=== PATIENT | female | born 1975 | race Caucasian/White ===

== ENCOUNTER → 2021-04-06 14:13 | Outpatient (CLI) | payer OTHER, SELFPAY ==
--- NOTE | 2021-04-06 | FLU_PTH ---
PATIENT: LISANDRO CRAMER LOC: [facility] U#:[id number] AGE/SX: 49/F ROOM: RE04/06/[address]: Dr. Warren Lau MD : 1975 BED: DIS: SPEC #: [id number] RECD: 04/06/21 12:31 STATUS: ISAIAH TONY #: [id number] BERNADETTE: 04/06/21 00:[address]: Warren Lau DEPT: CYTOLOGY RECD BY: Allie Post Tissues: A - Thyroid gland, NOS B - Thyroid gland, NOS C - Thyroid gland, NOS D - Thyroid gland, NOS Procedures: Special Stain Group II Surgery Specimen Level IV Cytospin Fluid Cytology Other HEADER OPERATION: Fine needle aspiration left superior and left mid thyroid PRE-OP DIAGNOSIS: Abnormal thyroid ultrasound TISSUE SUBMITTED: A ? Left superior thyroid nodule fluid, B - Left superior thyroid nodule slides x12, C ? Left mid thyroid nodule fluid, D - Left mid thyroid nodule slides x12 DIAGNOSIS CYTOLOGY A. Fine needle aspiration, left superior thyroid nodule fluid (cytospin and cell block): Adequate for evaluation. Negative, consistent with benign follicular nodule. B. Fine needle aspiration, left superior thyroid nodule (smears): Adequate for evaluation. Negative, consistent with benign follicular/colloid nodule. C. Fine needle aspiration, left mid thyroid nodule fluid (cytospin and cell block): Negative for malignant cells. See comment. D. Fine needle aspiration, left mid thyroid nodule (smears): Adequate for evaluation. Negative, consistent with benign follicular nodule. AM:eladio 04/07/2021 COMMENT C. The specimen contains scattered benign follicular cells and blood. Clinical correlation is suggested. CYTOLOGY STUDY Slides are reviewed. CYTOLOGY GROSS A - Received is 30 ml of light brown cloudy fluid labeled with the patient's name and and designated per the requisition as left superior thyroid. Submitted for cytology preparation including cell block. B - Received are 12 smears labeled with the patient's name and designated per the requisition as left superior thyroid. Submitted for staining. C - Received is 30 ml of dark brown cloudy fluid labeled with the patient's name and and designated per the requisition as left mid thyroid. Submitted for cytology preparation including cell block. D - Received are 12 smears labeled with the patient's name and designated per the requisition as left mid thyroid. Submitted for staining. / eladio 04/06/21 TC:5 CPT: 34250 x2, 35479 x2, 49718 x2 ADDENDUM ADDENDUM ADDENDUM ADDENDUM ADDENDUM ADDENDUM ADDENDUM ADDENDUM ADDENDUM ADDENDUM ADDENDUM ADDENDUM ADDENDUM ADDENDUM 07/13/2021 10:14 ADDENDUM 07/13/2021 10:14 ADDENDUM 07/13/2021 10:14 ADDENDUM 07/13/2021 10:14 ADDENDUM 07/13/2021 10:14 This addendum is added to incorporate an outside pathology consultation report. The case was examined at [facility] (#[id number]) and the following diagnosis was rendered. A & B. Left superior thyroid nodule, fine needle aspiration: Benign. Benign follicular cells and abundant colloid consistent with a benign colloid nodule. C & D. Left mid thyroid nodule, fine needle aspiration: Benign. Benign follicular cells and abundant colloid consistent with a benign colloid nodule. Please see complete above mentioned consultation report in EMR
== END ==
LOC: LAB 14:22
PROVIDERS: PCP Surgery; Visit Provider Surgery
DX: E04.1 Nontoxic single thyroid nodule (principal)
CPT/HCPCS: 88108; 88161; 88305; 88313

== ENCOUNTER 2021-10-21 18:16 | Emergency (ER) | payer OTHER, SELFPAY ==
[2021-10-21 18:17] VITALS: BP 138/109; PULSE 87; RESP 18; TEMP 36.2; O2SAT 97; BMI 29.0
--- NOTE | 2021-10-21 18:20 | EKG12_ITS ---
Test Reason : CP Blood Pressure : / mmHG Vent. Rate : 068 BPM Atrial Rate : 068 BPM P-R Int : 148 ms QRS Dur : 084 ms QT Int : 408 ms P-R-T Axes : 065 014 038 degrees QTc Int : 433 ms Normal sinus rhythm Septal infarct , age undetermined Abnormal ECG Confirmed by SILVIANO SLAUGHTER, ANDRZEJ ([id number]), movie editor GRAHAM MUNOZ ([id number]) on 10/25/2021 8:55:55 AM Referred By: MARILU Confirmed By:ANDRZEJ SHORE MD
--- NOTE | 2021-10-21 19:00 | RAD_ITS ---
STUDY: X-RAY CHEST REASON FOR EXAM: Female, 46 years old. CHEST PAIN chest pain TECHNIQUE: XR Chest 1 View COMPARISON: None FINDINGS: There is no demonstrated pleural abnormality. Normal size heart. Normal mediastinum and geovanna. Normal visualized pulmonary arteries. Normal visualized aortic arch and descending thoracic aorta. There is a dextroscoliosis of the thoracic spine. Normal visualized ribs, clavicles, and shoulders. There is no demonstrated abnormality of the visualized soft tissue structures of the upper abdomen. RAD/Chest 1 View (Portable) IMPRESSION: There are no acute findings. Electronically Signed: Nathan Gagnon MD at 19:59 EDT ,
[2021-10-21 19:01] VITALS: O2SAT 98
[2021-10-21 19:21] LABS: Bacteria 0 SEEN /hpf (None Seen); Mucous, Urine 0 SEEN /hpf (<or=2+); Red Blood Cells-Urine 0 SEEN /hpf (0-5); White Blood Cells 0 SEEN /hpf (0-5)
--- NOTE | 2021-10-21 19:26 | CT_ITS ---
EXAM: CT ANGIOGRAPHY CHEST WITHOUT AND WITH INTRAVENOUS CONTRAST CLINICAL INDICATION: Chest Pain TECHNIQUE: Helically acquired angiography images were obtained of the chest without and with intravenous contrast. This CT exam was performed using one or more of the following dose reduction techniques: automated exposure control, adjustment of the mA and/or kV according to patient size, and/or use of iterative reconstruction technique. This report was created using [employer] report generation technology. MIP reconstructed images were created and reviewed. CONTRAST: IV 100mL [id number]-370 RADIATION DOSE: CTDIvol = 7.07 mGy, DLP = 214.33 mGy-cm COMPARISON: None. FINDINGS: PULMONARY ARTERIES: No demonstrated pulmonary embolism or arterial dissection. AORTA: Unremarkable. Normal in caliber. No evidence of dissection. GREAT VESSELS OF AORTIC ARCH: Unremarkable. Normal in caliber. No evidence of dissection. LUNGS AND PLEURAL SPACES: There are scattered blebs and bullae. This can be seen in pulmonary emphysema. No mass. No pleural effusion or thickening. No pneumothorax. HEART: Unremarkable. Heart size is normal. No pericardial effusion. No signs of right heart strain, ratio of right ventricle to left ventricle measures less than 1. MEDIASTINUM: Unremarkable. No mediastinal or hilar adenopathy. Esophagus is unremarkable. No hiatal hernia. THYROID: Unremarkable. No thyroid lesions. BONES/JOINTS: Unremarkable. No suspicious lytic or blastic abnormality. SOFT TISSUES: There are bilateral breast implants. LIVER: Multiple hypodense lesions in the liver. ACR White Paper guidelines ([place], et al. JACR 2017; 14(11):6743-3603.) suggest the following. For patients with low risk of malignancy, no further follow-up is necessary. For patients with high risk of malignancy (known malignancy with a propensity to metastasize to the liver, cirrhosis, and/or other hepatic risk factors), recommend follow-up abdominal CT or MR in [address]/CTA Chest W/WO Contrast IMPRESSION: 1. Multiple hypodense lesions in the liver. ACR White Paper guidelines ([place], et al. JACR 2017; 14(11):6529-4368.) suggest the following. For patients with low risk of malignancy, no further follow-up is necessary. For patients with high risk of malignancy (known malignancy with a propensity to metastasize to the liver, cirrhosis, and/or other hepatic risk factors), recommend follow-up abdominal CT or MR in 6 months. 2. No demonstrated pulmonary embolism or arterial dissection. Electronically Signed: Nathan Gagnon MD at 20:39 EDT ,
[2021-10-21 19:28] LABS: Absolute Lymphocyte Count 4.13 X10^3/uL (0.83-4.51); Absolute Neutrophil Count 5.3 X10^3/uL (2.0-7.7); Basophil# 0.11 X10^3/uL; Eosinophil# 0.61 X10^3/uL; Eosinophils% 5.7 % (0-5); Hematocrit 41.5 % (37-47); Lymphocyte # 4.13 X10^3/ul (0.83-4.51); Lymphocyte % 38.7 % (19-41); Mean Corp Hgb Conc 33.7 g/dL (32-36); Mean Corpuscular Hgb 32.6 pg (27.0-32.0); Mean Corpuscular Volume 96.5 fL (81-99); Mean Platelet Vol. 8.9 fl (6.2-12.0); Monocyte# 0.53 X10^3/uL; NRBC Flagged by Analyzer 0 % (0-5); Neutrophil # 5.27 X10^3/uL (2.7-7.7); Neutrophil % 49.3 % (47-70); Platelet Count 426 K/mm3 (150-450); White Blood Count 10.7 K/mm3 (4.4-11.0)
[2021-10-21 19:34] LABS: Internal QC Validated? YES +Cl - CLEAR BKGD; Pregnancy, Serum, hCG Quali. NEGATIVE Negative
[2021-10-21 19:34] LABS: Color, Urine Yellow (Yellow); Glucose, Dipstick Normal (Normal); Ketone-Dipstick Negative (Negative); Leukocyte Esterase-Dipstick Negative /ul (Negative); Nitrite-Dipstick Negative (Negative); Occult Blood-Urine Negative /ul (Negative); Protein-Dipstick Negative (Negative); Specific Gravity, Urine 1.005 (1.002-1.030); Urine Bilirubin Dipstick Negative (Negative); Urine Clarity Clear (Clear); Urine Urobilinogen Normal (Normal)
--- NOTE | 2021-10-21 19:37 | EDS_ITS ---
HPI History of Present Illness Chief Complaint: Chest Pain Narrative Narrative: Patient presents with intermittent chest pain that she has had for approximately 1 week. Will only last a few minutes and then dissipate. She is concerned because she states she is having heart problems for which she is following up with a upper cutter machine in the future. She states she has had EKGs which show left atrial enlargement and something else. She denies any exacerbating or alleviating factors to her chest pain. Additionally, over the last few days she developed right thoracic back pain in the area of her kidneys. She denies any dysuria or hematuria. No fevers or chills. She is a smoker. She presents because of the chest pain and the lower thoracic back pain. [facility] Medical History Asthma Chronic back pain Graves disease Home Medications albuterol sulfate 90 mcg/actuation aerosol inhaler 1 inh inhalation PRN PRN sob/wheezing 10/21/21 [History Last Taken Unknown] levothyroxine 125 mcg tablet 125 mcg PO DAILY 10/21/21 [History Last Taken Unknown] montelukast 10 mg tablet 10 mg PO DAILY 10/21/21 [History Last Taken Unknown] Allergy/AdvReac Type Severity Reaction Status Date / Time No Known Allergies Allergy Verified 10/21/21 18:19 Surgical History History of back surgery History of hysterectomy Hx of breast implants, bilateral Hx of thyroidectomy Social History Smoking Status: Current every day smoker tobacco type: cigarettes ROS ROS ED ROS Narrative Constitutional: No fever, no chills. HEENT: No sore throat. No neck pain. No loss of vision. No rhinorrhea. Cardiovascular: Midsternal chest pain, intermittent. No palpitations. No pedal edema. Respiratory: No cough, no shortness of breath. Abdominal: No abdominal pain. No nausea. No vomiting. Genitourinary: No dysuria. No hematuria. Musculoskeletal: No myalgias. No arthralgias. Right-sided lower thoracic/upper lumbar back pain around kidney area. Neurologic: No headaches. No dizziness. No lightheadedness. Skin: No rash. No change in color. Psychiatric: No depression. No anxiety. EXAM Physical Exam Narrative Exam Narrative: Afebrile. Vital signs noted. HEENT: Normocephalic. Atraumatic. PERRL, EOMI. Neck soft and supple. No point tenderness or step off. Cardiovascular: Regular rate and rhythm. No murmurs, rubs, or gallops appreciated. Respiratory: No tachypnea. Lungs clear to auscultation bilaterally. Gastrointestinal: Abdomen soft, nontender, with normoactive bowel sounds. No rebound or guarding. Neurological: Awake. Alert. Nonfocal, nonlateralizing. Skin: No rash. Normal color. No pallor. Musculoskeletal: No pedal edema. Full range of motion extremities. Const Vital Signs: 10/21/21 18:17 10/21/21 18:44 10/21/21 19:01 Temperature 97.1 F L Temperature Source Temporal Pulse Rate 87 Respiratory Rate 18 Respiratory Effort Normal Non-Labored Blood Pressure 138/109 H Blood Pressure Mean 118 Pulse Ox 97 98 Oxygen Delivery Method Room Air Room Air 10/21/21 20:49 10/21/21 21:00 Temperature Temperature Source Pulse Rate 69 60 Respiratory Rate 17 14 Respiratory Effort Blood Pressure 103/61 124/81 H Blood Pressure Mean 75 95 Pulse Ox 99 99 Oxygen Delivery Method Room Air Room Air Heart Score History: Slightly/Non-Suspicious ECG: Normal Age: >45 - <65 years Risk Factors: 1 or 2 Risk Factors Score: 2 MDM MDM MDM Narrative Medical decision making narrative: Nursing protocol orders were instituted. Her EKG demonstrates normal sinus rhythm at 68 bpm without ectopy or acute ST changes. She did state that she has had several EKGs which showed septal something. This is interpreted by the computer as septal infarct, age indeterminate. However, my interpretation shows no evidence of acute ST changes or STEMI. CBC grossly normal with normal white count 10.7, hemoglobin normal at 14. Platelet count normal at 426. Electrolyte panel is unremarkable. She has been having chest pain for a week. Her 0-hour troponin is less than 3. Serum is negative. Urinalysis shows no evidence of blood or infection. Chest x-ray interpreted by myself shows no acute process. Given her right flank pain, I did obtain a CTA to look for pulmonary embolism which shows no acute process, no PE. There is no dissection. At this point in time, she had been given Toradol for analgesia. I feel she can be discharged safely home with follow-up. Return instructions to the emergency department were reviewed. She will [facility] as scheduled. Disposition is discharged home in stable condition. Lab Data Attestation: I reviewed the patient's lab results. Labs: Laboratory Results - last 24 hr 10/21/21 10/21/21 10/21/21 19:13 19:13 19:13 WBC 10.7 RBC 4.30 Hgb 14.0 Hct 41.5 MCV 96.5 MCH 32.6 H MCHC 33.7 RDW Std Deviation 46.0 H RDW Coeff of Chela 13.0 Plt Count 426 MPV 8.9 Immature Gran % (Auto) 0.300 Neut % (Auto) 49.3 Lymph % (Auto) 38.7 [place] % (Auto) 5.0 Eos % (Auto) 5.7 H Baso % (Auto) 1.0 Absolute Neuts (auto) 5.3 Absolute Lymphs (auto) 4.13 Nucleated RBC % 0 Sodium 137 Potassium 3.6 Chloride 107 Carbon Dioxide 25.0 Anion Gap 5 BUN 7 Creatinine 0.87 Estim Creat Clear Calc 66.84 Est GFR (MDRD) Af Amer 90 Est GFR (MDRD) Non-Af 74 BUN/Creatinine Ratio 8.0 L Glucose 93 Calcium 8.9 Troponin I High Sens < 3 L Serum , Qual NEGATIVE Urine Color Urine Clarity Urine pH Ur Specific [place] Urine Protein Urine Glucose (UA) Urine Ketones Urine Occult Blood Urine Nitrite Urine Bilirubin Urine Urobilinogen Ur Leukocyte Esterase Urine RBC Urine WBC Ur Squamous Epith Cells Urine Bacteria Urine Mucus 10/21/21 19:15 WBC RBC Hgb Hct MCV MCH MCHC RDW Std Deviation RDW Coeff of [place] Plt Count MPV Immature Gran % (Auto) Neut % (Auto) Lymph % (Auto) [place] % (Auto) Eos % (Auto) Baso % (Auto) Absolute Neuts (auto) Absolute Lymphs (auto) Nucleated RBC % Sodium Potassium Chloride Carbon Dioxide Anion Gap BUN Creatinine Estim Creat Clear Calc Est GFR (MDRD) Af Amer Est GFR (MDRD) Non-Af BUN/Creatinine Ratio Glucose Calcium Troponin I High Sens Serum , Qual Urine Color Yellow Urine Clarity Clear Urine pH 7.0 Ur Specific [place] 1.005 Urine Protein Negative Urine Glucose (UA) Normal Urine Ketones Negative Urine Occult Blood Negative Urine Nitrite Negative Urine Bilirubin Negative Urine Urobilinogen Normal Ur Leukocyte Esterase Negative Urine RBC 0 SEEN Urine WBC 0 SEEN Ur Squamous Epith Cells 0-5 SEEN Urine Bacteria 0 SEEN Urine Mucus 0 SEEN Radiography Diagnostic Testing: Clinical Impression(s) from Imaging Studies Chest X-Ray 10/21/21 19:00 IMPRESSION: There are no acute findings. Electronically Signed: Nathan Gagnon MD at 19:59 EDT , Chest CTA 10/21/21 19:26 IMPRESSION: 1. Multiple hypodense lesions in the liver. ACR White Paper guidelines (June, et al. JACR 2017; 14(11):1158-5182.) suggest the following. For patients with low risk of malignancy, no further follow-up is necessary. For patients with high risk of malignancy (known malignancy with a propensity to metastasize to the liver, cirrhosis, and/or other hepatic risk factors), recommend follow-up abdominal CT or MR in 6 months. 2. No demonstrated pulmonary embolism or arterial dissection. Electronically Signed: Nathan Gagnon MD at 20:39 EDT , Discharge Plan Triage Chief Complaint: Chest Pain ED Provider: Baltazar Alexis Dx/Rx/DC Orders Clinical Impression: Chest pain, Acute thoracic back pain, Acute right flank pain Instructions: ED Chest Pain, Noncardiac, ED Chest Pain, Uncertain Cause, ED Flank Pain, Uncertain Cause Prescriptions: No Action levothyroxine 125 mcg tablet 125 mcg PO DAILY Label Comments: TAKE 1 TABLET BY MOUTH ONCE DAILY montelukast 10 mg tablet 10 mg PO DAILY albuterol sulfate 90 mcg/actuation HFA aerosol inhaler 1 inh INHALATION PRN PRN (Reason: sob/wheezing) Primary Care Provider: Warren Lau Referrals: Warren Lau MD [Primary Care Provider] - Activity Restrictions/Additional Instructions: Follow-up with [facility] as scheduled. Disposition Disposition: Home, Self Care
[2021-10-21 19:47] LABS: Anion Gap 5 (5-15); BUN 7 mg/dL (7-18); Calcium,Total 8.9 mg/dL (8.5-10.1); Chloride 107 mmol/L (98-107); Creatinine, Serum 0.87 mg/dL (0.55-1.02); EST Glomerular Filtration Rate 74 mL/min (>60); Est Glom Filt Rate - Afr Amer 90 mL/min (>60); Estimated Creatinine Clearance 66.84 ml/min; Glucose 93 mg/dL (74-106); Potassium 3.6 mmol/L (3.5-5.1); Sodium Level 137 mmol/L (136-145); Troponin-I HS < 3 pg/mL (3.0-54.0)
[2021-10-21 20:49] VITALS: BP 103/61; PULSE 69; RESP 17; O2SAT 99
[2021-10-21] MEDS: Ketorolac 30 MG/ML Syringe IV (20:57)
[2021-10-21 21:00] VITALS: BP 124/81; PULSE 60; RESP 14; O2SAT 99
[2021-10-21 21:03] LABS: Squamous Epithelial Cells - UA 0-5 SEEN /hpf (5-10)
[2021-10-21 22:33] VITALS: BP 102/63; PULSE 62; RESP 16; O2SAT 99
== END 2021-10-21 22:34 | disposition home or self-care (01) ==
PROVIDERS: Emergency Provider Emergency Medicine; PCP Surgery; Visit Provider Emergency Medicine
DX: R10.9 Unspecified abdominal pain (principal); Z98.82 Breast implant status; F17.210 Nicotine dependence, cigarettes, uncomplicated; M54.6 Pain in thoracic spine; G89.29 Other chronic pain; E05.00 Thyrotoxicosis with diffuse goiter without thyrotoxic crisis or storm; J45.909 Unspecified asthma, uncomplicated
CPT/HCPCS: 71045; 71275; 80048; 81001; 84484; 84703; 85025; 93005; 96374; 99285; Q9967; A4216

== ENCOUNTER 2021-11-01 19:41 | Emergency (ER) | payer OTHER, SELFPAY ==
[2021-11-01 19:41] VITALS: BP 120/75; PULSE 100; RESP 22; TEMP 37.5; O2SAT 98; BMI 29.5
[2021-11-01 19:45] VITALS: BP 120/75; PULSE 100; RESP 22; TEMP 37.5; O2SAT 98
--- NOTE | 2021-11-01 20:01 | EKG12_ITS ---
Test Reason : covid Blood Pressure : / mmHG Vent. Rate : 088 BPM Atrial Rate : 088 BPM P-R Int : 152 ms QRS Dur : 080 ms QT Int : 358 ms P-R-T Axes : 074 031 061 degrees QTc Int : 433 ms Normal sinus rhythm Normal ECG Confirmed by ANDRZEJ SHORE MD ([id number]), editor index ALEXANDRU DESHPANDE ([id number]) on 11/03/2021 2:13:55 PM Referred By: Trisha Confirmed By:ANDRZEJ SHORE MD
--- NOTE | 2021-11-01 20:02 | EDS_ITS ---
HPI History of Present Illness Chief Complaint: Shortness of Breath Informant: patient Onset/Context/Timing Onset: Yesterday Context: Gradual Onset Current Severity: Mild Maximum Severity: Moderate Narrative Narrative: Patient developed body aches, fever, chest heaviness last evening. Symptoms continued throughout the day today. She took a home COVID test tonight and it was positive. She did have COVID 1 time previous. She has not been vaccinated. Patient does have a history of asthma and recently had her thyroid removed. She also complains of chest heaviness throughout the day today and states they believe that she may have had a heart attack late last year. She had a normal EKG in January but a repeat EKG in July showed evidence of an RI. She reports having an episode of chest pain in February that she did not seek treatment for. [facility] Medical History Asthma Chronic back pain Graves disease Home Medications albuterol sulfate 90 mcg/actuation aerosol inhaler 1 inh inhalation PRN PRN sob/wheezing 10/21/21 [History Last Taken Unknown] levothyroxine 125 mcg tablet 125 mcg PO DAILY 10/21/21 [History Last Taken Unknown] montelukast 10 mg tablet 10 mg PO DAILY 10/21/21 [History Last Taken Unknown] nirmatrelvir 300 mg (150 mg x2)-ritonavir 100 mg tablet,dose pack(EUA) (Paxlovid) See Rx Instructions PO .COMPLEX #30 tabs 11/01/21 [Rx Last Taken Unknown] Allergy/AdvReac Type Severity Reaction Status Date / Time No Known Allergies Allergy Verified 10/21/21 18:19 Surgical History History of back surgery History of hysterectomy Hx of breast implants, bilateral Hx of thyroidectomy Social History Smoking Status: Current every day smoker tobacco type: cigarettes ROS ROS ED Constitutional Constitutional ED: Reports chills and fever(s) Eyes Eyes: Denies change in vision or discharge from eye(s) ENT ENT ED: Denies discharge from eye(s), rhinorrhea or sore throat Cardiovascular Cardiovascular: Reports chest pain; Denies palpitations Respiratory/Chest Respiratory/Chest: Reports dyspnea; Denies cough Gastrointestinal Gastrointestinal: Denies abdominal pain, diarrhea, nausea or vomiting Genitourinary Genitourinary ED: Denies difficulty urinating or dysuria Musculoskeletal Musculoskeletal: Reports myalgias; Denies back pain or extremity pain Integumentary Denies Abrasions or rash Neurologic Neurologic: Reports headache(s); Denies weakness Allergic/Immunologic Allergic/Immunologic ED: Denies lip swelling or urticaria EXAM Physical Exam Const Vital Signs: 11/01/21 19:41 11/01/21 19:45 11/01/21 19:50 Temperature 99.5 F H 99.5 F H Temperature Source Temporal Temporal Pulse Rate 100 100 Respiratory Rate 22 H 22 H Respiratory Effort Short of Breath Blood Pressure 120/75 120/75 Blood Pressure Mean 90 90 Pulse Ox 98 98 Oxygen Delivery Method Room Air Room Air 11/01/21 20:23 11/01/21 22:08 11/01/21 22:32 Temperature 99.6 F H Temperature Source Temporal Pulse Rate 87 84 80 Respiratory Rate 22 H 18 20 H Respiratory Effort Blood Pressure 109/70 117/58 L 100/67 Blood Pressure Mean 83 77 78 Pulse Ox 96 98 97 Oxygen Delivery Method Room Air Room Air Room Air Positive well nourished and well developed General Appearance ED: well developed HEENT Reports normocephalic and head/scalp atraumatic Eyes PERRL and EOMs intact bilaterally Neck supple Chest Wall inspection of chest normal and palpation of chest normal Resp normal respiratory effort and clear to auscultation bilaterally Cardio regular rate and regular rhythm GI non-tender Auscultation: hypoactive bowel sounds Palpation: soft Back/Spine no CVA tenderness Extremity normal to inspection Neuro oriented x3 and no sensory deficits noted Sensorium / Orientation: alert Motor Exam: strength 5/5 throughout Psych mental status grossly normal Skin no rashes or lesions noted MDM MDM MDM Narrative Medical decision making narrative: Patient placed on cardiac catheterization technician. EKG and chest x-ray obtained. Lab work ordered. Patient was given Toradol and Benadryl along with IV fluids. Lab Data Attestation: I reviewed the patient's lab results. Labs: Laboratory Results - last 24 hr 11/01/21 11/01/21 11/01/21 20:20 20:20 20:20 WBC 6.4 RBC 3.76 L Hgb 12.3 Hct 36.4 L MCV 96.8 MCH 32.7 H MCHC 33.8 RDW Std Deviation 47.6 H RDW Coeff of Chela 13.3 Plt Count 327 MPV 9.0 Immature Gran % (Auto) 0.300 Neut % (Auto) 62.9 Lymph % (Auto) 19.6 [place] % (Auto) 12.1 H Eos % (Auto) 3.8 Baso % (Auto) 1.3 H Absolute Neuts (auto) 4.0 Absolute Lymphs (auto) 1.25 Nucleated RBC % 0 D-Dimer Quant (PE/DVT) 0.59 H* Sodium 139 Potassium 3.2 L Chloride 110 H Carbon Dioxide 24.0 Anion Gap 5 BUN 8 Creatinine 0.92 Estim Creat Clear Calc 63.21 Est GFR (MDRD) Af Amer 84 Est GFR (MDRD) Non-Af 70 BUN/Creatinine Ratio 8.7 L Glucose 79 Calcium 8.3 L Troponin I High Sens < 3 L Radiography Chest X-Ray - ED: 1 View, Read by ED Physician, Normal, Heart, Lungs and Medi astinum Diagnostic Testing: Clinical Impression(s) from Imaging Studies Chest X-Ray 11/01/21 20:18 IMPRESSION: There are no acute findings. Electronically Signed: Nathan Gagnon MD at 20:31 EDT Reading Location ID and State: [facility] / [place] , Service support , Chest CTA 11/01/21 21:50 IMPRESSION: 1. No pulmonary embolism to the subsegmental level.. 2. Mild bronchial wall thickening and scattered bronchial impaction, may be related to small airways disease or bronchitis. 3. [id number] emphysematous changes. 4. Pulmonary nodules measuring up to 3 mm, similar compared to the prior. *Fleischner Society Recommendations (Radiology 2005;237:395-400.) (Follow-up and management of nodules smaller than 8 mm detected incidentally at non-screening CT. Newly detected indeterminate nodule in persons 35 years of age or older.) Low risk patient: Minimal or absent history of smoking and of other known risk factors. <= 4mm: No followup needed >4-6mm: Follow-up CT at 12 months, if unchanged - no further followup >6-8mm: Initial Follow-up CT at 6-12 months, then at 18-24 months if no change >8mm: Follow-up CT at 3, 9, and 24 months; FDG PET scan; and or biopsy High risk patient: History of smoking or of other known risk factors. <= 4mm: Follow-up CT at 12 months, if unchanged - no further followup >4-6mm: Initial Follow-up CT at 6-12 months, then at 18-24 months if no change >6-8mm: Initial Follow-up CT at 3-6 months, then at 9-12 and 24 months if no change >8mm: Follow-up CT at 3, 9, and 24 months; FDG PET scan; and or biopsy Note: Non-solid (ground-glass) or partly solid nodules may require longer follow-up to Electronically Signed: Lars Li MD at 22:45 EDT , EKG Initial EKG: Attestation: I personally reviewed and interpreted this EKG as follows: Interpretation: Sinus Rhythm (Sinus 88 with no acute ischemia.) Treatment and Re-Evaluation Narrative: On repeat evaluation patient resting comfortably. Test results discussed with patient and at bedside. CBC is unremarkable. Chemistry studies significant for slightly low potassium at 3.2, given oral potassium replacement. Troponin is negative. D-dimer is elevated at 0.59. Chest x-ray per my interpretation reveals no infiltrate. CTA of the chest reveals no PE. EKG reveals no ischemia. Patient is interested in taking Paxil bid. She does have a history of asthma. This prescription will be written for her. Return instructions are provided. Discharge Plan Triage Chief Complaint: Shortness of Breath ED Provider: Leatha Monte Dx/Rx/DC Orders Clinical Impression: COVID-19 Instructions: Coronavirus Disease 2019 (COVID-19): Overview, Coronavirus Disease 2019 (COVID-19): Caring for Yourself or Others Prescriptions: New Paxlovid (EUA) 300 mg (150 mg x 2)-100 mg tablets,dose pack See Rx Instructions .ROUTE .COMPLEX Qty: 30 0RF Rx Instructions: take TWO 150 mg tablets of nirmatrelvir with ONE 100 mg tablet of ritonavir twice daily for 5 days No Action levothyroxine 125 mcg tablet 125 mcg PO DAILY Label Comments: TAKE 1 TABLET BY MOUTH ONCE DAILY montelukast 10 mg tablet 10 mg PO DAILY albuterol sulfate 90 mcg/actuation HFA aerosol inhaler 1 inh INHALATION PRN PRN (Reason: sob/wheezing) Primary Care Provider: Warren Lau Referrals: Warren Lau MD [Primary Care Provider] - Activity Restrictions/Additional Instructions: Follow-up with your family doctor in 10 to 14 days Disposition Disposition: Home, Self Care
--- NOTE | 2021-11-01 20:18 | RAD_ITS ---
STUDY: X-RAY CHEST REASON FOR EXAM: Female, 46 years old. CHEST PAIN chest pain, covid TECHNIQUE: XR Chest 1 View COMPARISON: 10/21/2021 FINDINGS: There is no demonstrated pleural abnormality. Normal size heart. Normal mediastinum and geovanna. Normal visualized pulmonary arteries. Normal visualized aortic arch and descending thoracic aorta. There is a dextroscoliosis of the thoracic spine. Normal visualized ribs, clavicles, and shoulders. There is no demonstrated abnormality of the visualized soft tissue structures of the upper abdomen. RAD/Chest 1 View (Portable) IMPRESSION: There are no acute findings. Electronically Signed: Nathan Gagnon MD at 20:31 EDT ,
[2021-11-01] MEDS: 0.9% Normal Saline 1,000 ML 1000 ML IV (20:19)
[2021-11-01] MEDS: Ketorolac 30 MG/ML Syringe IV (20:19)
[2021-11-01] MEDS: DiphenhydrAMINE 50 MG/ML Syringe 12.5 MG IV (20:19)
[2021-11-01 20:23] VITALS: BP 109/70; PULSE 87; RESP 22; TEMP 37.6; O2SAT 96
[2021-11-01 20:33] LABS: Absolute Lymphocyte Count 1.25 X10^3/uL (0.83-4.51); Basophil# 0.08 X10^3/uL; Basophil% 1.3 % (0-1); Eosinophil# 0.24 X10^3/uL; Eosinophils% 3.8 % (0-5); Hematocrit 36.4 % (37-47); Hemoglobin 12.3 g/dL (12.0-15.0); Lymphocyte # 1.25 X10^3/ul (0.83-4.51); Lymphocyte % 19.6 % (19-41); Mean Corp Hgb Conc 33.8 g/dL (32-36); Mean Corpuscular Hgb 32.7 pg (27.0-32.0); Mean Corpuscular Volume 96.8 fL (81-99); Monocyte# 0.77 X10^3/uL; Monocyte% 12.1 % (0-10); NRBC Flagged by Analyzer 0 % (0-5); Neutrophil # 4.01 X10^3/uL (2.7-7.7); Neutrophil % 62.9 % (47-70); Platelet Count 327 K/mm3 (150-450); RBC Distribution Width CV 13.3 % (11.6-14.6); RBC Distribution Width SD 47.6 fl (35.1-43.9); Red Blood Count 3.76 M/mm3 (4.2-5.4); White Blood Count 6.4 K/mm3 (4.4-11.0)
[2021-11-01 21:30] LABS: Anion Gap 5 (5-15); BUN 8 mg/dL (7-18); BUN/Creat Ratio 8.7 RATIO (10-20); Calcium,Total 8.3 mg/dL (8.5-10.1); Chloride 110 mmol/L (98-107); Creatinine, Serum 0.92 mg/dL (0.55-1.02); EST Glomerular Filtration Rate 70 mL/min (>60); Est Glom Filt Rate - Afr Amer 84 mL/min (>60); Estimated Creatinine Clearance 63.21 ml/min; Glucose 79 mg/dL (74-106); Potassium 3.2 mmol/L (3.5-5.1); Sodium Level 139 mmol/L (136-145); Troponin-I HS < 3 pg/mL (3.0-54.0)
[2021-11-01 21:39] LABS: D-Dimer Quantitative (DVT/PE) 0.59 FEU/ug/m (0.27-0.49)
--- NOTE | 2021-11-01 21:50 | CT_ITS ---
STUDY: CTA CHEST REASON FOR EXAM: Female, 46 years old. sob, covid, elevated d-dimer RADIATION DOSAGE (If Supplied By Facility): CTDIvol = ( 4.22 ) mGy, DLP = ( 169.83 ) mGycm TECHNIQUE: The examination was performed with the intravenous administration of IV 100mL Isovue-370. Post-processing of the angiographic images was performed, with multiplanar reformation and 3D reconstruction. Individualized dose optimization techniques were used for this CT. COMPARISON: CT chest 10/21/2021 FINDINGS: LUNGS: Mild bilateral bronchial wall thickening and scattered bronchial impaction. [id number] centrilobular and paraseptal emphysema worst in the upper lobes. Right upper lobe 3 mm pulmonary nodules, similar compared to the prior. AORTA/GREAT VESSELS: No aneurysm.. PULMONARY VESSELS: Normal. PLEURA: Normal. MEDIASTINUM: Normal. UPPER ABDOMEN: Multiple hypoattenuating hepatic lesions, similar compared to the prior.. BONES/SOFT TISSUES: Bilateral breast prostheses. No acute osseous abnormality.. OTHER: None. CT/CTA Chest W/WO Contrast IMPRESSION: 1. No pulmonary embolism to the subsegmental level.. 2. Mild bronchial wall thickening and scattered bronchial impaction, may be related to small airways disease or bronchitis. 3. Jmce-pb-ybhzxhpb emphysematous changes. 4. Pulmonary nodules measuring up to 3 mm, similar compared to the prior. *Fleischner Society Recommendations (Radiology 2005;[id number].) (Follow-up and management of nodules smaller than 8 mm detected incidentally at non-screening CT. Newly detected indeterminate nodule in persons 35 years of age or older.) Low risk patient: Minimal or absent history of smoking and of other known risk factors. <= 4mm: No followup needed >4-6mm: Follow-up CT at 12 months, if unchanged - no further followup >6-8mm: Initial Follow-up CT at 6-12 months, then at 18-24 months if no change >8mm: Follow-up CT at 3, 9, and 24 months; FDG PET scan; and or biopsy High risk patient: History of smoking or of other known risk factors. <= 4mm: Follow-up CT at 12 months, if unchanged - no further followup >4-6mm: Initial Follow-up CT at 6-12 months, then at 18-24 months if no change >6-8mm: Initial Follow-up CT at 3-6 months, then at 9-12 and 24 months if no change >8mm: Follow-up CT at 3, 9, and 24 months; FDG PET scan; and or biopsy Note: Non-solid (ground-glass) or partly solid nodules may require longer follow-up to Electronically Signed: Lars Li MD at 22:45 EDT ,
[2021-11-01 22:08] VITALS: BP 117/58; PULSE 84; RESP 18; O2SAT 98
[2021-11-01] MEDS: Potassium Chloride Oral Tablet 20 MEQ 40 MEQ PO (22:09)
[2021-11-01 22:32] VITALS: BP 100/67; PULSE 80; RESP 20; O2SAT 97
== END 2021-11-01 23:31 | disposition home or self-care (01) ==
PROVIDERS: Emergency Provider Emergency Medicine; PCP Surgery; Visit Provider Emergency Medicine
DX: U07.1 COVID-19 (principal); F17.210 Nicotine dependence, cigarettes, uncomplicated; J45.909 Unspecified asthma, uncomplicated
CPT/HCPCS: 71045; 71275; 80048; 84484; 85025; 85379; 93005; 96361; 96374; 96375; 99284; J7030; Q9967; A4216

== ENCOUNTER → 2021-12-20 | Outpatient (CLI) | payer OTHER, SELFPAY | END | disposition home or self-care (01) | PROVIDERS: PCP Nurse Practitioner Family; Referring Provider Internal Medicine Cardiovascular Disease; Visit Provider Internal Medicine Cardiovascular Disease | DX: R06.02 Shortness of breath (principal) | CPT/HCPCS: 93225; 93226 ==

== ENCOUNTER 2022-10-30 10:56 | Day surgery (SDC) | payer OTHER, SELFPAY ==
[2022-10-30] VITALS (7 sets, daily range): BP systolic 96–121; BP diastolic 41–93; PULSE 53–63; RESP 16–18; TEMP 36.2–36.8; O2SAT 99–100; BMI 29.2
--- NOTE | 2022-10-30 11:30 | RAD_ITS ---
STUDY: X-RAY - SACROILIAC JOINTS REASON FOR EXAM: Female, 47 years old. Intraprocedural digital documentation views of the left sacroiliac injection. TECHNIQUE: A single frontal digital documentation view(s) of the left sacroiliac joint were obtained. COMPARISON: None. FINDINGS: Single digital documentation of the left sacroiliac joint shows contrast within the intra-articular portion of the joint. RAD/Fluoro Guided Needle Placement IMPRESSION: Intra-articular digital documentation reviewed. Electronically Signed: Michael Marie MD at 13:53 EDT ,
[2022-10-30] MEDS: Lactated Ringers 1,000 ML 15 ML IV (11:55)
[2022-10-30] MEDS: Lidocaine 1% (30 ml sdv) 30 ML Vial (12:11)
[2022-10-30] MEDS: MethylPREDNISolone Acetate 40 MG/ML Vial IM (12:11)
--- NOTE | 2022-10-30 12:14 | OP.PCM_ITS ---
Report of Operation Date of Procedure: 10/30/22 Description of Surgical Findings:: PREOPERATIVE DIAGNOSES: 1. Sacroiliitis. 2. Sacroiliac joint dysfunction. POSTOPERATIVE DIAGNOSES: 1. Sacroiliitis. 2. Sacroiliac joint dysfunction. PROCEDURE PERFORMED: Right-sided sacroiliac joint steroid injection under fluoroscopy guidance. ANESTHESIA: MAC. BLOOD LOSS: Minimal. COMPLICATIONS: None. DESCRIPTION OF PROCEDURE: History and physical of today was reviewed. Risks and benefits of the procedure were explained. The patient understood and agreed to the procedure. Informed consent was obtained. IV inserted per routine protocol. The patient was taken to the operating room and placed in the prone position with a pillow positioned underneath the abdomen. The right lower back and buttock area was prepped and draped in a sterile fashion using iodine x3. Under fluoroscopy guidance on an AP view, the right SI joint was visualized. The skin and subcutaneous tissue was anesthetized with approximately 3 mL of 1% lidocaine using a 25-gauge regular needle. Under direct visualization with fluoroscopy at approximately 15-degree angle, using a 22-gauge 3-1/2-inch spinal needle, the needle was advanced via the skin. The tip of the needle was maneuvered and directed towards the inferior one-third of the posterior SI joint. Once the tip of the needle was at the vicinity of the joint, after negative aspiration for blood or CSF, a total of 1 mL of contrast was injected to confirm correct placement of the needle as well as cephalocaudal spread. Confirmation was obtained on AP as well as oblique view. After repeated nega tive aspiration and confirmation, a total of 4 mL of preservative-free 0.25% Marcaine with 40 mg of Depo-Medrol was injected in and around the SI joint. The needle was then removed intact. The patient experienced no sign or symptoms of intrathecal or intravascular injection. The patient experienced no paresthesia. The procedure was completed without any apparent difficulty or any complications. The patient appeared to tolerate it well. ASSESSMENT AND PLAN: This is a 47-year-old female with sacroiliitis, sacroiliac joint dysfunction status post right-sided sacroiliac joint steroid injection under fluoroscopic guidance, patient will continue her current medications, patient will follow in approximately 2 weeks for reevaluation.
== END 2022-10-30 13:02 | disposition home or self-care (01) ==
LOC: SDC 10:57 → AC 11:33
PROVIDERS: PCP Nurse Practitioner Family; Referring Provider Anesthesiology Pain Medicine; Visit Provider Anesthesiology Pain Medicine
PROC: 3E0U3BZ Introduction of Anesthetic Agent into Joints, Percutaneous Approach (ICD-10-PCS; CPT 64451; principal; 2022-10-30 12:25)
DX: M46.1 Sacroiliitis, not elsewhere classified (principal); G89.29 Other chronic pain; J45.909 Unspecified asthma, uncomplicated
CPT/HCPCS: 27096; 76000; 77002

== ENCOUNTER → 2022-11-25 | Outpatient (CLI) | payer OTHER, SELFPAY ==
--- NOTE | 2022-11-25 09:14 | MRI_ITS ---
STUDY: MRI LUMBAR SPINE WITHOUT CONTRAST REASON FOR EXAM: Female, 47 years old. CAUDA EQUINA, PAIN INTO BILATERAL LEGS, H/O DDD, SCOLIOSIS AND HNP L4-L5 TECHNIQUE: Standardized fat and water weighted pulse sequences were obtained in the sagittal and axial planes. COMPARISON: None FINDINGS: T12-L1: Normal endplates. Normal disc height, hydration and morphology. Normal bilateral facet joints. Normal central canal and bilateral lateral recesses. Normal bilateral intervertebral neural foramina. Normal lumbar lordosis. Mild dextroscoliosis of the thoracolumbar spine centered at T11. Normal conus medullaris that terminates at the T12/L1 to L1-2: Normal endplates. Normal disc height, hydration and morphology. Normal bilateral facet joints. Normal central canal and bilateral lateral recesses. Normal bilateral intervertebral neural foramina. L2-3: Small left foraminal protrusion produces moderate left neural foraminal stenosis with abutment of the left L2 nerve root laterally. No central spinal stenosis. L3-4: Mild bilateral facet hypertrophy and moderate ligament flavum hypertrophy. Mild bilobed disc protrusion produces mild spinal stenosis and mild bilateral neural foraminal stenosis. Associated Modic type I endplate changes. L4-5: Suspect left laminectomy. Mild broad disc protrusion with a left paracentral and foraminal annular tear produces mild spinal stenosis, mild right neural foraminal stenosis and moderate left neural foraminal stenosis with abutment of the left L4 nerve roots bilaterally. L5-S1: Normal endplates. Normal disc height, hydration and morphology. Normal bilateral facet joints. Normal central canal and bilateral lateral recesses. Normal bilateral intervertebral neural foramina. Normal visualized sacral ala. Normal visualized paraspinous soft tissue structures. MRI/Spine Lumbar (Routine) IMPRESSION: Mild dextroscoliosis and degenerative disc disease as described above. Electronically Signed: Chris Sen MD at 10:54 EDT ,
== END | disposition home or self-care (01) ==
PROVIDERS: PCP Nurse Practitioner Family; Referring Provider Nurse Practitioner Acute Care; Visit Provider Nurse Practitioner Acute Care
DX: M46.96 Unspecified inflammatory spondylopathy, lumbar region (principal); M46.1 Sacroiliitis, not elsewhere classified; M51.37 Other intervertebral disc degeneration, lumbosacral region; M96.1 Postlaminectomy syndrome, not elsewhere classified; M41.86 Other forms of scoliosis, lumbar region; M47.27 Other spondylosis with radiculopathy, lumbosacral region
CPT/HCPCS: 72148

== ENCOUNTER 2023-04-30 08:23 | Day surgery (SDC) | payer BC, SELFPAY ==
[2023-04-30] VITALS (7 sets, daily range): BP systolic 101–113; BP diastolic 61–74; PULSE 48–64; RESP 16–18; TEMP 36.2–36.3; O2SAT 98–100; BMI 29.2
--- OUTSIDE RECORDS SUMMARY | 2023-04-30 08:37 | XMS RPT_ITS | CCD ---
Author Name Unknown Address [address] [place] [address] Organization [facility] Care Team Providers Care Urology Physician Assistant Name Role Phone DUBCHUK, SANAM Unavailable Unavailable DUBCHUK, SANAM Unavailable Unavailable SAID, TAMER Unavailable Unavailable ONEIDA, REINALDO Unavailable Unavailable SAID, TAMER Unavailable Unavailable DUBCHUK, SANAM Unavailable Unavailable DUBCHUK, SANAM Unavailable Unavailable SAID, TAMER Unavailable Unavailable RATAUL, CHA Unavailable Unavailable ALHADDAD, ALI GHALIB Unavailable Unavailable Rogelio EDUCATION DEPARTMENT CHAIR.[facility] Primary Care Provider Rogelio EDUCATION DEPARTMENT CHAIR.[facility] Primary Care Provider Rogelio EDUCATION DEPARTMENT CHAIR.[facility] Primary Care Provider ELIEL HOANG Attending Unavailable ROGELIO, JUWAN Referring Unavailable ROGELIO, JUWAN Primary Care Unavailable FRANCOIS DESOUZA Attending Unavailable ROGELIO, JUWAN Referring Unavailable ROGELIO, JUAWN Primary Care Unavailable JUANITA RENE Attending Unavailable ZHENG, BAL Referring Unavailable ROGELIO, JUWAN Primary Care Unavailable ZHENG, BAL Admitting Unavailable ZHENG, BAL Attending Unavailable ROGELIO, JUWAN Primary Care Unavailable Rogelio EDUCATION DEPARTMENT CHAIR.[facility] Primary Care Provider Unavailable Primary Care Provider Unavailabl e Unavailable Primary Care Provider Unavailabl e WARREN MELGOZA Attending Unavailable ROGELIO, JUWAN Referring Unavailable ROGELIO, JUWAN Primary Care Unavailable WARREN MELGOZA Attending Unavailable ABADWARREN Referring Unavailable ROGELIO, JUWAN Primary Care Unavailable WARREN MELGOZA Attending Unavailable WARREN MELGOZA Referring Unavailable ROGELIO, JUWAN Primary Care Unavailable ROGELIO, JUWAN Primary Care Unavailable IVETT ASH Referring Unavailable ROGELIO, JUWAN Primary Care Unavailable BAILEY MENDEZ Attending Unavailable ROGELIO, JUWAN Primary Care Unavailable ROGELIO, JUWAN Referring Unavailable ROGELIO, JUWAN Referring Unavailable ROGELIO, JUWAN Primary Care Unavailable ROGELIO, JUWAN Primary Care Unavailable AVTAR NUNN Attending Unavaila ble ROGELIO, JUWAN Primary Care Unavailable ROGELIO, JUWAN Referring Unavailable ROGELIO, JUWAN Referring Unavailable ROGELIO, JUWAN Primary Care Unavailable ROGELIO, JUWAN Referring Unavailable ROGELIO, JUWAN Primary Care Unavailable ROGELIO, JUWAN Referring Unavailable ROGELIO, JUWAN Primary Care Unavailable ROGELIO, JUWAN Primary Care Unavailable ROGELIO, JUWAN Referring Unavailable ROGELIO, JUWAN Attending Unavailable ROGELIO, JUWAN Primary Care Unavailable ROGELIO, JUWAN Attending Unavailable ROGELIO, JUWAN Primary Care Unavailable ROGELIO, JUWAN Referring Unavailable ROGELIO, JUWAN Primary Care Unavailable ROGELIO, JUWAN Referring Unavailable ROGELIO, JUWAN Primary Care Unavailable Medications Current Medications Medication Drug Class(es) Dates Sig (Normalized) Sig (Original) acetaminophen 500 mg oral tablet (1 source) Start: 07-29-2021 End: 08-05-2021 take 1 tablet by mouth every six hours as needed acetaminophen (TYLENOL EXTRA STRENGTH) 500 mg tablet Take 1 tablet by mouth every 6 hours as needed for pain for up to 7 days. 0 07/29/2021 08/05/2021 Active Completed/Discontinued Medications Medication Drug Class(es) Dates Sig (Normalized) Sig (Original) acetaminophen 300 mg / butalbital 50 mg / caffeine 40 mg oral capsule (10 sources) Barbiturate, Central Nervous System Stimulant, Methylxanthine Start: 02-02-2021 End: 08-19-2021 take 1 capsule by mouth every four hours as needed acetaminophen 300 mg-caffeine 40 mg-butalbital 50 mg (FIORICET) per capsule Indications: Migraine without aura, intractable, without status migrainosus Take 1 capsule by mouth every 4 hours as needed. 30 capsule 1 02/02/2021 08/19/2021 Discontinued Problems Active Problems Problem Classification Problem Date Documented Date Episodic/Chronic Asthma (20 sources) Uncomplicated asthma; Translations: [Unspecified asthma, uncomplicated] Onset: 01-29-2008 Chronic Chronic obstructive pulmonary disease and bronchiectasis (2 sources) Asthma-chronic obstructive pulmonary disease overlap syndrome; Translations: [Chronic obstructive pulmonary disease, unspecified] Onset: 09-17-2014 09-17-2014 Chronic Complications of surgical procedures or medical care (1 source) Postprocedural hypothyroidism; Translations: [S/P complete thyroidectomy] Onset: 08-21-2022 Chronic Diseases of white blood cells (20 sources) Leukocytosis; Translations: [Elevated white blood cell count, unspecified] Onset: 07-15-2021 Chronic Headache; including migraine (20 sources) Refractory migraine; Translations: [Migraine, unspecified, intractable, without status migrainosus] Onset: 01-29-2008 Resolved: 07-23-2017 Chronic Nutritional deficiencies (2 sources) Vitamin D deficiency; Translations: [Vitamin D deficiency, unspecified] Onset: 08-17-2022 Chronic Other acquired deformities (8 sources) Scoliosis deformity of spine; Translations: [Scoliosis, unspecified] Onset: 02-05-2015 Chronic Other connective tissue disease (1 source) Muscle pain; Translations: [Myalgia, unspecified site] Episodic Other liver diseases (2 sources) Liver cyst; Translations: [Other specified diseases of liver] Onset: 07-23-2017 07-23-2017 Chronic Other lower respiratory disease (2 sources) Cough; Translations: [Acute cough] Episodic Other nervous system disorders (20 sources) Chronic pain syndrome; Translations: [Chronic pain syndrome] Onset: 06-16-2015 06-16-2015 Chronic Other nervous system disorders (1 source) Other chronic pain; Translations: [Chronic bilateral low back pain without sciatica] Onset: 01-19-2022 Chronic Other nervous system disorders (1 source) Chronic pain syndrome; Translations: [Chronic pain syndrome] Onset: 06-16-2015 Chronic Other nervous system disorders (2 sources) Numbness of hand; Translations: [Anesthesia of skin] Episodic Other nervous system disorders (1 source) Impairment of balance; Translations: [Other abnormalities of gait and mobility] Episodic Other nervous system disorders (1 source) Lack of energy; Translations: [Other symptoms and signs involving cognitive functions and awareness] Episodic Other non-traumatic joint disorders (1 source) Joint pain; Translations: [Pain in unspecified joint] Episodic Other screening for suspected conditions (not mental disorders or infectious disease) (20 sources) Other specified abnormal findings of blood chemistry; Translations: [Other abnormal blood chemistry] Onset: 04-20-2021 04-20-2021 Episodic Residual codes; unclassified (2 sources) Symptom of neck; Translations: [Other general symptoms and signs] Episodic Residual codes; unclassified (4 sources) Tobacco use and exposure - finding; Translations: [Tobacco use] Onset: 07-09-2017 07-09-2017 Episodic Residual codes; unclassified (2 sources) Low motivation; Translations: [Other specified personal risk factors, not elsewhere classified] Episodic Spondylosis; intervertebral disc disorders; other back problems (20 sources) Degeneration of lumbar intervertebral disc; Translations: [Other intervertebral disc degeneration, lumbar region] Onset: 01-19-2022 Chronic Spondylosis; intervertebral disc disorders; other back problems (15 sources) Acute back pain with sciatica; Translations: [Lumbago with sciatica, right side] Onset: 02-05-2015 Episodic Substance-related disorders (20 sources) Smoker; Translations: [Nicotine dependence, unspecified, uncomplicated] Onset: 07-15-2021 Chronic Thyroid disorders (20 sources) Multinodular goiter; Translations: [Nontoxic multinodular goiter] Onset: 04-20-2021 Chronic Unclassified (1 source) Chronic bilateral low back pain without sciatica; Translations: [Chronic bilateral low back pain without sciatica] Onset: 01-19-2022 Unclassified (1 source) New Patient Evaluation Onset: 11-28-2021 Unclassified (1 source) Acute cough; Translations: [Acute cough] Onset: 05-26-2022 Past or Other Problems Problem Classification Problem Date Documented Da te Episodic/Chronic Abdominal pain (18 sources) Epigastric pain; Translations: [Epigastric pain] Onset: 09-12-2022 Episodic Allergic reactions (1 source) Urticaria, unspecified; Translations: [Urticaria, unspecified] Onset: 11-08-2016 Episodic Malaise and fatigue (9 sources) Fatigue; Translations: [Other fatigue] Onset: 07-09-2017 Resolved: 07-23-2017 07-23-2017 Episodic Nausea and vomiting (18 sources) Nausea; Translations: [Nausea] Onset: 09-12-2022 Episodic Other connective tissue disease (1 source) Myalgia, unspecified site; Translations: [Myalgia] Onset: 04-28-2022 Episodic Other gastrointestinal disorders (18 sources) Abdominal bloating; Translations: [Abdominal distension (gaseous)] Onset: 10-05-2022 Episodic Other gastrointestinal disorders (17 sources) Heartburn; Translations: [Heartburn] Onset: 10-05-2022 Episodic Other gastrointestinal disorders (2 sources) Abdominal distension (gaseous); Translations: [Abdominal bloating] Onset: 09-12-2022 Episodic Other gastrointestinal disorders (1 source) Heartburn; Translations: [Heartburn] Onset: 09-12-2022 Episodic Other inflammatory condition of skin (2 sources) Itching of skin; Translations: [Pruritus, unspecified] Onset: 07-23-2017 07-23-2017 Episodic Other injuries and conditions due to external causes (1 source) Allergy, unspecified, subsequent encounter; Translations: [Allergy, unspecified, subsequent encounter] Onset: 11-11-2016 Episodic Other nervous system disorders (1 source) Other symptoms and signs involving cognitive functions and awareness; Translations: [Sluggishness] Onset: 04-28-2022 Episodic Other non-traumatic joint disorders (2 sources) Shoulder pain; Translations: [Pain in right shoulder] Onset: 02-05-2015 02-05-2015 Episodic Other non-traumatic joint disorders (3 sources) Pain in left knee; Translations: [Pain in joint, lower leg] Onset: 05-26-2022 Episodic Other non-traumatic joint disorders (1 source) Pain in unspecified joint; Translations: [Arthralgia, unspecified joint] Onset: 04-28-2022 Episodic Other skin disorders (1 source) Rash and other nonspecific skin eruption; Translations: [Rash and other nonspecific skin eruption] Onset: 11-08-2016 Episodic Other skin disorders (2 sources) Skin lesion; Translations: [Disorder of the skin and subcutaneous tissue, unspecified] Onset: 07-23-2017 07-23-2017 Episodic Residual codes; unclassified (20 sources) History of operative procedure on lumbar spinal structure; Translations: [Other specified postprocedural states] Onset: 09-04-2016 Episodic Residual codes; unclassified (20 sources) History of lumbar discectomy; Translations: [Other specified postprocedural states] Onset: 09-04-2016 Episodic Residual codes; unclassified (2 sources) Patient encounter status; Translations: [Presence of dental prosthetic device (complete) (partial)] Onset: 09-17-2014 09-17-2014 Episodic Residual codes; unclassified (2 sources) Harmful pattern of use of nicotine; Translations: [Tobacco use] Onset: 02-10-2015 02-10-2015 Episodic Residual codes; unclassified (2 sources) Peripheral edema; Translations: [Edema, unspecified] Onset: 07-09-2017 07-09-2017 Episodic Residual codes; unclassified (2 sources) Insomnia; Translations: [Insomnia, unspecified] Onset: 07-23-2017 07-23-2017 Episodic Residual codes; unclassified (1 source) Other specified personal risk factors, not elsewhere classified; Translations: [Lack of motivation] Onset: 08-17-2022 Episodic Screening and history of mental health and substance abuse codes (1 source) Personal history of nicotine dependence; Translations: [Hx of smoking] Onset: 05-26-2022 Episodic Results Test Name Value Interpretation Reference Range Facil ity Vital Signs Date Time Vital Sign Value Performing Clinician Etienne ponce 10-05-2022 12:06-0400 Diastolic blood pressure 70 mm[Hg] Warren Melgoza MD Work Phone: [facility] 10-05-2022 12:06-0400 Heart rate 68 /min Warren Melgoza MD Work Phone: [facility] 10-05-2022 12:06-0400 Respiratory rate 16 /min Warren Melgoza MD Work Phone: [facility] 10-05-2022 12:06-0400 SaO2% (BldA) [Mass fraction] 97 % Warren Melgoza MD Work Phone: [facility] 10-05-2022 12:06-0400 Systolic blood pressure 123 mm[Hg] Warren Melgoza MD Work Phone: [facility] 10-05-2022 10:26-0400 Body temperature 97 [degF] Warren Melgoza MD Work Phone: [facility] 09-12-2022 16:27-0400 Body height 160 cm Warren Melgoza MD Work Phone: [facility] 09-12-2022 16:27-0400 Body temperature 97.81 [degF] Warren Melgoza MD Work Phone: [facility] 09-12-2022 16:27-0400 Body weight 76.2 kg Warren Melgoza MD Work Phone: [facility] 09-12-2022 16:27-0400 Diastolic blood pressure 70 mm[Hg] Warren Melgoza MD Work Phone: [facility] 09-12-2022 16:27-0400 Heart rate 85 /min Warren Melgoza MD Work Phone: [facility] 09-12-2022 16:27-0400 SaO2% (BldA) [Mass fraction] 99 % Wraren Melgoza MD Work Phone: [facility] 09-12-2022 16:27-0400 Systolic blood pressure 118 mm[Hg] Warren Melgoza MD Work Phone: [facility] 08-16-2022 17:29-0400 Body weight 75.93 kg Juwan Rogelio EDUCATION DEPARTMENT CHAIR.HUMAN RESOURCES COMPLIANCE MANAGER Work Phone: [facility] 08-16-2022 17:29-0400 Diastolic blood pressure 80 mm[Hg] Juwan Rogelio EDUCATION DEPARTMENT CHAIR.HUMAN RESOURCES COMPLIANCE MANAGER Work Phone: [facility] 08-16-2022 17:29-0400 Heart rate 68 /min Juawn Rogelio EDUCATION DEPARTMENT CHAIR.HUMAN RESOURCES COMPLIANCE MANAGER Work Phone: [facility] 08-16-2022 17:29-0400 Respiratory rate 16 /min Juwan Rogelio EDUCATION DEPARTMENT CHAIR.HUMAN RESOURCES COMPLIANCE MANAGER Work Phone: [facility] 08-16-2022 17:29-0400 SaO2% (BldA) [Mass fraction] 98 % Juwan Rogelio EDUCATION DEPARTMENT CHAIR.HUMAN RESOURCES COMPLIANCE MANAGER Work Phone: [facility] 08-16-2022 17:29-0400 Systolic blood pressure 116 mm[Hg] Juwan Rogelio EDUCATION DEPARTMENT CHAIR.HUMAN RESOURCES COMPLIANCE MANAGER Work Phone: [facility] 05-26-2022 09:28-0500 Body weight 76.02 kg Juwan Rogelio EDUCATION DEPARTMENT CHAIR.HUMAN RESOURCES COMPLIANCE MANAGER Work Phone: [facility] 05-26-2022 09:28-0500 Diastolic blood pressure 72 mm[Hg] Juwan Rogelio EDUCATION DEPARTMENT CHAIR.HUMAN RESOURCES COMPLIANCE MANAGER Work Phone: [facility] 05-26-2022 09:28-0500 Heart rate 74 /min Juwan Rogelio EDUCATION DEPARTMENT CHAIR.HUMAN RESOURCES COMPLIANCE MANAGER Work Phone: [facility] 05-26-2022 09:28-0500 SaO2% (BldA) [Mass fraction] 96 % Juwan Rogelio EDUCATION DEPARTMENT CHAIR.HUMAN RESOURCES COMPLIANCE MANAGER Work Phone: [facility] 05-26-2022 09:28-0500 Systolic blood pressure 100 mm[Hg] Juwan Rogelio EDUCATION DEPARTMENT CHAIR.HUMAN RESOURCES COMPLIANCE MANAGER Work Phone: [facility] 01-19-2022 09:56-0400 Heart rate 61 /min Eliel Viktor EDUCATION DEPARTMENT CHAIR.HUMAN RESOURCES COMPLIANCE MANAGER Work Phone: [facility] 01-19-2022 09:56-0400 Respiratory rate 16 /min Eliel Udell EDUCATION DEPARTMENT CHAIR.HUMAN RESOURCES COMPLIANCE MANAGER Work Phone: [facility] 01-19-2022 09:56-0400 SaO2% (BldA) [Mass fraction] 96 % Eliel Udell EDUCATION DEPARTMENT CHAIR.HUMAN RESOURCES COMPLIANCE MANAGER Work Phone: [facility] 11-28-2021 08:49-0400 Body height 160 cm Francois Desouza MD, PhD Work Phone: [facility] 11-28-2021 08:49-0400 Body weight 74.3 kg Francois Desouza MD, PhD Work Phone: [facility] 11-28-2021 08:49-0400 Diastolic blood pressure 70 mm[Hg] Francois Desouza MD, PhD Work Phone: [facility] 11-28-2021 08:49-0400 Heart rate 71 /min Francois Desouza MD, PhD Work Phone: [facility] 11-28-2021 08:49-0400 Respiratory rate 16 /min Francois Desouza MD, PhD Work Phone: [facility] 11-28-2021 08:49-0400 SaO2% (BldA) [Mass fraction] 97 % Francois Desouza MD, PhD Work Phone: [facility] 11-28-2021 08:49-0400 Systolic blood pressure 115 mm[Hg] Francois Desouza MD, PhD Work Phone: [facility] 11-23-2021 10:37-0400 Body weight 74.66 kg Juwan Rogelio EDUCATION DEPARTMENT CHAIR.HUMAN RESOURCES COMPLIANCE MANAGER Work Phone: [facility] 11-23-2021 10:37-0400 Diastolic blood pressure 70 mm[Hg] Juwan Rogelio EDUCATION DEPARTMENT CHAIR.HUMAN RESOURCES COMPLIANCE MANAGER Work Phone: [facility] 11-23-2021 10:37-0400 Heart rate 87 /min Juwan Rogelio EDUCATION DEPARTMENT CHAIR.HUMAN RESOURCES COMPLIANCE MANAGER Work Phone: [facility] 11-23-2021 10:37-0400 Respiratory rate 16 /min Juwan Rogelio EDUCATION DEPARTMENT CHAIR.HUMAN RESOURCES COMPLIANCE MANAGER Work Phone: [facility] 11-23-2021 10:37-0400 SaO2% (BldA) [Mass fraction] 98 % Juwan Rogelio EDUCATION DEPARTMENT CHAIR.HUMAN RESOURCES COMPLIANCE MANAGER Work Phone: [facility] 11-23-2021 10:37-0400 Systolic blood pressure 108 mm[Hg] Juwan Rogelio EDUCATION DEPARTMENT CHAIR.HUMAN RESOURCES COMPLIANCE MANAGER Work Phone: [facility] 08-19-2021 14:22-0400 Body temperature 98.2 [degF] Juwan Rogelio EDUCATION DEPARTMENT CHAIR.HUMAN RESOURCES COMPLIANCE MANAGER Work Phone: [facility] 08-19-2021 14:22-0400 Body weight 73.94 kg Juwan Rogelio EDUCATION DEPARTMENT CHAIR.HUMAN RESOURCES COMPLIANCE MANAGER Work Phone: [facility] 08-19-2021 14:22-0400 Diastolic blood pressure 60 mm[Hg] Juwan Rogelio EDUCATION DEPARTMENT CHAIR.HUMAN RESOURCES COMPLIANCE MANAGER Work Phone: [facility] 08-19-2021 14:22-0400 Heart rate 80 /min Juwan Rogelio EDUCATION DEPARTMENT CHAIR.HUMAN RESOURCES COMPLIANCE MANAGER Work Phone: [facility] 08-19-2021 14:22-0400 SaO2% (BldA) [Mass fraction] 96 % Juwan Rogelio EDUCATION DEPARTMENT CHAIR.HUMAN RESOURCES COMPLIANCE MANAGER Work Phone: [facility] 08-19-2021 14:22-0400 Systolic blood pressure 102 mm[Hg] Juwan Rogelio EDUCATION DEPARTMENT CHAIR.HUMAN RESOURCES COMPLIANCE MANAGER Work Phone: [facility] 07-15-2021 15:19-0400 Body height 160 cm Pacc 1 Work Phone: [facility] 07-15-2021 15:19-0400 Body temperature 98.29 [degF] Pacc 1 Work Phone: [facility] 07-15-2021 15:19-0400 Body weight 74.39 kg Pacc 1 Work Phone: [facility] 07-15-2021 15:19-0400 Diastolic blood pressure 78 mm[Hg] Pacc 1 Work Phone: [facility] 07-15-2021 15:19-0400 Heart rate 93 /min Pacc 1 Work Phone: [facility] 07-15-2021 15:19-0400 Respiratory rate 18 /min Pacc 1 Work Phone: [facility] 07-15-2021 15:19-0400 SaO2% (BldA) [Mass fraction] 98 % Pacc 1 Work Phone: [facility] 07-15-2021 15:19-0400 Systolic blood pressure 116 mm[Hg] Pac 1 Work Phone: [facility] Encounters Encounter Date Encounter Type Care Provider Facility Start: 04-17-2023 End: 04-17-2023 ambulatory [facility] Facility:[facility] Start: 04-10-2023 End: 04-10-2023 ambulatory [facility] Facility:[facility] Start: 03-28-2023 ambulatory [facility] an EDUCATION DEPARTMENT CHAIR.HUMAN RESOURCES COMPLIANCE MANAGER Work Phone: Internal Medicine [facility] Start: 01-30-2023 End: 01-31-2023 ambulatory [facility] Facility:[facility] Start: 01-19-2023 Telephone encounter Juwan Castro EDUCATION DEPARTMENT CHAIR.HUMAN RESOURCES COMPLIANCE MANAGER Work Phone: [facility] Medicine [place] Procedures Date Procedure Procedure Detail Performing Clinician Start: 10-05-2022 Level iv surg pathology gross&microscopic exam Warren Melgoza MD Work Phone: Start: 10-05-2022 Esophagogastroduodenoscopy transoral diagnostic Warren Melgoza MD Work Phone: Start: 08-24-2022 Hepatobil syst imag inc gb w/pharma intervenj Juwan Mercado EDUCATION DEPARTMENT CHAIR.HUMAN RESOURCES COMPLIANCE MANAGER Work Phone: Start: 08-21-2022 History of thyroidectomy S/P complete thyroidectomy Juwan Mercado EDUCATION DEPARTMENT CHAIR.HUMAN RESOURCES COMPLIANCE MANAGER Work Phone: Start: 08-17-2022 Us abdominal real time w/image limited Juwan Mercado EDUCATION DEPARTMENT CHAIR.HUMAN RESOURCES COMPLIANCE MANAGER Work Phone: Start: 05-26-2022 Radiologic exam chest 2 views Juwan Castro EDUCATION DEPARTMENT CHAIR.HUMAN RESOURCES COMPLIANCE MANAGER Work Phone: Start: 05-26-2022 Radiologic exam knee complete 4/more views Juwan Mercado EDUCATION DEPARTMENT CHAIR.HUMAN RESOURCES COMPLIANCE MANAGER Work Phone: Start: 02-21-2022 End: 02-21-2022 Mammography Bulk Order Provider Start: 01-12-2022 Radex spine lumbosacral minimum 4 views Juwan Mercado APRN.HUMAN RESOURCES COMPLIANCE MANAGER Work Phone: Start: 12-16-2021 Adult depression screening assessment Juwan Mercado APRN.[facility] Work Phone: Start: 11-17-2021 Mri spinal canal lumbar w/o contrast material Juwan Mercado APRN.HUMAN RESOURCES COMPLIANCE MANAGER Work Phone: Start: 07-15-2021 Radiologic exam chest 2 views Jennifer Montelongo MD Work Phone: Start: 03-17-2021 Lipid 1996 panel - Serum or Plasma Janett Mercado APRN.HUMAN RESOURCES COMPLIANCE MANAGER Work Phone: Start: 03-08-2021 Mammography Pacc 1 Work Phone: Start: 02-01-2021 Adult depression screening assessment Pac 1 Work Phone: Start: 05-20-2014 Microscopic observation [Identifier] in Cervix by Cyto stain History of thyroidectomy S/P com plete thyroidectomy Jennifer Montelongo MD Work Phone: History of thyroidectomy S/P com plete thyroidectomy Juwan Rogelio EDUCATION DEPARTMENT CHAIR.HUMAN RESOURCES COMPLIANCE MANAGER Work Phone: History of thyroidectomy S/P com plete thyroidectomy Juwan Rogelio EDUCATION DEPARTMENT CHAIR.HUMAN RESOURCES COMPLIANCE MANAGER Work Phone: History of thyroidectomy S/P com plete thyroidectomy Juwan Rogelio EDUCATION DEPARTMENT CHAIR.HUMAN RESOURCES COMPLIANCE MANAGER Work Phone: History of thyroidectomy S/P com plete thyroidectomy Juwan Rogelio EDUCATION DEPARTMENT CHAIR.HUMAN RESOURCES COMPLIANCE MANAGER Work Phone: History of thyroidectomy S/P com plete thyroidectomy Juwan Rogelio EDUCATION DEPARTMENT CHAIR.HUMAN RESOURCES COMPLIANCE MANAGER Work Phone: History of thyroidectomy S/P com plete thyroidectomy Juwan Rogelio EDUCATION DEPARTMENT CHAIR.[facility] Work Phone: History of thyroidectomy S/P com plete thyroidectomy Juwan Rogelio EDUCATION DEPARTMENT CHAIR.HUMAN RESOURCES COMPLIANCE MANAGER Work Phone: History of thyroidectomy S/P com plete thyroidectomy Juwan Mercado EDUCATION DEPARTMENT CHAIR.HUMAN RESOURCES COMPLIANCE MANAGER Work Phone: Plan of Treatment Date Care Activity Detail Author Start: 03-17-2026 Lipid 1996 panel - Serum or Plasma Lipid Screening [facility] Start: 03-17-2026 Lipid panel Lipid Screening [facility] Start: 03-17-2026 LIPID SCREEN LIPID SCREEN [facility] Start: 08-17-2025 DIABETES SCREEN DIABETES SCREEN [facility] Start: 08-17-2025 Diabetes Screening Diabetes Screening [facility] Start: 07-07-2025 Shingles (RZV) Vaccine (1 of 2) Shingles (RZV) Vaccine (1 of 2) [facility] Start: 04-28-2025 DIABETES SCREEN DIABETES SCREEN [facility] Start: 09-17-2024 Tetanus vaccination Tetanus (Td or Tdap) Booster [facility] Start: 09-17-2024 Urine microalbumin profile DTaP,Tdap,Td Vaccine (2 - Td or Tdap) [facility] Start: 06-16-2024 DIABETES SCREEN DIABETES SCREEN [facility] Start: 08-17-2023 ANNUAL PCP TEAM CHRONIC DISEASE VISIT ANNUAL PCP TEAM CHRONIC DISEASE VISIT [facility] Start: 05-26-2023 ANNUAL PCP TEAM CHRONIC DISEASE VISIT ANNUAL PCP TEAM CHRONIC DISEASE VISIT [facility] Start: 02-21-2023 Mammography [facility] Start: 02-21-2023 Screening for malignant neoplasm of breast Mammogram Screening [facility] Start: 12-16-2022 Adult depression screening assessment DEPRESSION SCREENING [facility] Start: 12-15-2022 Influenza vaccination [facility] Start: 12-13-2022 End: 02-12-2023 Thyrotropin [Units/volume] in Serum or Plasma TSH BLD Lab Routine S/P complete thyroidectomy Expected: 12/13/2022, Expires: 02/12/2023 [facility] Work Phone: Immunizations Immunization Date Immunization Notes Care Provider Tavares calderon 02-10-2015 influenza, injectabl e, quadrivalent, preservative free [facility] 02-10-2015 influenza virus vacc ine, unspecified formulation [facility] 09-17-2014 tetanus toxoid, redu carina diphtheria toxoid, and acellular pertussis vaccine, adsorbed [facility] Work Phone: Payers Date Payer Category Payer Unknown [id number] 2021 Unknown MMO MMO [employer] [id number] 2021-Present [phone] [address] [place] [address] PPO [id number] 2021 Unknown [id number] 2021 Unknown [id number] 2015 [facility] MEDICAID HMO [id number] 2015-Present [phone] [address] [place] [address] Medicaid HMO [id number] Social History Date Type Detail Facility Start: 11-19-2013 End: 11-23-2021 Tobacco smoking status NHIS Smokes tobacco daily [facility] Work Phone: End: 03-13-2022 History of tobacco use Cigarette Smoker [facility] Work Phone: Start: 11-19-2013 End: 08-16-2022 Cigarettes smoked current (pack per day) - Reported 0.5 [facility] Start: 11-19-2013 End: 09-12-2022 Tobacco use and exposure Smokeless tobacco non-user [facility] Work Phone: Start: 07-15-2021 End: 05-26-2022 Alcohol intake Current drinker of alcohol (finding) [facility] Start: 02-01-2021 End: 05-20-2022 History SDOH Alcohol Frequency 3 [facility] Start: 02-01-2021 End: 05-20-2022 History SDOH Alcohol Std Drinks 1 [facility] Start: 01-28-2021 History SDOH Alcohol Comment occasionally [facility] Start: 02-01-2021 End: 05-20-2022 History SDOH Social Connections Phone 5 [facility] Start: 02-01-2021 End: 05-20-2022 History SDOH Social Connections Membership 2 [facility] Start: 02-01-2021 History SDOH Financial 4 [facility] Start: 02-01-2021 Education 12 [facility] Start: 1975 Sex Assigned At Not on file [facility] Start: 07-05-2021 End: 02-15-2022 Exposure to SARS-CoV-2 (event) Not sure [facility] Start: 07-23-2017 Alcohol intake Current non-drinker of alcohol (finding) [facility] Start: 07-09-2017 Tobacco Comment Smoker since 1992 ; 10 per day 02/10/15 [facility] Start: 05-20-2022 History SDOH Alcohol Std Drinks 0 [facility] Start: 09-12-2022 Tobacco smoking status NHIS Ex-smoker [facility] End: 03-13-2022 History of tobacco use Current smoker [facility] Start: 10-05-2022 End: 10-18-2022 Alcohol intake Ex-drinker (finding) [facility] Start: 05-20-2022 End: 08-16-2022 Social connection and isolation panel [facility] Do you belong to any clubs or organizations such as jain groups, unions, fraternal or athletic groups, or school groups? No [facility] Are you now , , , , never or living with a partner? [facility] How often to you hav e a drink containing alcohol? Never [facility] How many standard dr inks containing alcohol do you have on a typical day? Patient does not drink [facility] (I/We) worried sony er (my/our) food would run out before (I/we) got money to buy more. Never true [facility] How often to you hav e a drink containing alcohol? 2-4 times a month [facility] How many standard dr inks containing alcohol do you have on a typical day? 1 or 2 [facility] How hard is it for y ou to pay for the very basics like food, housing, medical care, and heating Not very hard [facility] Do you feel stress - tense, restless, nervous, or anxious, or unable to sleep at night because your mind is troubled all the time - these days [OSQ] To some extent [facility] Clinical Notes 07-15-2021 to 04-17-2023 Telephone Encounter - Juwan Mercado APRN.HUMAN RESOURCES COMPLIANCE MANAGER - 01/22/2023 10:46 AM EDTTelephone Encounter - Genna Potter RN - 01/19/2023 2:50 PM Bailey Chaparro APRN.HUMAN RESOURCES COMPLIANCE MANAGER - 12/25/2022 8:20 AM EDT Note Date & Type Note Facility 04-17-2023 Note HNO ID: [id number] Author: Reinaldo Araujo Mammo Tech Service: ? Author Type: Technologist Type: Progress Notes Filed: 04/17/2023 11:12 AM Note Text: Radiology Service Progress Note PATIENT NAME: Lisandro De La Rosa DATE OF SERVICE: April 17, 2023 TIME: 11:12 AM PATIENT IDENTITY VERIFICATION COMPLETED USING TWO (2) IDENTIFIERS: Name and Date of confirmed by patient verbally. FALL SCREENING: Has the patient had 2 falls in the last year or 1 fall with injury or currently using an Ambulatory Assistive Device (Walker, Cane, Wheelchair, Crutches, etc.)? No PATIENT GENDER DATA: Female. status: : No status: NO. PATIENT RELEVANT IMPLANT DATA REVIEWED: Not Applicable RADIOLOGY DEPARTMENT: Mammography PERIPHERAL IV DATA: Not applicable SIGNED BY: Martin Clemente April 17, 2023 11:12 AM [facility] 04-10-2023 Note HNO ID: [id number] Author: Avtar Nunn MD Service: ? Author Type: Physician Type: Progress Notes Filed: 04/10/2023 5:14 PM Note Text: [facility] Initial Clinic Visit Note Referred by: Self Subjective: Lisandro De La Rosa is a 47 year old female here to establish care for postsurgical hypothyroidism. is accompanying her today Patient reports diagnosis of Grave's disease in 2020 in [place], although she had symptoms and abnormal labs much before that while in [place] She had Thyroid uptake and scan showing heterogenous uptake. She also reports having a biopsy done by Dr. Melgoza, likely in cold nodules with benign results Current treatment: 125 mcg daily four days a week, 3 days a week is 1/2 of that. Started cytomel 5 mg daily in August or September 2022, 2 pills a day now, she reports after her thyroid labs were noted to be low and her PCP referred to Endocrinology as the labs do not correct despite changing the doses, while I see the TSH is low. Initial symptoms before thyroidectomy - weight gain, tiredness, sleep disturbances, tremors, palpitations, chest pains General symptoms: Fatigue: zero Weight change: weight gain noticed at the time when her appetite went up Appetite change: no Menstrual irregularities: hysterectomy done at 40, ovaries intcat, labs show no menopause poer patient, this was few years ago when she started complaining of hot flashes Change in bowel habits: no Temperature intolerance: sweating at night Reports Chest pains, insomnia, Dizziness, no diarrhea, no N/V REVIEW OF SYSTEMS: 10 point ROS was reviewed and negative unless indicated in the HPI ALLERGIES: ALLERGIES No Known Allergies MEDICATIONS: Current Outpatient Medications on File Prior to Visit Medication Sig oxyCODONE-acetaminophen (PERCOCET) 5-325 mg tablet Take 1 tablet by mouth as needed. liothyronine (CYTOMEL) 5 mcg tablet Take 1 tablet by mouth two times a day. Mid afternoon between meals. levothyroxine (SYNTHROID) 125 mcg tablet Take 1 tablet by mouth 4 days per week. Take 1/2 tablet by mouth 3 days per week. albuterol HFA (VENTOLIN HFA) 90 mcg/actuation inhaler Inhale 2 Puffs as instructed every 4 hours as needed for wheezing/shortness of breath. jmxuniftix-yktigyrg-egzocnruza (BREZTRI) 160-9-4.8 mcg/actuation HFA aerosol inhaler Inhale 2 Puffs as instructed twice daily. (Patient not taking: Reported on 04/10/2023) No current facility-administered medications on file prior to visit. PAST MEDICAL HISTORY: PAST MEDICAL HISTORY Diagnosis Date Asthma Bloating Constipation Heart burn Migraines Scoliosis Thyroid nodule 02/2021 PAST SURGICAL HISTORY: PAST SURGICAL HISTORY Procedure Laterality Date BACK SURGERY HX 07/2016 L5-S1 laminectomy with Dr. Bermudez BREAST SURGERY HX augmentation SECTION HX SECTION HX EGD W/O BRSH SPEC VARICIES INJ 10/05/2022 HYSTERECTOMY HX LAVH PAST SURGICAL HISTORY OF breast augmentation PAST SURGICAL HISTORY OF cyst removed from RT. wrist REMOVAL OF THYROID 07/29/2021 Total FAMILY HISTORY: FAMILY HISTORY Problem Relation Age of Onset other (other) Mother breast issues Cervical Cancer Sister other (low platelets) Sister Systemic Lupus Erythematosus Sister Breast Cancer Other both sides of family SOCIAL HISTORY: Social History Tobacco Use Smoking status: Former Packs/day: 0.50 Years: 30.00 Additional pack years: 0.00 Total pack years: 15.00 Types: Cigarettes Quit date: 03/13/2022 Years since quittin.0 Smokeless tobacco: Never Vaping Use Vaping Use: current everyday user Substances: Nicotine, Flavoring Substance Use Topics Alcohol use: Not Currently Comment: occasionally Drug use: No PHYSICAL EXAM: BP 110/68 (BP Site: Right Arm, BP Position: Sitting, BP Cuff Size: Regular Adult) Pulse 67 Resp 18 Ht 160 cm (5' 3 ) Wt 76.5 kg (168 lb 9.6 oz) LMP (LMP Unknown) SpO2 98% BMI 29.87 kg/m? Last 3 Encounter Wt Readings: Date: Wt: 04/10/2023 76.5 kg (168 lb 9.6 oz) 10/18/2022 76.2 kg (168 lb) 09/12/2022 76.2 kg (168 lb) General: Alert and oriented x3, no acute distress Eyes: Anicteric sclera. Pupils are equally round. Extraocular movements are intact. Neck supple, no cervical lymphadenopathy Thyroid: surgically removed thyroid, well healed scar noted, normal texture, no palpable nodules Lungs: Breathing unlabored, clear to auscultation. No wheezing, rhonchi, rales Heart regular rate and rhythm, no murmer Musculoskeletal: Muscular strength intact, No joint swelling, deformity, or tenderness Neuro: Gait normal. Sensation grossly intact. No focal findings Abdomen:Normal abdominal sounds, non tender to palpation Extremities: without edema, no deformities Skin: no rashes/ erythema LAB: TSH Date Value Ref Range Status 01/30/2023 0.007 (L) 0.270 - 4.200 mIU/L Final Commen (more content not included)... [facility] 03-28-2023 Note Patient Outreach (IN TMMN) LISANDRO DE LA ROSA ([id number]) 1975 F Date Time Provider Department 03/28/23 ORGELIOJUWAN During your visit today, we recorded the following information about you: Allergies As of Date: 03/28/2023 (No Known Allergies) Date Reviewed: 10/18/2022 Reviewed by: Lucila Soto RN - Fully Assessed Visit Diagnosis:Encounter for screening mammogram for breast cancer [Z12.31] Order(s):[facility] SCREENING [[id number]] Order #: [id number] FUTURE Prescriptions as of 04/02/2023 - liothyronine (CYTOMEL) 5 mcg tablet Take 1 tablet by mouth two times a day. Mid afternoon between meals. - levothyroxine (SYNTHROID) 125 mcg tablet Take 1 tablet by mouth 4 days per week. Take 1/2 tablet by mouth 3 days per week. - albuterol HFA (VENTOLIN HFA) 90 mcg/actuation inhaler Inhale 2 Puffs as instructed every 4 hours as needed for wheezing/shortness of breath. - lqglyboxbl-ncrzjuvd-pucelrgduz (BREZTRI) 160-9-4.8 mcg/actuation HFA aerosol inhaler Inhale 2 Puffs as instructed twice daily. Problem List As Of Date 03/28/2023 Noted Resolved Chronic pain syndrome [G89.4] 06/16/2015 S/P lumbar discectomy [Z98.890] 09/04/2016 Multiple thyroid nodules [E04.2] 04/20/2021 Low serum thyroid stimulating hormone (TSH) [R7*04/20/2021 Asthma [J45.909] 01/29/2008 Migraines [G43.909] 01/29/2008 Leukocytosis [D72.829] 07/15/2021 Current smoker [F17.200] 07/15/2021 Lumbar spondylosis [M47.816] 02/15/2022 S/P complete thyroidectomy [E89.0] 08/21/2022 Bloating [R14.0] 10/05/2022 Epigastric pain [R10.13] 10/05/2022 Heartburn [R12] 10/05/2022 Nausea [R11.0] 10/05/2022 Encounter Status:Closed by MINERVA CHIU on 04/02/23 [facility] 01-22-2023 Miscellaneous Notes Noted, thank you. Juwan Mercado APRN.HUMAN RESOURCES COMPLIANCE MANAGER Patient calling with 2 items. Will send to PCP for update. Patient states her current pharmacy, [facility] in [place], does not have her Cytomel thyroid medication in stock. Pt agreeable to check with other pharmacies at this time to have prescription transferred. Will call back if has further issues with this. Pt states she is still not feeling well despite thyroid medication adjustments. She is not sure if she is not feeling well from something else or from thyroid issues. Pt states she will get her thyroid labs drawn that she was told to get by 02/05 to get an idea what her levels are and wait for PCP to advise based on those results. Genna Potter RN documented in this encounter [facility] 12-25-2022 Note HNO ID: [id number] Author: Bailey Mendez APRN.REYNA Service: ? Author Type: Nurse Practitioner Type: Progress Notes Filed: 12/25/2022 4:02 PM Note Text: SPINE SURGERY ESTABLISHED VIRTUAL VISIT This is a virtual visit using [employer] video visit. It required patient-provider interaction for the medical decision making as documented below. I have communicated my name and active licensure. The patient's identity and physical location were verified at the time of this visit. Either the patient or their legal maintenance representative has been informed of the risks and benefits of -- and alternatives to -- treatment through a remote evaluation and consents to proceed with the evaluation remotely. DATE OF SERVICE: 12/25/2022 DATE OF LAST VISIT: 11/06/2016 SUBJECTIVE: HPI:Lisandro De La Rosa is a 47 year old female presenting alone. 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 Previous left L4-L5 microdiscectomy by Dr. Bermudez (07/17/2016). Did well post-op with resolution of symptoms. C/o chronic low back pain that does not radiate into lower extremities. Denies any numbness/tingling or subjective weakness. Aggravated with activities, alleviated mildly with medication. Denies any loss in bowel/bladder control or balance instability. Conservative Management ---Pain Management--- -RFA- no relief -Injections x8- no relief -Percocet -Lyrica/Gabapentin- intolerant -Heat Therapy PAIN EVALUATION 12/20/2022 1402 Pain Level: 8 Pain Location: Back-Lower Description: Aching;Dull;Radiating;Stiffness; Tightness;Tingling Duration Amount of Time: 12 Duration Units: Hours Frequency: Continuous Intervention/Comfort measure: Medication Pain Radiation: Pain does not radiate Aggravating Factors: Flexion, Extension, Rotation, Standing, Walking Alleviating Factors: None Pain Ratio: 100 % back pain, 0 % leg pain AMBULATORY STATUS: Independent Community Distances ANTIPLATELET OR ANTICOAGULATION STATUS: No REVIEW OF SYSTEMS: GENERAL: No weight loss or malaise MUSCULOSKELETAL: Negative for joint pain, swelling or muscle pain NEURO: No history of headaches, syncope, paralysis, seizures or tremors MEDICATIONS: liothyronine (CYTOMEL) 5 mcg tablet Take 1 tablet by mouth twice daily. Mid afternoon between meals. levothyroxine (SYNTHROID) 125 mcg tablet Take 1 tablet by mouth 4 days per week. Take 1/2 tablet by mouth 3 days per week. albuterol HFA (VENTOLIN HFA) 90 mcg/actuation inhaler Inhale 2 Puffs as instructed every 4 hours as needed for wheezing/shortness of breath. eouhxcsxhe-djusspec-scdizrzhad (BREZTRI) 160-9-4.8 mcg/actuation HFA aerosol inhaler Inhale 2 Puffs as instructed twice daily. Patient Entered Questionnaires Spine Questions 12/16/2021 12/20/2022 Pain Location: Lower back Lower back Pain Duration: More than 5 years More than 5 years Pain over last 6 months: Every day or nearly every day in the past 6 months Every day or nearly every day in the past 6 months Symptoms from neck/cervical spine: Yes No Employment Status: Working now Working now Involved in [employer]/legal claim: No No Neck Questionnaires 12/16/2021 Benzel Modified USMAN Score 15 (A lower score indicates increased pain and issues.) PROMIS Score Percentiles Physical Health 12/16/2021 12/20/2022 Physical Function Percentile 4 3 Sleep Percentile 5 10 Fatigue Percentile 8 10 Pain Interference Percentile 1 1 PROMIS SOCIAL ROLE SCORE 12/16/2021 12/20/2022 Social Role Satisfaction Percentile 4 14 PROMIS Global Health Scale 08/09/2022 12/08/2022 12/08/2022 Physical Health Percentile 4 4 4 Mental Health Percentile 19* 26* 26* Percentiles provide an indication of how the patient's score ranks in relation to the general population. Higher percentile rankings indicate better function/quality of life. 50th percentile is the average of the general population and indicates half of respondents had a worse score. Depression Screening: PHQ-9 10/02/2022 12/08/2022 12/08/2022 Score 13 13 13 PHQ-9 Self-harm Question 10/02/2022 12/08/2022 12/08/2022 Thoughts that you would be better off , or of hurting yourself in some way 0 0 0 PHQ-9 Self-Harm (Item 9) response options: 0 Not at all 1 Several days 2 More than half the days 3 Nearly every day PHQ-9 Levels: 0-4 No to mild depression 5-9 Mild depression 10-14 Moderate depression 15-19 Moderately severe depression 20-27 Severe depression OBJECTIVE: PHYSICAL EXAM: There were no vitals taken for this visit. GENERAL APPEARANCE: Well nourished, well developed, and no apparent distress. NEURO PSYCH: Patient oriented to person, place, and time. Mood pleasant. Benign affect. Physical examination limited due to virtual visit. DATA REVIEW:Diagnostic tests reviewed for today's visit, films/specimens were personally reviewed by me: Outside records independently reviewed, no imaging available MRI Lumbar REPORT shows no significant spinal canal sten (more content not included)... [facility] 12-25-2022 History of Presen t illness Narrative Images from the original note were not included. SPINE SURGERY ESTABLISHED VIRTUAL VISIT This is a virtual visit using [employer] video visit. It required patient-provider interaction for the medical decision making as documented below. I have communicated my name and active licensure. The patient's identity and physical location were verified at the time of this visit. Either the patient or their legal maintenance representative has been informed of the risks and benefits of -- and alternatives to -- treatment through a remote evaluation and consents to proceed with the evaluation remotely. DATE OF SERVICE: 12/25/2022 DATE OF LAST VISIT: 11/06/2016 SUBJECTIVE: HPI:Lisandro De La Rosa is a 47 year old female presenting alone. 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 Previous left L4-L5 microdiscectomy by Dr. Bermudez (07/17/2016). Did well post-op with resolution of symptoms. C/o chronic low back pain that does not radiate into lower extremities. Denies any numbness/tingling or subjective weakness. Aggravated with activities, alleviated mildly with medication. Denies any loss in bowel/bladder control or balance instability. Conservative Management ---Pain Management--- -RFA- no relief -Injections x8- no relief -Percocet -Lyrica/Gabapentin- intolerant -Heat Therapy PAIN EVALUATION 12/20/2022 1402 Pain Level: 8 Pain Location: Back-Lower Description: Aching;Dull;Radiating;Stiffness; Tightness;Tingling Duration Amount of Time: 12 Duration Units: Hours Frequency: Continuous Intervention/Comfort measure: Medication Pain Radiation: Pain does not radiate Aggravating Factors: Flexion, Extension, Rotation, Standing, Walking Alleviating Factors: None Pain Ratio: 100 % back pain, 0 % leg pain AMBULATORY STATUS: Independent Community Distances ANTIPLATELET OR ANTICOAGULATION STATUS: No REVIEW OF SYSTEMS: GENERAL: No weight loss or malaise MUSCULOSKELETAL: Negative for joint pain, swelling or muscle pain NEURO: No history of headaches, syncope, paralysis, seizures or tremors MEDICATIONS: liothyronine (CYTOMEL) 5 mcg tablet Take 1 tablet by mouth twice daily. Mid afternoon between meals. levothyroxine (SYNTHROID) 125 mcg tablet Take 1 tablet by mouth 4 days per week. Take 1/2 tablet by mouth 3 days per week. albuterol HFA (VENTOLIN HFA) 90 mcg/actuation inhaler Inhale 2 Puffs as instructed every 4 hours as needed for wheezing/shortness of breath. ushbntvpjq-pyqgqynw-hrsvuctysq (BREZTRI) 160-9-4.8 mcg/actuation HFA aerosol inhaler Inhale 2 Puffs as instructed twice daily. Patient Entered Questionnaires Spine Questions 12/16/2021 12/20/2022 Pain Location: Lower back Lower back Pain Duration: More than 5 years More than 5 years Pain over last 6 months: Every day or nearly every day in the past 6 months Every day or nearly every day in the past 6 months Symptoms from neck/cervical spine: Yes No Employment Status: Working now Working now Involved in law suit/legal claim: No No Neck Questionnaires 12/16/2021 Benzel Modified USMAN Score 15 (A lower score indicates increased pain and issues.) PROMIS Score Percentiles Physical Health 12/16/2021 12/20/2022 Physical Function Percentile 4 3 Sleep Percentile 5 10 Fatigue Percentile 8 10 Pain Interference Percentile 1 1 PROMIS SOCIAL ROLE SCORE 12/16/2021 12/20/2022 Social Role Satisfaction Percentile 4 14 PROMIS Global Health Scale 08/09/2022 12/08/2022 12/08/2022 Physical Health Percentile 4 4 4 Mental Health Percentile 19* 26* 26* Percentiles provide an indication of how the patient's score ranks in relation to the general population. Higher percentile rankings indicate better function/quality of life. 50th percentile is the average of the general population and indicates half of respondents had a worse score. Depression Screening: PHQ-9 10/02/2022 12/08/2022 12/08/2022 Score 13 13 13 PHQ-9 Self-harm Question 10/02/2022 12/08/2022 12/08/2022 Thoughts that you would be better off , or of hurting yourself in some way 0 0 0 PHQ-9 Self-Harm (Item 9) response options: 0 Not at all 1 Several days 2 More than half the days 3 Nearly every day PHQ-9 Levels: 0-4 No to mild depression 5-9 Mild depression 10-14 Moderate depression 15-19 Moderately severe depression 20-27 Severe depression OBJECTIVE: PHYSICAL EXAM: There were no vitals taken for this visit. GENERAL APPEARANCE: Well nourished, well developed, and no apparent distress. NEURO PSYCH: Patient oriented to person, place, and time. Mood pleasant. Benign affect. Physical examination limited due to virtual visit. DATA REVIEW:Diagnostic tests reviewed for today's visit, films/specimens were personally reviewed by me: Outside records independently reviewed, no imaging available MRI Lumbar REPORT shows no significant spinal canal stenosis or nerve compression. ASSESSMENT/PLAN (M54.50, G89.29) Chronic bilateral low back pain without sciatica (primary encounter diagnosis) Lisandro is a pleasant 47 year old female who presents to the office via VV with a previous microdiscectomy and hx of AIS c/o low back pain that does not radiate. Has been receiving extensive treatment by local pain management provider with no significant relief. Patient is currently starting work up for SCS. However, wanted to obtain opinion from our office to ensure no spine surgery was necessary prior to. Discussed that per MRI Lumbar REPORT there appears to be no central canal stenosis or significant nerve compression. Surgery for back pain only with no radiculopathy would not be indicated at this time. Instructed patient to upload MRI Lumbar to office for review. At this time, in agreement that SCS may be a great option. Lisandro De La Rosa will continue with medical management of his/her condition. 1. No Orders Entered Today 2. Follow up: Following above Imaging Ordered: None The majority of the visit was spent counseling and/or coordinating care for the patient. The patient was counseled regarding low back pain. Total face to face time was 15 minutes. SIGNATURE: Bailey Mendez APRN.CNP PATIENT NAME: Lisandro De La Rosa DATE: December 25, 2022 TIME: 8:20 AM PAGER: documented in this encounter [facility] 12-13-2022 Miscellaneous Notes Please assist in scheduling. Thank you, Ivett Ash APRN.CNP See DVTelt message. Windy Rainey Ma documented in this encounter [facility] 12-11-2022 Miscellaneous Notes Britton--08/16/22 Nov--nothing scheduled Last refill--10/24/22 30 with 1 refill Last labs--08/17/22 documented in this encounter [facility] 10-31-2022 Miscellaneous Notes Contacted patient in regards to scheduling consult with Gastro - Dr. Mayank Worley (as referred by Abad) to assess further Patient stated she will call and schedule consult Encounter closed documented in this encounter [facility] 10-24-2022 Miscellaneous Notes pt calling regarding prescription, states completely out of medication. Patient has been identified by name and date of : Yes Requested Prescriptions Pending Prescriptions Disp Refills liothyronine (CYTOMEL) 5 mcg tablet 30 tablet 1 Sig: Take 1 tablet by mouth once daily. Mid afternoon between meals. RX INSTRUCTIONS: Patient aware RX will be sent to pharmacy. No need to notify patient. Patient last office visit: 08/16/22 Patient next office visit: none scheduled Ashwini Medina MA documented in this encounter [facility] 10-24-2022 Miscellaneous Notes PLEASE SEE REFILL REQUEST 10/21/22. Mary Martinez MA documented in this encounter [facility] 10-23-2022 Miscellaneous Notes Pharmacy request denied. Patient needs to contact office for refills. Ashwini Medina MA documented in this encounter [facility] 10-19-2022 Note HNO ID: [id number] Author: Warren Melgoza MD Service: ? Author Type: Physician Type: Progress Notes Filed: 10/19/2022 1:56 PM Note Text: Subjective: Patient status post an EGD on 10/05/2022. For all intents and purposes this was negative biopsies for H. pylori were negative duodenal biopsies were negative as well as her esophageal biopsies. She still having epigastric pain particularly when she eats things that comes in a sharp way in this area. She has had a gallbladder ultrasound which has not shown any abnormalities with the biliary system there is no sludge no pericholecystic fluid gallbladder wall thickness is normal. In addition the patient has had a HIDA scan with ejection fraction which showed her ejection fraction to be at greater than 60%. Objective:Pulse 88, temperature 36.5 ?C (97.7 ?F), height 160 cm (5' 3 ), weight 76.2 kg (168 lb), SpO2 97 %. Abdomen is soft no rebound guarding or peritoneal signs are identified. Palpation of the xiphoid and costal margins do not show any signs of costochondritis. Assessment:Nausea (primary encounter diagnosis) Epigastric pain Plan: I think and I have to get her to gastroenterology to be evaluated for possible esophageal spasms. She may need to have esophageal manometry done. She may need to have a 48-hour pH probe done but at the present time I do not think removing her gallbladder is going to alleviate her discomfort. [facility] 10-19-2022 Miscellaneous Notes Lisandro was seen in the office by Dr. Melgoza on 10/18/2022. Bekah Figueroa RN documented in this encounter [facility] 10-05-2022 Note HNO ID: [id number] Author: Rosio Garcia RN Service: ? Author Type: Registered Nurse Type: Nursing Progress Note Filed: 10/05/2022 12:12 PM Note Text: Abdomen soft non-distended. Will continue to monitor. [facility] 10-05-2022 Nurse Note Abdomen soft non-distended. Will continue to monitor. documented in this encounter [facility] 10-05-2022 History and physical note Images from the original note were not included. HISTORY AND PHYSICAL Lisandro De La Rosa 1975 REFERRING PHYSICIAN: Juwan Mercado APRN* CHIEF COMPLAINT: Consult (Bloating, epigastric pain, heartburn, nausea) HPI: The patient is a 47 year old female referred for endoscopy. Lisandro notes no history of colon complaints. The patient notes the following upper complaints: Lisandro notes abdominal pain. Heartburn, stomach pain-epigastric area. Nausea. Certain foods will exacerbate sx. Bloating frequently. Starts about an hour after eating, specifically fatty foods. Heating pad is helpful temporarily. Any alcohol/seltzers cause significant pain. Omeprazole as needed. . Lisandro notes heartburn. Lisandro notes dysphagia. Lisandro denies a history of ulcers/ peptic ulcer disease. Lisandro has not undergone prior endoscopy. She has been seen by an ear nose and throat doctor and was told that she has a lot of redness in the back of her oropharynx The patient is being seen by me today at the request of Dr. Juwan Mercado APRN.[facility] for my opinion and advice regarding Bloating Epigastric pain Heartburn Nausea. PAST MEDICAL HISTORY PAST MEDICAL HISTORY Diagnosis Date Asthma Bloating Constipation Heart burn Migraines Scoliosis Thyroid nodule 02/2021 PAST SURGICAL HISTORY PAST SURGICAL HISTORY Procedure Laterality Date BACK SURGERY HX 07/2016 L5-S1 laminectomy with Dr. Bermudez BREAST SURGERY HX augmentation SECTION HX SECTION HX HYSTERECTOMY HX LAVH PAST SURGICAL HISTORY OF breast augmentation PAST SURGICAL HISTORY OF cyst removed from RT. wrist REMOVAL OF THYROID 07/29/2021 Total CURRENT MEDICATIONS Current Outpatient Medications Medication Sig liothyronine (CYTOMEL) 5 mcg tablet Take 1 tablet by mouth once daily. Mid afternoon between meals. albuterol HFA (VENTOLIN HFA) 90 mcg/actuation inhaler Inhale 2 Puffs as instructed every 4 hours as needed for wheezing/shortness of breath. levothyroxine (SYNTHROID) 125 mcg tablet Take 1 tablet by mouth 4 days per week. Take 1/2 tablet by mouth 3 days per week. eagqrydooa-dxmlsrbj-aoaacsrhhf (BREZTRI) 160-9-4.8 mcg/actuation HFA aerosol inhaler Inhale 2 Puffs as instructed twice daily. (Patient not taking: Reported on 09/12/2022) No current facility-administered medications for this visit. ALLERGIES: Patient has no known allergies. PERSONAL HISTORY: SOCIAL HISTORY Social History Tobacco Use Smoking status: Former Packs/day: 0.50 Years: 30.00 Pack years: 15.00 Types: Cigarettes Quit date: 03/13/2022 Years since quittin.5 Smokeless tobacco: Never Vaping Use Vaping Use: current everyday user Substances: Nicotine, Flavoring Substance Use Topics Alcohol use: Yes Comment: occasionally Drug use: No FAMILY HISTORY: FAMILY HISTORY FAMILY HISTORY Problem Relation Age of Onset other (other) Mother breast issues Cervical Cancer Sister other (low platelets) Sister Systemic Lupus Erythematosus Sister Breast Cancer Other both sides of family REVIEW OF SYMPTOMS: The review of systems data was entered by the nurse and reviewed by ak Nursing Notes: Surekha Montanez LPN 09/12/2022 4:29 PM Signed REVIEW OF SYSTEMS: General: The patient denies fatigue, denies weight loss, denies weight gain, denies feeling hot, and denies feelings of cold. Eyes: The patient denies glaucoma, denies eye injury/surgery, wears glasses or contacts. Ear/Nose/Throat: The patient denies allergies, denies hayfever, denies ear infections, and denies bloody noses. Cardiovascular: The patient denies chest pain, denies heart disease, denies high blood pressure,denies cardiac stent, denies prior heart attack, denies irregular heart beat, denies high cholesterol, denies poor circulation, denies heart failure, other cardiac issues, denies claudication, denies cold feet, denies peripheral arterial stent. Respiratory: The patient denies tuberculosis, denies pneumonia, denies frequent cough, denies pulmonary embolism, denies shortness of breath, and denies coughing up blood, notes asthma Gastrointestinal: The patient denies difficulty swallowing, denies acid reflux, denies ulcers, denies vomiting, denies jaundice/hepatitis, denies gallbladder problems, denies black or tarry stools, denies hemorrhoids, denies bleeding from rectum, denies diverticulitis, denies constipation, denies diarrhea, denies loss of stool control, and denies hernias. Kidney/Bladder: The patient denies kidney stones, denies urine infections, and denies bloody urine. Skin: The patient denies a history of skin cancer, denies bleeding/changing moles, and denies a history of skin rash. Neurologic: The patient denies a history of epilepsy/convulsions, notes headaches, denies head/spinal injuries, and denies stroke/TIA. Psychiatric: The patient denies psychiatric medications, denies depression, and denies voices, denies substance abuse. Endocrine: The patient notes thyroid disorders, denies diabetes, and denies hormonal problems. Hematologic: The patient denies a history of bruising, denies bleeding, and denies anemia, denies blood clots. Infections: The patient denies a history of measles and mumps, denies rheumatic fever, and denies sexually transmitted diseases. Musculoskeletal: The patient denies back pain/injury, notes back problems, denies sciatica, denies knee/foot trouble, denies arthritis, or denies gout. When was patient's last Mammogram screening? 2021 Last Colonoscopy: 2015 Surekha Montanez LPN PHYSICAL EXAMINATION: General: The patient is 47 year old female, well nourished, well hydrated in no acute distress. The patient is oriented to time, place, and person. VITALS: Blood pressure 118/70, pulse 85, temperature 36.6 C (97.8 F), height 160 cm (5' 3 ), weight 76.2 kg (168 lb), SpO2 99 %. Body mass index is 29.76 kg/m . HEENT: Normal cephalic, ataumatic, pupils are equally round, sclera are anicteric, mucous membranes are moist, oropharynx is clear. Neck has no masses, asymmetry or lymphadenopathy. Thyroid is unremarkable. Respiratory: Clear to auscultation and percussion. Normal respiratory excursion and pattern. Cardiac: Examination is regular rate and rhythm. Abdominal exam: Soft, nontender, with no palpable masses. No hepatosplenomegaly. No palpable hernias. Rectal exam: exam deferred Extremities: no clubbing, cyanosis or edema. No adenopathy. Other: LABORATORY VALUES: As Noted RADIOLOGIC STUDIES: As Noted Assessment IMPRESSION: Bloating Epigastric pain Heartburn Nausea PLAN: I plan to perform upper endoscopy. We discussed the risks and benefits of the planned endoscopy. I have informed the patient that complications can occur including failure to complete the endoscopy and perforation. The patient had the opportunity to ask questions concerning the planned endoscopy. My staff has also explained the procedure to the patient in understandable terms and has given the patient printed material concerning the procedure. The patient freely consents to surgery. Diagnoses: (R14.0) Bloating (R10.13) Epigastric pain (R12) Heartburn (R11.0) Nausea My findings have been communicated to Dr. Juwan Mercado APRN.CNP via shared medical record. This note will be forwarded to Dr. Juwan Mercado APRN.CNP. Return to Clinic: The patient is instructed to follow-up with me 1 week post operatively. Warren Melgoza III, MD UPDATED HISTORY AND PHYSICAL EXAMINATION SERVICE DATE: 10/05/2022 SERVICE TIME: 10:53 AM PHYSICAL EXAM MUST BE COMPLETED ON ADMISSION The History and Physical (completed in the past 30 days) has been reviewed and the patient has been examined. The contents accurately reflect the patient's condition with the following additions or revisions since the H&P was completed. Examination indicates no changes. This H&P can be found in the attached. SIGNATURE: Warren Melgoza III, MD PATIENT NAME: Lisandro De La Rosa DATE: October 05, 2022 TIME: 10:53 AM documented in this encounter [facility] 09-14-2022 Miscellaneous Notes 10/05/2022 egd asc documented in this encounter [facility] 09-12-2022 Note HNO ID: [id number] Author: Warren Melgoza MD Service: ? Author Type: Physician Type: Progress Notes Filed: 09/13/2022 11:53 AM Note Text: HISTORY AND PHYSICAL Lisandro De La Rosa 1975 REFERRING PHYSICIAN: Juwan Mercado APRN* CHIEF COMPLAINT: Consult (Bloating, epigastric pain, heartburn, nausea) HPI: The patient is a 47 year old female referred for endoscopy. Lisandro notes no history of colon complaints. The patient notes the following upper complaints: Lisandro notes abdominal pain. Heartburn, stomach pain-epigastric area. Nausea. Certain foods will exacerbate sx. Bloating frequently. Starts about an hour after eating, specifically fatty foods. Heating pad is helpful temporarily. Any alcohol/seltzers cause significant pain. Omeprazole as needed. . Lisandro notes heartburn. Lisandro notes dysphagia. Lisandro denies a history of ulcers/ peptic ulcer disease. Lisandro has not undergone prior endoscopy. She has been seen by an ear nose and throat doctor and was told that she has a lot of redness in the back of her oropharynx The patient is being seen by me today at the request of Dr. Juwan Mercado APRN.[facility] for my opinion and advice regarding Bloating Epigastric pain Heartburn Nausea. PAST MEDICAL HISTORY Diagnosis Date Asthma Bloating Constipation Heart burn Migraines Scoliosis Thyroid nodule 02/2021 PAST SURGICAL HISTORY Procedure Laterality Date BACK SURGERY HX 07/2016 L5-S1 laminectomy with Dr. Bermudez BREAST SURGERY HX augmentation SECTION HX SECTION HX HYSTERECTOMY HX LAVH PAST SURGICAL HISTORY OF breast augmentation PAST SURGICAL HISTORY OF cyst removed from RT. wrist REMOVAL OF THYROID 07/29/2021 Total Current Outpatient Medications Medication Sig liothyronine (CYTOMEL) 5 mcg tablet Take 1 tablet by mouth once daily. Mid afternoon between meals. albuterol HFA (VENTOLIN HFA) 90 mcg/actuation inhaler Inhale 2 Puffs as instructed every 4 hours as needed for wheezing/shortness of breath. levothyroxine (SYNTHROID) 125 mcg tablet Take 1 tablet by mouth 4 days per week. Take 1/2 tablet by mouth 3 days per week. qdlpabbnyv-mdcykprb-vkkyuyivgb (BREZTRI) 160-9-4.8 mcg/actuation HFA aerosol inhaler Inhale 2 Puffs as instructed twice daily. (Patient not taking: Reported on 09/12/2022) No current facility-administered medications for this visit. ALLERGIES: Patient has no known allergies. PERSONAL HISTORY: Social History Tobacco Use Smoking status: Former Packs/day: 0.50 Years: 30.00 Pack years: 15.00 Types: Cigarettes Quit date: 03/13/2022 Years since quittin.5 Smokeless tobacco: Never Vaping Use Vaping Use: current everyday user Substances: Nicotine, Flavoring Substance Use Topics Alcohol use: Yes Comment: occasionally Drug use: No FAMILY HISTORY: FAMILY HISTORY Problem Relation Age of Onset other (other) Mother breast issues Cervical Cancer Sister other (low platelets) Sister Systemic Lupus Erythematosus Sister Breast Cancer Other both sides of family REVIEW OF SYMPTOMS: The review of systems data was entered by the nurse and reviewed by me Nursing Notes: Surekha Montanez LPN 09/12/2022 4:29 PM Signed REVIEW OF SYSTEMS: General: The patient denies fatigue, denies weight loss, denies weight gain, denies feeling hot, and denies feelings of cold. Eyes: The patient denies glaucoma, denies eye injury/surgery, wears glasses or contacts. Ear/Nose/Throat: The patient denies allergies, denies hayfever, denies ear infections, and denies bloody noses. Cardiovascular: The patient denies chest pain, denies heart disease, denies high blood pressure,denies cardiac stent, denies prior heart attack, denies irregular heart beat, denies high cholesterol, denies poor circulation, denies heart failure, other cardiac issues, denies claudication, denies cold feet, denies peripheral arterial stent. Respiratory: The patient denies tuberculosis, denies pneumonia, denies frequent cough, denies pulmonary embolism, denies shortness of breath, and denies coughing up blood, notes asthma Gastrointestinal: The patient denies difficulty swallowing, denies acid reflux, denies ulcers, denies vomiting, denies jaundice/hepatitis, denies gallbladder problems, denies black or tarry stools, denies hemorrhoids, denies bleeding from rectum, denies diverticulitis, denies constipation, denies diarrhea, denies loss of stool control, and denies hernias. Kidney/Bladder: The patient denies kidney stones, denies urine infections, and denies bloody urine. Skin: The patient denies a history of skin cancer, denies bleeding/changing moles, and denies a history of skin rash. Neurologic: The patient denies a history of epilepsy/convulsions, notes headaches, denies head/spinal injuries, and denies stroke/TIA. Psychiatric: The patient denies psychiatric medications, denies depression, and denies voices, denies s (more content not included)... [facility] 09-12-2022 History of Presen t illness Narrative HISTORY AND PHYSICAL Lisandro De La Rosa 1975 REFERRING PHYSICIAN: Juwan Mercado APRN* CHIEF COMPLAINT: Consult (Bloating, epigastric pain, heartburn, nausea) HPI: The patient is a 47 year old female referred for endoscopy. Lisandro notes no history of colon complaints. The patient notes the following upper complaints: Lisandro notes abdominal pain. Heartburn, stomach pain-epigastric area. Nausea. Certain foods will exacerbate sx. Bloating frequently. Starts about an hour after eating, specifically fatty foods. Heating pad is helpful temporarily. Any alcohol/seltzers cause significant pain. Omeprazole as needed. . Lisandro notes heartburn. Lisandro notes dysphagia. Lisandro denies a history of ulcers/ peptic ulcer disease. Lisandro has not undergone prior endoscopy. She has been seen by an ear nose and throat doctor and was told that she has a lot of redness in the back of her oropharynx The patient is being seen by me today at the request of Dr. Juwan Mercado APRN.[facility] for my opinion and advice regarding Bloating Epigastric pain Heartburn Nausea. PAST MEDICAL HISTORY Diagnosis Date Asthma Bloating Constipation Heart burn Migraines Scoliosis Thyroid nodule 02/2021 PAST SURGICAL HISTORY Procedure Laterality Date BACK SURGERY HX 07/2016 L5-S1 laminectomy with Dr. Bermudez BREAST SURGERY HX augmentation SECTION HX SECTION HX HYSTERECTOMY HX LAVH PAST SURGICAL HISTORY OF breast augmentation PAST SURGICAL HISTORY OF cyst removed from RT. wrist REMOVAL OF THYROID 07/29/2021 Total Current Outpatient Medications Medication Sig liothyronine (CYTOMEL) 5 mcg tablet Take 1 tablet by mouth once daily. Mid afternoon between meals. albuterol HFA (VENTOLIN HFA) 90 mcg/actuation inhaler Inhale 2 Puffs as instructed every 4 hours as needed for wheezing/shortness of breath. levothyroxine (SYNTHROID) 125 mcg tablet Take 1 tablet by mouth 4 days per week. Take 1/2 tablet by mouth 3 days per week. jkvpfozfnf-tcjjjtgy-yddxwxcooe (BREZTRI) 160-9-4.8 mcg/actuation HFA aerosol inhaler Inhale 2 Puffs as instructed twice daily. (Patient not taking: Reported on 09/12/2022) No current facility-administered medications for this visit. ALLERGIES: Patient has no known allergies. PERSONAL HISTORY: Social History Tobacco Use Smoking status: Former Packs/day: 0.50 Years: 30.00 Pack years: 15.00 Types: Cigarettes Quit date: 03/13/2022 Years since quittin.5 Smokeless tobacco: Never Vaping Use Vaping Use: current everyday user Substances: Nicotine, Flavoring Substance Use Topics Alcohol use: Yes Comment: occasionally Drug use: No FAMILY HISTORY: FAMILY HISTORY Problem Relation Age of Onset other (other) Mother breast issues Cervical Cancer Sister other (low platelets) Sister Systemic Lupus Erythematosus Sister Breast Cancer Other both sides of family REVIEW OF SYMPTOMS: The review of systems data was entered by the nurse and reviewed by ak Nursing Notes: Surekha Montanez LPN 09/12/2022 4:29 PM Signed REVIEW OF SYSTEMS: General: The patient denies fatigue, denies weight loss, denies weight gain, denies feeling hot, and denies feelings of cold. Eyes: The patient denies glaucoma, denies eye injury/surgery, wears glasses or contacts. Ear/Nose/Throat: The patient denies allergies, denies hayfever, denies ear infections, and denies bloody noses. Cardiovascular: The patient denies chest pain, denies heart disease, denies high blood pressure,denies cardiac stent, denies prior heart attack, denies irregular heart beat, denies high cholesterol, denies poor circulation, denies heart failure, other cardiac issues, denies claudication, denies cold feet, denies peripheral arterial stent. Respiratory: The patient denies tuberculosis, denies pneumonia, denies frequent cough, denies pulmonary embolism, denies shortness of breath, and denies coughing up blood, notes asthma Gastrointestinal: The patient denies difficulty swallowing, denies acid reflux, denies ulcers, denies vomiting, denies jaundice/hepatitis, denies gallbladder problems, denies black or tarry stools, denies hemorrhoids, denies bleeding from rectum, denies diverticulitis, denies constipation, denies diarrhea, denies loss of stool control, and denies hernias. Kidney/Bladder: The patient denies kidney stones, denies urine infections, and denies bloody urine. Skin: The patient denies a history of skin cancer, denies bleeding/changing moles, and denies a history of skin rash. Neurologic: The patient denies a history of epilepsy/convulsions, notes headaches, denies head/spinal injuries, and denies stroke/TIA. Psychiatric: The patient denies psychiatric medications, denies depression, and denies voices, denies substance abuse. Endocrine: The patient notes thyroid disorders, denies diabetes, and denies hormonal problems. Hematologic: The patient denies a history of bruising, denies bleeding, and denies anemia, denies blood clots. Infections: The patient denies a history of measles and mumps, denies rheumatic fever, and denies sexually transmitted diseases. Musculoskeletal: The patient denies back pain/injury, notes back problems, denies sciatica, denies knee/foot trouble, denies arthritis, or denies gout. When was patient's last Mammogram screening? 2021 Last Colonoscopy: 2015 Surekha Montanez LPN PHYSICAL EXAMINATION: General: The patient is 47 year old female, well nourished, well hydrated in no acute distress. The patient is oriented to time, place, and person. VITALS: Blood pressure 118/70, pulse 85, temperature 36.6 C (97.8 F), height 160 cm (5' 3 ), weight 76.2 kg (168 lb), SpO2 99 %. Body mass index is 29.76 kg/m . HEENT: Normal cephalic, ataumatic, pupils are equally round, sclera are anicteric, mucous membranes are moist, oropharynx is clear. Neck has no masses, asymmetry or lymphadenopathy. Thyroid is unremarkable. Respiratory: Clear to auscultation and percussion. Normal respiratory excursion and pattern. Cardiac: Examination is regular rate and rhythm. Abdominal exam: Soft, nontender, with no palpable masses. No hepatosplenomegaly. No palpable hernias. Rectal exam: exam deferred Extremities: no clubbing, cyanosis or edema. No adenopathy. Other: LABORATORY VALUES: As Noted RADIOLOGIC STUDIES: As Noted Assessment IMPRESSION: Bloating Epigastric pain Heartburn Nausea PLAN: I plan to perform upper endoscopy. We discussed the risks and benefits of the planned endoscopy. I have informed the patient that complications can occur including failure to complete the endoscopy and perforation. The patient had the opportunity to ask questions concerning the planned endoscopy. My staff has also explained the procedure to the patient in understandable terms and has given the patient printed material concerning the procedure. The patient freely consents to surgery. Diagnoses: (R14.0) Bloating (R10.13) Epigastric pain (R12) Heartburn (R11.0) Nausea My findings have been communicated to Dr. Juwan Mercado APRN.CNP via shared medical record. This note will be forwarded to Dr. Juwan Mercado APRN.CNP. Return to Clinic: The patient is instructed to follow-up with me 1 week post operatively. Warren Melgoza III, MD documented in this encounter [facility] 09-12-2022 Nurse Note REVIEW OF SYSTEMS: General: The patient denies fatigue, denies weight loss, denies weight gain, denies feeling hot, and denies feelings of cold. Eyes: The patient denies glaucoma, denies eye injury/surgery, wears glasses or contacts. Ear/Nose/Throat: The patient denies allergies, denies hayfever, denies ear infections, and denies bloody noses. Cardiovascular: The patient denies chest pain, denies heart disease, denies high blood pressure,denies cardiac stent, denies prior heart attack, denies irregular heart beat, denies high cholesterol, denies poor circulation, denies heart failure, other cardiac issues, denies claudication, denies cold feet, denies peripheral arterial stent. Respiratory: The patient denies tuberculosis, denies pneumonia, denies frequent cough, denies pulmonary embolism, denies shortness of breath, and denies coughing up blood, notes asthma Gastrointestinal: The patient denies difficulty swallowing, denies acid reflux, denies ulcers, denies vomiting, denies jaundice/hepatitis, denies gallbladder problems, denies black or tarry stools, denies hemorrhoids, denies bleeding from rectum, denies diverticulitis, denies constipation, denies diarrhea, denies loss of stool control, and denies hernias. Kidney/Bladder: The patient denies kidney stones, denies urine infections, and denies bloody urine. Skin: The patient denies a history of skin cancer, denies bleeding/changing moles, and denies a history of skin rash. Neurologic: The patient denies a history of epilepsy/convulsions, notes headaches, denies head/spinal injuries, and denies stroke/TIA. Psychiatric: The patient denies psychiatric medications, denies depression, and denies voices, denies substance abuse. Endocrine: The patient notes thyroid disorders, denies diabetes, and denies hormonal problems. Hematologic: The patient denies a history of bruising, denies bleeding, and denies anemia, denies blood clots. Infections: The patient denies a history of measles and mumps, denies rheumatic fever, and denies sexually transmitted diseases. Musculoskeletal: The patient denies back pain/injury, notes back problems, denies sciatica, denies knee/foot trouble, denies arthritis, or denies gout. When was patient's last Mammogram screening? 2021 Last Colonoscopy: 2015 Surekha Montanez LPN documented in this encounter [facility] 08-24-2022 Note HNO ID: [id number] Author: RT Raghavendra(R) Service: Nuclear Medicine Author Type: Technologist Type: Progress Notes Filed: 08/24/2022 3:34 PM Note Text: RADIOLOGY SERVICE PROGRESS NOTE SERVICE DATE: 08/24/2022 SERVICE TIME: 2:05 PM PATIENT IDENTITY VERIFICATION COMPLETED USING TWO (2) STANDARD IDENTIFIERS: Name and Date of confirmed by patient verbally FALL SCREENING: Has the patient had 2 falls in the last year or 1 fall with injury or currently using an Ambulatory Assistive Device (Walker, Cane, Wheelchair, Crutches, etc.)? No PATIENT GENDER DATA: .female : No status: No ALLERGIES: Reviewed and unchanged MEDICATIONS REVIEWED: No PATIENT RELEVANT IMPLANT DATA REVIEWED: Not Applicable CREATININE: Creatinine Date Value Ref Range Status 08/17/2022 0.85 0.58 - 0.96 mg/dL Final 04/28/2022 0.81 0.58 - 0.96 mg/dL Final 06/16/2021 0.85 0.58 - 0.96 mg/dL Final Estimated Glomerular Filtration Rate Date Value Ref Range Status 08/17/2022 85 >=60 mL/min/1.73m? Final Comment: Estimated Glomerular Filtration Rate (eGFR) is calculated using the 2020 CKD-EPI creatinine equation. This equation utilizes serum creatinine, sex, and age as parameters. The creatinine assay has traceable calibration to isotope dilution-mass spectrometry. Refer to KDIGO guidelines for clinical interpretation. In patients with unstable renal function, e.g. those with acute kidney injury, the eGFR may not accurately reflect actual GFR. eGFR- Date Value Ref Range Status 03/17/2021 >60 Final P.O.C.T. RESULTS: N/A August 24, [address] PERFORMED: No IV SITE: Ambulatory: A peripheral IV was started in the Left antecubital site with a Angio cath: 24 gauge. POST EXAM PIV STATUS: Discontinued PROCEDURE TYPE: NM INJECT: Hepatobiliary with Gallbladder EF. 5.5 mCi Tc99m CHOLETEC. CCK 1.52 micrograms intravenous at 15:19. ADMINISTRATION TIME: 14:16 PATIENT DISCHARGED TO: Ambulatory patient, left NM department area. A Diagnostic radioactive procedure has taken place, with no further precautions necessary other than routine body substance precautions. More information regarding radiation safety can be found using this link: [email or web address]%20Me [email or web address] SIGNATURE: RT Raghaevndra(R) PATIENT NAME: Lisandro De La Rosa DATE: August 24, 2022 TIME: 2:32 PM PAGER/CONTACT #: [facility] 08-24-2022 History of Presen t illness Narrative RADIOLOGY SERVICE PROGRESS NOTE SERVICE DATE: 08/24/2022 SERVICE TIME: 2:05 PM PATIENT IDENTITY VERIFICATION COMPLETED USING TWO (2) STANDARD IDENTIFIERS: Name and Date of confirmed by patient verbally FALL SCREENING: Has the patient had 2 falls in the last year or 1 fall with injury or currently using an Ambulatory Assistive Device (Walker, Cane, Wheelchair, Crutches, etc.)? No PATIENT GENDER DATA: .female : No status: No ALLERGIES: Reviewed and unchanged MEDICATIONS REVIEWED: No PATIENT RELEVANT IMPLANT DATA REVIEWED: Not Applicable CREATININE: Creatinine Date Value Ref Range Status 08/17/2022 0.85 0.58 - 0.96 mg/dL Final 04/28/2022 0.81 0.58 - 0.96 mg/dL Final 06/16/2021 0.85 0.58 - 0.96 mg/dL Final Estimated Glomerular Filtration Rate Date Value Ref Range Status 08/17/2022 85 >=60 mL/min/1.73m Final Comment: Estimated Glomerular Filtration Rate (eGFR) is calculated using the 2020 CKD-EPI creatinine equation. This equation utilizes serum creatinine, sex, and age as parameters. The creatinine assay has traceable calibration to isotope dilution-mass spectrometry. Refer to KDIGO guidelines for clinical interpretation. In patients with unstable renal function, e.g. those with acute kidney injury, the eGFR may not accurately reflect actual GFR. eGFR- Date Value Ref Range Status 03/17/2021 >60 Final P.O.C.T. RESULTS: N/A August 24, [address] PERFORMED: No IV SITE: Ambulatory: A peripheral IV was started in the Left antecubital site with a Angio cath: 24 gauge. POST EXAM PIV STATUS: Discontinued PROCEDURE TYPE: NM INJECT: Hepatobiliary with Gallbladder EF. 5.5 mCi Tc99m CHOLETEC. CCK 1.52 micrograms intravenous at 15:19. ADMINISTRATION TIME: 14:16 PATIENT DISCHARGED TO: Ambulatory patient, left NM department area. A Diagnostic radioactive procedure has taken place, with no further precautions necessary other than routine body substance precautions. More information regarding radiation safety can be found using this link: [email or web address]%[email or web address] uclear%20Medicine%20Procedures.[email or web address] df SIGNATURE: RT Raghavendra(R) PATIENT NAME: Lisandro De La Rosa DATE: August 24, 2022 TIME: 2:32 PM PAGER/CONTACT #: documented in this encounter [facility] 08-22-2022 Miscellaneous Notes TC to patient who verbalized understanding of providers message. Patient states she had uptake scan completed this past for an unrelated issue and she thinks that some of her symptoms are from her gallbladder. She would like to hold of on Endo consult until she receives the results of the scan. DEREK Christiansen Please let Lisandro know I received her lab results. Her vitamin D level is low. I recommend she begin a daily Vitamin D3 supplement of 2000 international unit(s). No concern for anemia. We discussed at her appointment consulting endocrinology for further thyroid treatment. Is this something she would like to pursue? Juwan Mercado APRN.REYNA documented in this encounter [facility] 08-17-2022 Note HNO ID: [id number] Author: Ilana Singh RDMS Service: ? Author Type: Coat Hanger Shaper Machine Operator Type: Progress Notes Filed: 08/17/2022 3:58 PM Note Text: Radiology Service Progress Note PATIENT NAME: Lisandro De La Rosa DATE OF SERVICE: August 17, 2022 TIME: 3:58 PM PATIENT IDENTITY VERIFICATION COMPLETED USING TWO (2) IDENTIFIERS: Name and Date of confirmed by patient verbally. FALL SCREENING: Has the patient had 2 falls in the last year or 1 fall with injury or currently using an Ambulatory Assistive Device (Walker, Cane, Wheelchair, Crutches, etc.)? No PATIENT GENDER DATA: Female. status: : No status: NO. PATIENT RELEVANT IMPLANT DATA REVIEWED: Not Applicable RADIOLOGY DEPARTMENT: Ultrasound PERIPHERAL IV DATA: Not applicable SIGNED BY: Ilana Singh RDMS RVT August 17, 2022 3:58 PM [facility] 08-17-2022 History of Presen t illness Narrative Radiology Service Progress Note PATIENT NAME: Lisandro De La Rosa DATE OF SERVICE: August 17, 2022 TIME: 3:58 PM PATIENT IDENTITY VERIFICATION COMPLETED USING TWO (2) IDENTIFIERS: Name and Date of confirmed by patient verbally. FALL SCREENING: Has the patient had 2 falls in the last year or 1 fall with injury or currently using an Ambulatory Assistive Device (Walker, Cane, Wheelchair, Crutches, etc.)? No PATIENT GENDER DATA: Female. status: : No status: NO. PATIENT RELEVANT IMPLANT DATA REVIEWED: Not Applicable RADIOLOGY DEPARTMENT: Ultrasound PERIPHERAL IV DATA: Not applicable SIGNED BY: Ilana Singh RDMS RVT August 17, 2022 3:58 PM documented in this encounter [facility] 08-16-2022 Note HNO ID: [id number] Author: Juwan Mercado APRN.HUMAN RESOURCES COMPLIANCE MANAGER Service: ? Author Type: Nurse Practitioner Type: Progress Notes Filed: 08/24/2022 9:04 AM Note Text: Chief Complaint Patient presents with: Headache Results, Lab: Thyroid Abdominal Pain: Heartburn HPI Lisandro De La Rosa is a 47 year old female who presents here today for Above Complaints.. Today: Thyroid-since adding Cytomel about a month ago hasn't felt any change. Feels like overall is feeling a lot worse. Current-lack of motivation, fatigue, exhausted. Denies depression. Overall is sleeping well. Back-overall back pain is a lot better. Will be having an injection soon. Sees Dr. Workman in [place]. Heartburn, stomach pain-epigastric area. Nausea. Certain foods will exacerbate sx. Bloating frequently. Starts about an hour after eating, specifically fatty foods. Heating pad is helpful temporarily. Any alcohol/seltzers cause significant pain. Omeprazole as needed. About a week ago and other people had told her that the whites of her eyes we yellow. Now are back to normal. Migraines-nothing is working. About 9 years ago saw a neurologist in [place], nothing seemed to help. Was told Botox would help but did not want to go that route. Interested in this at this point. Fioricet, Imitrex, (worked best but stopped working) Maxalt. Every single morning wakes up with thumping migraine. + photosensitivity. +nausea, occasionally vomiting. Going into a dark room and room has to be cold, uses ice packs. Past medical history, appointments, medications, allergies reviewed. Previous Medical History PAST MEDICAL HISTORY Diagnosis Date Asthma Constipation Migraines Scoliosis Thyroid nodule 02/2021 Previous Surgical History PAST SURGICAL HISTORY Procedure Laterality Date BACK SURGERY HX 07/2016 L5-S1 laminectomy with Dr. Bermudez BREAST SURGERY HX augmentation SECTION HX SECTION HX HYSTERECTOMY HX LAVH PAST SURGICAL HISTORY OF breast augmentation PAST SURGICAL HISTORY OF cyst removed from RT. wrist REMOVAL OF THYROID 07/29/2021 Total Family History FAMILY HISTORY Problem Relation Age of Onset other (other) Mother breast issues Cervical Cancer Sister other (low platelets) Sister Systemic Lupus Erythematosus Sister Breast Cancer Other both sides of family Patient Allergies ALLERGIES No Known Allergies Current Medications Current Outpatient Medications on File Prior to Visit Medication Sig liothyronine (CYTOMEL) 5 mcg tablet Take 1 tablet by mouth once daily. Mid afternoon between meals. albuterol HFA (VENTOLIN HFA) 90 mcg/actuation inhaler Inhale 2 Puffs as instructed every 4 hours as needed for wheezing/shortness of breath. levothyroxine (SYNTHROID) 125 mcg tablet Take 1 tablet by mouth 4 days per week. Take 1/2 tablet by mouth 3 days per week. miuycvzoys-oiwuqnbq-hrxnnceyyy (BREZTRI) 160-9-4.8 mcg/actuation HFA aerosol inhaler Inhale 2 Puffs as instructed twice daily. DULoxetine (CYMBALTA) 20 mg capsule Take 1 capsule by mouth once daily. No current facility-administered medications on file prior to visit. Social History Social History Tobacco Use Smoking status: Every Day Packs/day: 0.50 Years: 30.00 Pack years: 15.00 Types: Cigarettes Smokeless tobacco: Never Vaping Use Vaping Use: Never used Substance Use Topics Alcohol use: Yes Comment: occasionally Drug use: No Review of Symptoms REVIEW OF SYSTEMS See HPI, otherwise negative EXAM: BP 116/80 (BP Site: Left Arm, BP Position: Sitting, BP Cuff Size: Regular Adult) Pulse 68 Resp 16 Wt 75.9 kg (167 lb 6.4 oz) LMP (LMP Unknown) SpO2 98% BMI 29.65 kg/m? General Appearance: Well appearing, alert, in no acute distress, well-hydrated, well nourished.. Head: Normocephalic, no masses, lesions, tenderness or abnormalities. Eyes: Anicteric sclera. Pupils are equally round and reactive to light. Extraocular movements are intact. . Ears: External ears normal, canals clear. Nose/Sinuses: Nares normal, septum midline, mucosa normal, no drainage or sinus tenderness. Oropharynx: Lips, mucosa, and tongue normal, teeth and gums normal, oropharynx normal. Neck: Supple, no adenopathy; thyroid symmetric, normal size, no bruits. Lungs: Lungs clear to auscultation. No wheezing, rhonchi, rales.. Heart: RRR without murmur, gallop, or rubs. No ectopy. Abdomen: Normal abdominal exam, Abdomen soft, non-tender. Bowel sounds normal. No masses, organomegaly. Extremities: No deformities, edema, skin discoloration, clubbing or cyanosis. Good capillary refill. . Musculoskeletal: No joint swelling, deformity, or tenderness. Peripheral Pulses: Normal. Neurologic: Gait normal. Reflexes normal and symmetric. Sensation grossly intact.. Lymph Nodes: No cervical lymphadenopathy and No supraclavicular lymphadenopathy. Psychiatric: pleasant, cooperative. Health Maintenanc (more content not included)... [facility] 08-16-2022 Instructions Juwan Mercado APRN.CNP - 08/16/2022 6:13 PM EDT Have your labs drawn. Schedule your abdominal ultrasound. Schedule your hida scan (looking at how well your gallbladder is functioning). Schedule with Dr. Combs/neurology for your migraines. Take the Carafate 4 times daily for 14 days. documented in this encounter [facility] 08-16-2022 History of Presen t illness Narrative Chief Complaint Patient presents with: Headache Results, Lab: Thyroid Abdominal Pain: Heartburn HPI Lisandro De La Rosa is a 47 year old female who presents here today for Above Complaints.. Today: Thyroid-since adding Cytomel about a month ago hasn't felt any change. Feels like overall is feeling a lot worse. Current-lack of motivation, fatigue, exhausted. Denies depression. Overall is sleeping well. Back-overall back pain is a lot better. Will be having an injection soon. Sees Dr. Workman in [place]. Heartburn, stomach pain-epigastric area. Nausea. Certain foods will exacerbate sx. Bloating frequently. Starts about an hour after eating, specifically fatty foods. Heating pad is helpful temporarily. Any alcohol/seltzers cause significant pain. Omeprazole as needed. About a week ago and other people had told her that the whites of her eyes we yellow. Now are back to normal. Migraines-nothing is working. About 9 years ago saw a neurologist in [place], nothing seemed to help. Was told Botox would help but did not want to go that route. Interested in this at this point. Fioricet, Imitrex, (worked best but stopped working) Maxalt. Every single morning wakes up with thumping migraine. + photosensitivity. +nausea, occasionally vomiting. Going into a dark room and room has to be cold, uses ice packs. Past medical history, appointments, medications, allergies reviewed. Previous Medical History PAST MEDICAL HISTORY Diagnosis Date Asthma Constipation Migraines Scoliosis Thyroid nodule 02/2021 Previous Surgical History PAST SURGICAL HISTORY Procedure Laterality Date BACK SURGERY HX 07/2016 L5-S1 laminectomy with Dr. Bermudez BREAST SURGERY HX augmentation SECTION HX SECTION HX HYSTERECTOMY HX LAVH PAST SURGICAL HISTORY OF breast augmentation PAST SURGICAL HISTORY OF cyst removed from RT. wrist REMOVAL OF THYROID 07/29/2021 Total Family History FAMILY HISTORY Problem Relation Age of Onset other (other) Mother breast issues Cervical Cancer Sister other (low platelets) Sister Systemic Lupus Erythematosus Sister Breast Cancer Other both sides of family Patient Allergies ALLERGIES No Known Allergies Current Medications Current Outpatient Medications on File Prior to Visit Medication Sig liothyronine (CYTOMEL) 5 mcg tablet Take 1 tablet by mouth once daily. Mid afternoon between meals. albuterol HFA (VENTOLIN HFA) 90 mcg/actuation inhaler Inhale 2 Puffs as instructed every 4 hours as needed for wheezing/shortness of breath. levothyroxine (SYNTHROID) 125 mcg tablet Take 1 tablet by mouth 4 days per week. Take 1/2 tablet by mouth 3 days per week. mbwtnrtzkz-poiwsdnw-qbsgvsquhe (BREZTRI) 160-9-4.8 mcg/actuation HFA aerosol inhaler Inhale 2 Puffs as instructed twice daily. DULoxetine (CYMBALTA) 20 mg capsule Take 1 capsule by mouth once daily. No current facility-administered medications on file prior to visit. Social History Social History Tobacco Use Smoking status: Every Day Packs/day: 0.50 Years: 30.00 Pack years: 15.00 Types: Cigarettes Smokeless tobacco: Never Vaping Use Vaping Use: Never used Substance Use Topics Alcohol use: Yes Comment: occasionally Drug use: No Review of Symptoms REVIEW OF SYSTEMS See HPI, otherwise negative EXAM: BP 116/80 (BP Site: Left Arm, BP Position: Sitting, BP Cuff Size: Regular Adult) Pulse 68 Resp 16 Wt 75.9 kg (167 lb 6.4 oz) LMP (LMP Unknown) SpO2 98% BMI 29.65 kg/m General Appearance: Well appearing, alert, in no acute distress, well-hydrated, well nourished.. Head: Normocephalic, no masses, lesions, tenderness or abnormalities. Eyes: Anicteric sclera. Pupils are equally round and reactive to light. Extraocular movements are intact. . Ears: External ears normal, canals clear. Nose/Sinuses: Nares normal, septum midline, mucosa normal, no drainage or sinus tenderness. Oropharynx: Lips, mucosa, and tongue normal, teeth and gums normal, oropharynx normal. Neck: Supple, no adenopathy; thyroid symmetric, normal size, no bruits. Lungs: Lungs clear to auscultation. No wheezing, rhonchi, rales.. Heart: RRR without murmur, gallop, or rubs. No ectopy. Abdomen: Normal abdominal exam, Abdomen soft, non-tender. Bowel sounds normal. No masses, organomegaly. Extremities: No deformities, edema, skin discoloration, clubbing or cyanosis. Good capillary refill. . Musculoskeletal: No joint swelling, deformity, or tenderness. Peripheral Pulses: Normal. Neurologic: Gait normal. Reflexes normal and symmetric. Sensation grossly intact.. Lymph Nodes: No cervical lymphadenopathy and No supraclavicular lymphadenopathy. Psychiatric: pleasant, cooperative. Health Maintenance List HEPATITIS B(1 of 3 - 3-dose series) Never done COVID-19 VACCINE(1) Never done PNEUMOCOCCAL(1 - PCV) Never done SPIROMETRY Never done HEPATITIS C SCREENING Never done HIV SCREENING Never done DTAP,TDAP,TD(1 - Tdap) Never done PAP TESTING Never done HPV TESTING Never done COLORECTAL CANCER SCREENING Never done DEPRESSION ASSESSMENT Never done INFLUENZA(Season Ended) due on 12/15/2022 MAMMOGRAM due on 02/21/2023 ANNUAL PCP TEAM CHRONIC DISEASE VISIT due on 05/26/2023 DIABETES SCREEN due on 04/28/2025 LIPID SCREEN due on 03/17/2026 Data reviewed Previous records, office notes ASSESSMENT/PLAN: 1. Exhaustion - ICD9: 780.79, ICD10: R53.83 (primary diagnosis) - CBC - COMP METABOLIC PANEL - IRON + TIBC - FERRITIN BLD - VITAMIN D 25 HYDROXY - VITAMIN B12 BLOOD 2. Fatigue, unspecified type - ICD9: 780.79, ICD10: R53.83 - CBC - COMP METABOLIC PANEL - IRON + TIBC - FERRITIN BLD - VITAMIN D 25 HYDROXY - VITAMIN B12 BLOOD 3. Lack of motivation - ICD9: V49.89, ICD10: Z91.89 - CBC - COMP METABOLIC PANEL - IRON + TIBC - FERRITIN BLD - VITAMIN D 25 HYDROXY - VITAMIN B12 BLOOD 4. Bloating - ICD9: 787.3, ICD10: R14.0 Begin qid sucralfate. Concern for gallbladder etiology. - NM HEPATOBILIARY W EF AND/OR RX - US ABD RIGHT UPPER QUADRANT - SUCRALFATE 1 GRAM TABLET 5. Epigastric pain - ICD9: 789.06, ICD10: R10.13 Begin qid sucralfate. Concern for gallbladder etiology. - NM HEPATOBILIARY W EF AND/OR RX - US ABD RIGHT UPPER QUADRANT - SUCRALFATE 1 GRAM TABLET 6. Heartburn - ICD9: 787.1, ICD10: R12 Begin qid sucralfate. Concern for gallbladder etiology. - NM HEPATOBILIARY W EF AND/OR RX - US ABD RIGHT UPPER QUADRANT - SUCRALFATE 1 GRAM TABLET 7. Nausea - ICD9: 787.02, ICD10: R11.0 Begin qid sucralfate. Concern for gallbladder etiology. - NM HEPATOBILIARY W EF AND/OR RX - US ABD RIGHT UPPER QUADRANT - SUCRALFATE 1 GRAM TABLET 8. Migraine with aura and without status migrainosus, not intractable - ICD9: 346.00, ICD10: G43.109 - CONSULT TO NEUROLOGY 9. Vitamin D deficiency - ICD9: 268.9, ICD10: E55.9 - VITAMIN D 25 HYDROXY 10. Encounter for vitamin deficiency screening - ICD9: V77.99, ICD10: Z13.21 - VITAMIN D 25 HYDROXY - VITAMIN B12 BLOOD 11. Screening for diabetes mellitus - ICD9: V77.1, ICD10: Z13.1 - CBC - COMP METABOLIC PANEL Juwan Mercado APRN.HUMAN RESOURCES COMPLIANCE MANAGER documented in this encounter [facility] 08-14-2022 Miscellaneous Notes Pharmacy request denied. Patient needs to contact office for refills. Ashwini Medina MA documented in this encounter [facility] 08-14-2022 Miscellaneous Notes Patient has been identified by name and date of : Yes Patient phones for refill(s): Requested Prescriptions Pending Prescriptions Disp Refills albuterol HFA (VENTOLIN HFA) 90 mcg/actuation inhaler 8.5 g 5 Sig: Inhale 2 Puffs as instructed every 4 hours as needed for wheezing/shortness of breath. levothyroxine (SYNTHROID) 125 mcg tablet Sig: Take 1 tablet by mouth 4 days per week. Take 1/2 tablet by mouth 3 days per week. Date of last office visit in primary care: 05/26/2022 Appt: 08/16/2022 Last 2 Encounter Wt Readings: Date: Wt: 05/26/2022 76 kg (167 lb 9.6 oz) 02/21/2022 73.9 kg (163 lb) Previous labs/tests for medication: Thyroid: TSH Date Value 08/01/2022 0.050 mIU/L 04/20/2021 0.485 uU/mL Please advise. Thank you. Cecilia Hughes LPN Pharmacy verified in Epic Patient has been identified by name and date of : Yes Patient aware RX will be sent to pharmacy. No need to notify patient. Patient phones for refill(s): Requested Prescriptions Pending Prescriptions Disp Refills albuterol HFA (VENTOLIN HFA) 90 mcg/actuation inhaler 8.5 g 5 Sig: Inhale 2 Puffs as instructed every 4 hours as needed for wheezing/shortness of breath. levothyroxine (SYNTHROID) 125 mcg tablet Sig: Take 1 tablet by mouth 4 days per week. Take 1/2 tablet by mouth 3 days per week. Date of last office visit : Visit date not found Date of next office visit : Visit date not found Last 2 Encounter Wt Readings: Date: Wt: 05/26/2022 76 kg (167 lb 9.6 oz) 02/21/2022 73.9 kg (163 lb) Please advise. Leatha Natarajan Pss documented in this encounter [facility] 06-23-2022 Miscellaneous Notes The following approved medication requests have been transmitted electronically. Requested Prescriptions Signed Prescriptions Disp Refills liothyronine (CYTOMEL) 5 mcg tablet 30 tablet 1 Sig: Take 1 tablet by mouth once daily. Mid afternoon between meals. Juwan Mercado APRN.CNP documented in this encounter [facility] 05-31-2022 Miscellaneous Notes Commented on xray results through [employer]. Juwan Mercado APRN.CNP Please see pt message. Looks like xrays are still in process. Marie Barcenas documented in this encounter [facility] 05-26-2022 Note HNO ID: [id number] Author: RT Diana(R) Service: ? Author Type: Correctional Manager Type: Progress Notes Filed: 05/26/2022 11:34 AM Note Text: Radiology Service Progress Note PATIENT NAME: Lisandro De La Rosa DATE OF SERVICE: May 26, 2022 TIME: 11:11 AM PATIENT IDENTITY VERIFICATION COMPLETED USING TWO (2) IDENTIFIERS: Name and Date of confirmed by patient verbally. FALL SCREENING: Has the patient had 2 falls in the last year or 1 fall with injury or currently using an Ambulatory Assistive Device (Walker, Cane, Wheelchair, Crutches, etc.)? No PATIENT GENDER DATA: Female. status: : No status: NO. PATIENT RELEVANT IMPLANT DATA REVIEWED: Yes RADIOLOGY DEPARTMENT: General X-ray: Exam(s) Completed: Chest X-Ray Lower Extremity X-Ray(s): Knee, AP / Lat / Tunne / Merchant Left PERIPHERAL IV DATA: Not applicable SIGNED BY: RT Diana(R) May 26, 2022 11:11 AM [facility] 05-26-2022 Note HNO ID: [id number] Author: Juwan Mercado APRN.HUMAN RESOURCES COMPLIANCE MANAGER Service: ? Author Type: Nurse Practitioner Type: Progress Notes Filed: 06/01/2022 2:21 PM Note Text: Chief Complaint Patient presents with: Nerve Pain: Hypersensitivity to mendez legs and buttocks HPI Lisandro De La Rosa is a 46 year old female who presents here today for Above Complaints. Today: Was seeing Dr. Zheng for back injections but this was done without anything numbing/sedating. Is now seeing Dr. Liu and this is going very well. Is working toward an ablation on her back-this should work for about 12 months and can have this repeated every 12 months as necessary. Having hypersensitivity to her outer bilateral thighs. Sometimes in her left buttock. Have calmed down a little. Seemed to get worse after recent back injections. Left knee-painful since the end of March, no injury. Vibrating heated knee brace. Not getting worse but not better. Kneeling is the worst. Rubbing up against anything. March 13 was first day with no smoking. Past medical history, appointments, medications, allergies reviewed. Previous Medical History PAST MEDICAL HISTORY Diagnosis Date Asthma Constipation Migraines Scoliosis Thyroid nodule 02/2021 Previous Surgical History PAST SURGICAL HISTORY Procedure Laterality Date BACK SURGERY HX 07/2016 L5-S1 laminectomy with Dr. Bermudez BREAST SURGERY HX augmentation SECTION HX SECTION HX HYSTERECTOMY HX LAVH PAST SURGICAL HISTORY OF breast augmentation PAST SURGICAL HISTORY OF cyst removed from RT. wrist REMOVAL OF THYROID 07/29/2021 Total Family History FAMILY HISTORY Problem Relation Age of Onset other (other) Mother breast issues Cervical Cancer Sister other (low platelets) Sister Systemic Lupus Erythematosus Sister Breast Cancer Other both sides of family Patient Allergies ALLERGIES No Known Allergies Current Medications Current Outpatient Medications on File Prior to Visit Medication Sig levothyroxine (SYNTHROID) 125 mcg tablet Take 1 tablet by mouth 4 days per week. Take 1/2 tablet by mouth 3 days per week. albuterol HFA (VENTOLIN HFA) 90 mcg/actuation inhaler Inhale 2 Puffs as instructed every 4 hours as needed for wheezing/shortness of breath. alglebpeeo-qjluyjrt-cwxvqdsqkw (BREZTRI) 160-9-4.8 mcg/actuation HFA aerosol inhaler Inhale 2 Puffs as instructed twice daily. DULoxetine (CYMBALTA) 20 mg capsule Take 1 capsule by mouth once daily. montelukast (SINGULAIR) 10 mg tablet Take 1 tablet by mouth daily at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 HPI, and ROS obtained by others. Some elements may be copied from a previous office note and have been reviewed/updated where appropriate. All portions reflect current medical decision making from today. The clinical and radiographic findings as well as the risks, benefits and alternatives of treatment have been reviewed in detail with the patient. The patient was advised to call the office if symptoms worsen or new symptoms develop. The patient expressed understanding and is in agreement with plan. Francois Desouza MD, PhD This note was partially generated using [employer] voice recognition system, and there may be some incorrect words, spellings, and punctuation that were not noted in checking the note before saving. documented in this encounter [facility] 11-23-2021 Instructions Juwan Mercado APRN.CNP - 11/23/2021 11:49 AM EDT Schedule for your spinal consult. Schedule for pain management. Let me know how the [place] is doing for your pain. Keep your cardiology consult. documented in this encounter [facility] 11-23-2021 History of Presen t illness Narrative Chief Complaint Patient presents with: Back Pain: MRI results HPI Lisandro De La Rosa is a 46 year old female who presents here today for Above Complaints.. Today: Hasn't been able to sleep at all r/t severe back pain. Continuously using a heating pad. Trying to cushion her back. Pain to bilateral groin radiating from lower back. Having to roll to the side to get herself up. Ibuprofen, Tylenol, icing, heating pad, Lidocaine. None of these has been helpful to any extent. Past medical history, appointments, medications, allergies reviewed. Previous Medical History PAST MEDICAL HISTORY Diagnosis Date Asthma Constipation Migraines Scoliosis Thyroid nodule 02/2021 Previous Surgical History PAST SURGICAL HISTORY Procedure Laterality Date BACK SURGERY HX BREAST SURGERY HX augmentation SECTION HX SECTION HX HYSTERECTOMY HX LAVH PAST SURGICAL HISTORY OF breast augmentation PAST SURGICAL HISTORY OF cyst removed from RT. wrist Family History FAMILY HISTORY Problem Relation Age of Onset other (other) Mother breast issues Cervical Cancer Sister other (low platelets) Sister Systemic Lupus Erythematosus Sister Breast Cancer Other both sides of family Patient Allergies ALLERGIES No Known Allergies Current Medications Current Outpatient Medications on File Prior to Visit Medication Sig levothyroxine (SYNTHROID) 125 mcg tablet Take 1 tablet by mouth 4 days per week. Take 1/2 tablet by mouth 3 days per week. albuterol HFA (VENTOLIN HFA) 90 mcg/actuation inhaler Inhale 2 Puffs as instructed every 4 hours as needed for wheezing/shortness of breath. montelukast (SINGULAIR) 10 mg tablet Take 1 tablet by mouth daily at bedtime. ltxmnryfft-srxettgc-unbcsiiojz (BREZTRI) 160-9-4.8 mcg/actuation HFA aerosol inhaler Inhale 2 Puffs as instructed twice daily. Current Facility-Administered Medications on File Prior to Visit Medication perflutren lipid microspheres 1.3 mL in NaCl (PF) 0.9% 10 mL injection (DEFINITY) sodium chloride 0.9 % (flush) 10 mL (BD POSIFLUSH) Social History Social History Tobacco Use Smoking status: Every Day Packs/day: 0.50 Years: 30.00 Pack years: 15.00 Types: Cigarettes Smokeless tobacco: Never Vaping Use Vaping Use: Never used Substance Use Topics Alcohol use: Yes Comment: occasionally Drug use: No Review of Symptoms REVIEW OF SYSTEMS See HPI, otherwise negative EXAM: BP 108/70 (BP Site: Left Arm, BP Position: Sitting, BP Cuff Size: Regular Adult) Pulse 87 Resp 16 Wt 74.7 kg (164 lb 9.6 oz) LMP (LMP Unknown) SpO2 98% BMI 29.16 kg/m General Appearance: Well appearing, alert, in no acute distress, well-hydrated, well nourished.. Back:no muscle tenderness, reflexes are 2+ and symmetric, motor and sensory appear to be normal, positive scoliosis, positive pain to palpation of lumbar spine Heart: RRR without murmur, gallop, or rubs. No ectopy. Psychiatric: pleasant, cooperative, tearful. Health Maintenance List HEPATITIS B(1 of 3 - 3-dose series) Never done COVID-19 VACCINE(1) Never done PNEUMOCOCCAL(1 - PCV) Never done SPIROMETRY Never done HEPATITIS C SCREENING Never done HIV SCREENING Never done DTAP,TDAP,TD(1 - Tdap) Never done PAP TESTING Never done HPV TESTING Never done COLORECTAL CANCER SCREENING Never done INFLUENZA(1) due on 12/15/2021 DEPRESSION SCREENING due on 02/01/2022 MAMMOGRAM due on 03/08/2022 ANNUAL PCP TEAM CHRONIC DISEASE VISIT due on 11/23/2022 DIABETES SCREEN due on 06/16/2024 LIPID SCREEN due on 03/17/2026 Data reviewed Previous records, office notes, OARRS report. ASSESSMENT/PLAN: 1. S/P lumbar discectomy - ICD9: V45.89, ICD10: Z98.890 (primary diagnosis) Referral to technical training specialist and pain management. Percocet prn severe pain. Continue heating pad, symptom management. - HYDROCODONE 7.5 MG-ACETAMINOPHEN 325 MG TABLET 2. Degenerative disc disease, lumbar - ICD9: 722.52, ICD10: M51.36 Referral to technical training specialist and pain management. Percocet prn severe pain. Continue heating pad, symptom management. - HYDROCODONE 7.5 MG-ACETAMINOPHEN 325 MG TABLET 3. Spinal stenosis of lumbar region, unspecified whether neurogenic claudication present - ICD9: 724.02, ICD10: M48.061 Referral to technical training specialist and pain management. Percocet prn severe pain. Continue heating pad, symptom management. - HYDROCODONE 7.5 MG-ACETAMINOPHEN 325 MG TABLET 4. Scoliosis, unspecified scoliosis type, unspecified spinal region - ICD9: 737.30, ICD10: M41.9 Referral to technical training specialist and pain management. Percocet prn severe pain. Continue heating pad, symptom management. - HYDROCODONE 7.5 MG-ACETAMINOPHEN 325 MG TABLET 5. Abnormal EKG - ICD9: 794.31, ICD10: R94.31 Continue to follow with cardiology as planned. Juwan Mercado APRN.[facility] PDMP website checked and validated. All prescriptions have been APPROPRIATELY filled. No suspicious activity was identified. 11/25/2021 by Juwan Mercado CNP. Greater than 50% of 36-minute visit spent face to face with patient in counseling and education. documented in this encounter [facility] 11-23-2021 Miscellaneous Notes See MyChart message from 11/18. Juwan Mercado APRN.CNP Please see pt message Marie Lynn Ma documented in this encounter [facility] 11-17-2021 History of Presen t illness Narrative Radiology Service Progress Note PATIENT NAME: Lisandro De La Rosa DATE OF SERVICE: November 17, 2021 TIME: 2:25 PM PATIENT IDENTITY VERIFICATION COMPLETED USING TWO (2) IDENTIFIERS: Name and Date of confirmed by patient verbally. FALL SCREENING: Has the patient had 2 falls in the last year or 1 fall with injury or currently using an Ambulatory Assistive Device (Walker, Cane, Wheelchair, Crutches, etc.)? No PATIENT GENDER DATA: Female. status: : No status: NO. PATIENT RELEVANT IMPLANT DATA REVIEWED: Not Applicable RADIOLOGY DEPARTMENT: MR; Exam(s) Completed: Spine: Lumbar spine PERIPHERAL IV DATA: Not applicable SIGNED BY: [facility] November 17, 2021 2:25 PM documented in this encounter [facility] 10-14-2021 Miscellaneous Notes Patient was notified Luisa Kothari Ma Please let Lisandro know that her TSH level is lower than previous. I'd like her to decrease her dose. Levothyroxine 125mcg-please have her take 1 tablet 4 days per week and 1/2 tablet 3 days per week. I'd like to recheck her labs again in 4-6 weeks. Juwan Mercado APRN.[facility] The following approved medication requests have been transmitted electronically. Signed Prescriptions Disp Refills levothyroxine (SYNTHROID) 125 mcg tablet Sig: Take 1 tablet by mouth 4 days per week. Take 1/2 tablet by mouth 3 days per week. JAIDA: No Authorizing Provider: JUWAN MERCADO APRN.CNP documented in this encounter [facility] 09-28-2021 Miscellaneous Notes britton--- 08/19/21 Next-- None scheduled Last refill--03/24/21 8g with 5 refills Last labs--08/31/21 documented in this encounter [facility] 08-26-2021 Miscellaneous Notes Returned patient's phone call with Dr. Montelongo regarding patient's concerns. Dr. Montelongo instructed patient to continue with ENT appt scheduled for Sunday and to call back with an update. Patient called stating she is having problems swallowing. Contacted her family medicine doctor and states she she was referred to ENT but states was told to call Dr Montelongo regarding issue. Patient was advised message will be sent requesting a call back.. Patient call back number: [phone] documented in this encounter [facility] 08-26-2021 Miscellaneous Notes Patient notified via [employer] message. Mary Martinez MA Agree with statement below. Please assist patient in getting STAT appointment with surgeons office. Thank you, Ivett Duncan APRN.HUMAN RESOURCES COMPLIANCE MANAGER Spoke to Dr. Avendaño's nurse. Nurse advises they can still see patient in office however d/t to recent thyroidectomy Dr. Avendaño will still refer patient back to surgeon's office to F/U for the dysphagia. [facility] called and was asking about Pts paperwork. They wanted to know if Pt had visit with surgeon to discuss this issues. Told them that Pt had Tele health appointment with surgeon. They were saying ENT said that Pt needed to see surgeon and not them. Pt ENTs MA through to Juwan Mercado's office. Cardiology consult faxed on 08/22/2021. Informed patient to contact [facility] to schedule an appointment. ENT consult faxed today 08/24/2021 to [facility]. Marie Lynn Ma Please fax patient's ENT consult to [facility]. Please also fax her previous cardiology consult, which I placed on 08/11, to [facility]. Juwan Mercado APRN.CNP Please see pt message and advise documented in this encounter [facility] 08-19-2021 History of Presen t illness Narrative Chief Complaint Patient presents with: Difficulty Swallowing: x1 week, had no difficulty swallowing right after surgery HPI Lisandro De La Rosa is a 46 year old female who presents here today for Above Complaints.. Today: Had a telephone appointment with her surgeon today. For the past week, has been having difficulty swallowing. Tries and tries, and finally food will down. Literally is close to choking. This past February, felt like possibly having a heart attack, hurt very bad from one shoulder to another. Hasn't been eating unless is home with her. Can swallow saliva fine. Only happens with solid foods. No heartburn. Past medical history, appointments, medications, allergies reviewed. Previous Medical History PAST MEDICAL HISTORY Diagnosis Date Asthma Constipation Migraines Scoliosis Thyroid nodule 02/2021 Previous Surgical History PAST SURGICAL HISTORY Procedure Laterality Date BACK SURGERY HX BREAST SURGERY HX augmentation SECTION HX SECTION HX HYSTERECTOMY HX LAVH PAST SURGICAL HISTORY OF breast augmentation PAST SURGICAL HISTORY OF cyst removed from RT. wrist Family History FAMILY HISTORY Problem Relation Age of Onset other (other) Mother breast issues Cervical Cancer Sister other (low platelets) Sister Systemic Lupus Erythematosus Sister Breast Cancer Other both sides of family Patient Allergies ALLERGIES No Known Allergies Current Medications Current Outpatient Medications on File Prior to Visit Medication Sig levothyroxine (SYNTHROID) 125 mcg tablet Take 1 tablet by mouth once daily. albuterol HFA (VENTOLIN HFA) 90 mcg/actuation inhaler Inhale 2 Puffs as instructed every 4 hours as needed for wheezing/shortness of breath. montelukast (SINGULAIR) 10 mg tablet Take 1 tablet by mouth daily at bedtime. ciiaeqzheo-wpxclemf-dwkouvexre (BREZTRI) 160-9-4.8 mcg/actuation HFA aerosol inhaler Inhale 2 Puffs as instructed twice daily. brjoigo-qqirughnf-qquileq D3 (CALCIUM 500+D) 500 mg-5 mcg (200 unit) per tablet Take one tablet 3 times daily (lunch, dinner, before bed), AND as needed every 1 hour for numbness/tingling (signs of low calcium). (Patient not taking: Reported on 08/19/2021 ) acetaminophen 300 mg-caffeine 40 mg-butalbital 50 mg (FIORICET) per capsule Take 1 capsule by mouth every 4 hours as needed. Current Facility-Administered Medications on File Prior to Visit Medication perflutren lipid microspheres 1.3 mL in NaCl (PF) 0.9% 10 mL injection (DEFINITY) sodium chloride 0.9 % (flush) 10 mL (BD POSIFLUSH) Social History Social History Tobacco Use Smoking status: Current Every Day Smoker Packs/day: 0.50 Years: 30.00 Pack years: 15.00 Types: Cigarettes Smokeless tobacco: Never Used Vaping Use Vaping Use: Never used Substance Use Topics Alcohol use: Yes Comment: occasionally Drug use: No Review of Symptoms REVIEW OF SYSTEMS See HPI, otherwise negative EXAM: BP 102/60 (BP Site: Left Arm, BP Position: Sitting, BP Cuff Size: Regular Adult) Pulse 80 Temp 36.8 C (98.2 F) (Temporal) Wt 73.9 kg (163 lb) LMP (LMP Unknown) SpO2 96% BMI 28.87 kg/m General Appearance: Well appearing, alert, in no acute distress, well-hydrated, well nourished.. Skin: Skin color, texture, turgor normal, no suspicious rashes or lesions. Head: Normocephalic, no masses, lesions, tenderness or abnormalities. Oropharynx: Lips, mucosa, and tongue normal, teeth and gums normal, oropharynx normal. Neck: Supple, no adenopathy; thyroid symmetric, normal size, no bruits. Positive for recent thickened vertical scar to lower anterior neck. Lungs: Lungs clear to auscultation. No wheezing, rhonchi, rales.. Heart: RRR without murmur, gallop, or rubs. No ectopy. Lymph Nodes: No cervical lymphadenopathy and No supraclavicular lymphadenopathy. Health Maintenance List COVID-19 VACCINE(1) Never done SPIROMETRY Never done HEPATITIS C SCREENING Never done HIV SCREENING Never done DTAP,TDAP,TD(1 - Tdap) Never done ONE PNEUMOVAX PRIOR TO AGE 65 Never done PAP TESTING Never done HPV TESTING Never done COLORECTAL CANCER SCREENING Never done INFLUENZA(Season Ended) due on 12/15/2021 DEPRESSION SCREENING due on 02/01/2022 ANNUAL PCP TEAM CHRONIC DISEASE VISIT due on 02/02/2022 MAMMOGRAM due on 03/08/2022 DIABETES SCREEN due on 06/16/2024 LIPID SCREEN due on 03/17/2026 MENINGOCOCCAL CONJUGATE Aged Out Data reviewed Previous records, office notes ASSESSMENT/PLAN: 1. Sensation of swollen throat - ICD9: 784.99, ICD10: R68.89 (primary diagnosis) Steroid to decrease possible swelling following thyroidectomy. Will contact the office in 3 days with update. If no improvement with Prednisone, will consider GI vs ENT consult. - PREDNISONE 10 MG TABLET 2. Graves disease - ICD9: 242.00, ICD10: E05.00 Recheck thyroid lab work in 3 weeks, per request from surgeon. - TSH BLD - T3 BLD - T4 FREE/FREE THYROX - T3 FREE BLD 3. Thyroid nodule - ICD9: 241.0, ICD10: E04.1 Recheck thyroid lab work in 3 weeks, per request from surgeon. - TSH BLD - T3 BLD - T4 FREE/FREE THYROX - T3 FREE BLD 4. Abnormal EKG - ICD9: 794.31, ICD10: R94.31 WNL today - ECG COMPLETE 5. Leukocytosis, unspecified type - ICD9: 288.60, ICD10: D72.829 Prior to thyroidectomy surgery. - CBC Juwan Mercado APRN.HUMAN RESOURCES COMPLIANCE MANAGER documented in this encounter [facility] 08-19-2021 Miscellaneous Notes Noted, thank you. Juwan Mercado APRN.CNP Pt called in and states she is having problems swallowing x 1 week and now to the point when eating a piece of corn it is giving her problems. Pt states 3 weeks ago she had a total thyroidectomy done. She was doing fine till 1 week ago. Then she states started having problems swallowing. She had a video/phone apt with her surgeon today and they wanted her to see her pcp. Apt booked for Sunday has been changed to today because of her swallowing getting worse. Sarah Carmichael LPN documented in this encounter [facility] 08-19-2021 History of Presen t illness Narrative Jennifer Montelongo M.D. Department of Endocrine Surgery Endocrinology Metabolism [place] [address], [place] [address] ENDOCRINE SURGERY POST-OP PHONE VISIT Procedure: total thyroidectomy Date of Procedure: 07/29/21 AM labs: Ca 9.6, PTH 19 Pathology: Benign - Follicular nodular disease Interval History: feels great. Started having dysphagia to solid food ~ 1 Week ago. No parasthesias. PE (phone only); voice strong Assessment/Plan: doing very well. She will call her PCP to be evaluated for new dysphagia. It is possible the dysphagia is due to post-op swelling, however there was a delay of 2+ weeks between surgery and development of symptoms. TSH per PCP in ~ 3 weeks. Jennifer Montelongo MD FACS Department of Endocrine Surgery Endocrinology & Metabolism [place] [facility] documented in this encounter [facility] 08-03-2021 Miscellaneous Notes Patient notified of benign surgical pathology results. Patient instructed to call back to the office with any further questions. Sagrario Reyes RN documented in this encounter [facility] 07-30-2021 Note HNO ID: [id number] Author: Faith Sequeira MD Service: Endocrine Surgery Author Type: Physician Type: Progress Notes Filed: 07/30/2021 8:44 AM Note Text: ENDOCRINE SURGERY PROGRESS NOTE NAME: Lisandro De La Rosa July 30, 2021 8:44 AM 1 Day Post-Op AANDP: Lisandro De La Rosa is a 46 year old female s/p thyroidectomy. Recovering expectedly with no evidence of hematoma formation, symptomatic hypocalcemia or voice changes/hoarseness. No swallowing issues. S: No acute events since OR. No perioral numbness/tingling. No hoarseness/difficulty swallowing. No difficulty breathing/chest pain. No hematoma. Pain well controlled. On exam: BP 104/52 Pulse 73 Temp 36.7 ?C (98.1 ?F) (Oral) Resp 20 LMP (LMP Unknown) SpO2 93% Gen: NAD. Pleasant and cooperative. CV: Extremities warm and well perfused, pulse regular Pulm: No increased work of breathing on RA. Equal chest rise. Abs: Soft, ND, NT Neck incision clean/dry/intact, no ecchymosis/signs of swelling No Drain Current Facility-Administered Medications Medication Dose Route Frequency Provider Last Rate Last Admin - albuterol 2.5 mg /3 mL (0.083 %) 2.5 mg (PROVENTIL) 2.5 mg INHALATION q 4 H while awake Shruthi Mar MD 2.5 mg at 07/29/211954 - fluticasone-vilanterol 100-25 mcg/dose 1 Inhalation (BREO ELLIPTA) 1 Inhalation INHALATION DAILY Shruthi Mar MD - montelukast 10 mg tab(s) (SINGULAIR) 10 mg ORAL AT BEDTIME Shruthi Mar MD 10 mg at 07/29/212009 - sodium chloride 0.9 % (flush) 3-5 mL (BD POSIFLUSH) 3-5 mL INTRAVENOUS q 12 H Shruthi Mar MD 4 mL at 07/30/21 0900 - NaCl 0.9% iv flush bag 20 mL INTRAVENOUS PRN Shruthi Mar MD - dextrose 5% in NaCl 0.45% with 20 mEq/L KCl iv infusion 75 mL/hr INTRAVENOUS CONTINUOUS Shruthi Mar MD - sodium chloride 0.9 % (flush) 2-10 mL (BD POSIFLUSH) 2-10 mL INTRAVENOUS q 12 H Shruthi Mar MD 5 mL at 07/30/21 0747 - ibuprofen 600 mg tab(s) (MOTRIN) 600 mg ORAL q 6 H PRN Shruthi Mar MD 600 mg at 07/30/21 0109 - acetaminophen 500 mg tab(s) (TYLENOL) 500 mg ORAL q 4 H PRN Shruthi Mar MD 500 mg at 07/30/21 0525 - ilgbuqj-mngzkqina-bfispwn D3 500 mg-5 mcg (200 unit) 1 tablet 1 tablet ORAL TID Shruthi Mar MD 1 tablet at 07/30/21 0747 - calcium carbonate 500 mg chewable tab(s) (TUMS) 500 mg ORAL q 1 H PRN Shruthi Mar MD - benzocaine-menthol 1 Lozenge (CEPACOL) 1 Lozenge MUCOUS MEMBRANE (TOPICAL MOUTH AND THROAT) q 2 H PRN Shruthi Mar MD 1 Lozenge at 07/30/21 0525 - phenol 1 [place] (CHLORASEPTIC) 1 [place] MUCOUS MEMBRANE (TOPICAL MOUTH AND THROAT) q 2 H PRN Shruthi Mar MD - ondansetron (PF) 4 mg injection (ZOFRAN) 4 mg INTRAVENOUS q 6 H PRN Shruthi Mar MD - levothyroxine 125 mcg tab(s) (SYNTHROID) 125 mcg ORAL DAILY (6 AM) Shruthi Mar MD 125 mcg at 07/30/21 0525 - acetaminophen 325 mg-caffeine 40 mg-butalbital 50 mg 1 tablet (FIORICET) 1 tablet ORAL q 4 H PRN Shruthi Mar MD Date 07/29/21 0700 - 07/30/21 0659 07/30/21 0700 - 07/31/21 0659 Shift [id number] 0927-4164 0787-2715 24 Hour Total 7177-7414 7274-5985 9859-4628 24 Hour Total INTAKE IV 1300 1300 Volume (mL) (lactated ringers iv infusion) 1300 1300 Shift Total 1300 1300 OUTPUT Shift Total Weight (kg) Recent Labs 07/30/21 0431 CA 9.5 Calcium, Total Date Value Ref Range Status 07/30/2021 9.5 8.5 - 10.2 mg/dL Final TSH Date Value Ref Range Status 06/16/2021 0.461 0.270 - 4.200 mIU/L Final Comment: If the patient is , TSH reference range varies by gestational period: First Trimester (weeks 9-12): 0.180-2.990 mIU/L Second Trimester: 0.110-3.980 mIU/L Third Trimester: 0.480-4.710 mIU/L Joel Luther et al. A Practical Approach for the Verifications and Determination of Site- and Trimester-Specific Reference Intervals for Thyroid Function tests in . Thyroid, 2019:29:3:412-420. Nuno Horn et al. 2017 Guidelines of the [place] [employer] for the Diagnosis and Management of Thyroid Disease during and the . Thyroid, 2017:27:3:315-389. PTH, Intact Date Value Ref Range Status 07/30/2021 19 15 - 65 pg/mL Final *A review of daily goals, interventions, and plan of care with the multidisciplinary team and patient has been conducted. The patient?s concerns have been addressed and she agrees to proceed with today?s plan of care. Faith Sequeira MD Endocrine Surgery [id number] [facility] 07-29-2021 Note HNO ID: [id number] Author: Shruthi Mar MD Service: Endocrine Surgery Author Type: Physician Type: Progress Notes Filed: 07/29/2021 3:18 PM Note Text: ENDOCRINE SURGERY PROGRESS NOTE NAME: Lisandro De La Rosa July 29, 2021 3:17 PM Day of Surgery AANDP: Lisandro De La Rosa is a 46 year old female s/p total thyroidectomy for GRaves'. - Neuro: prn pain control, tylenol/ibuprofen - Cardiopulm: HDS, pulse-ox, monitor for difficulty breathing, cepacol/chloraseptic for sore throat - FEN/GI: Regular diet. AM Labs. - : Voiding - ID: ABX: none indicated - Heme: monitor for signs of hematoma - Endo: monitor for tetany/tingling/signs of hypocalcemia, levothyroxine 125 daily. tid calcium carbonate/vitamin D and prn Tums for numbness - DVT ppx: SCDs only - Dispo: Anticipate discharge in am. Will need prescription for Calcitriol 0.25 mcg bid if morning PTH <10. Discussed with Dr. Montelongo. S: No acute events since OR. No perioral numbness/tingling. No hoarseness/difficulty swallowing. No difficulty breathing/chest pain. On exam: BP 106/76 Pulse 76 Temp 36.6 ?C (97.9 ?F) (Temporal) Resp 15 LMP (LMP Unknown) SpO2 93% Gen: NAD CV: extremities warm and well perfused, pulse regular Pulm: no increased work of breathing on room air Neck incision clean/dry/intact, no ecchymosis/signs of swelling Current Facility-Administered Medications Medication Dose Route Frequency Provider Last Rate Last Admin - lactated ringers iv infusion 5-30 mL/hr INTRAVENOUS CONTINUOUS Juan Short MD - meperidine (PF) 25 mg injection (DEMEROL) 25 mg INTRAVENOUS q 5 MIN PRN Juan Short MD 25 mg at 07/29/21 1503 - meperidine (PF) 12.5 mg injection (DEMEROL) 12.5 mg INTRAVENOUS q 10 MIN PRN Juan hSort MD 12.5 mg at 07/29/21 1440 - benzocaine-menthol 1 Lozenge (CEPACOL) 1 Lozenge MUCOUS MEMBRANE (TOPICAL MOUTH AND THROAT) q 2 H PRN Shruthi Mar MD 1 Lozenge at 07/29/21 1513 - phenol 1 [place]well (CHLORASEPTIC) 1 [place] MUCOUS MEMBRANE (TOPICAL MOUTH AND THROAT) q 2 H PRN Shruthi Mra MD 1 [place]well at 07/29/21 1513 Date 07/28/21 1500 - 07/29/21 0659(Not Admitted) 07/29/21 0700 - 07/30/21 0659 Shift 7400-7844 7955-0413 24 Hour Total 5992-7414 1392-1991 7304-8462 24 Hour Total INTAKE IV 1300 1300 Volume (mL) (lactated ringers iv infusion) 1300 1300 Shift Total 1300 1300 OUTPUT Shift Total Weight (kg) Calcium, Total Date Value Ref Range Status 06/16/2021 9.5 8.5 - 10.2 mg/dL Final TSH Date Value Ref Range Status 06/16/2021 0.461 0.270 - 4.200 mIU/L Final Comment: If the patient is , TSH reference range varies by gestational period: First Trimester (weeks 9-12): 0.180-2.990 mIU/L Second Trimester: 0.110-3.980 mIU/L Third Trimester: 0.480-4.710 mIU/L Joel Luther et al. A Practical Approach for the Verifications and Determination of Site- and Trimester-Specific Reference Intervals for Thyroid Function tests in . Thyroid, 2019:29:3:412-420. Nuno Horn, et al. 2017 Guidelines of the [place] [employer] for the Diagnosis and Management of Thyroid Disease during and the . Thyroid, 2017:27:3:315-389. No results found for: PTH *A review of daily goals, interventions, and plan of care with the multidisciplinary team and patient has been conducted. The patient?s concerns have been addressed and he/she agrees to proceed with today?s plan of care. Shruthi Mar MD Endocrine Surgery Fellow [id number] [facility] 07-29-2021 Note HNO ID: [id number] Author: Luz Abreu APRN.CORDELIA Service: ? Author Type: Nurse Theater Teacher Type: Anesthesia Procedure Notes Filed: 07/29/2021 12:14 PM Note Text: ANESTHESIOLOGY PROCEDURE NOTE Airway General Information Procedure Start Time/Medication Administration: 07/29/2021 11:43 AM Patient location during procedure: OR Timeout Performed Pre-procedure: timeout performed Patient identity confirmed: arm band and patient Staffing Anesthesiologist: Juan Short MD BOILERMAKER: Luz Abreu APRN.BOILERMAKER Performed by: CORDELIA Indications and Patient Condition Preoxygenated: yes Patient position: sniffing Difficult Mask: No Indications for airway management: anesthesia anesthesia circuit Method: asleep Cricoid Pressure: Yes Airway Accessory: oral airway Final Airway Details Final airway type: endotracheal airway Final Endotracheal Airway: ETT Cuffed: yes Successful intubation technique: video laryngoscopy Devices used: Kyle Endotracheal tube insertion site: oral Blade: [place]ade size: #3 ETT size (mm): 7.0 Measured from: lips Measurement (cm): 22 Placement verified by: chest auscultation and capnometry Cormack-Lehane Classification: grade I - full view of glottis Number of attempts at approach: 1 Airway not difficult SIGNATURE: Luz Abreu APRN.BOILERMAKER PATIENT NAME: Lisandro De La Rosa DATE: July 29, 2021 TIME: 12:12 PM CSN: [id number] [facility] 07-26-2021 Miscellaneous Notes Opened in error documented in this encounter [facility] 07-25-2021 History of Presen t illness Narrative Dr. Montelongo spoke with Dr Peggy Cardona and pt is not having any chest pain or symptoms in regards to her EKG. If pt is asymptomatic , pt does not need to see cardiology preop. Berenice Olmedo RN documented in this encounter [facility] 07-15-2021 History of Presen t illness Narrative Radiology Service Progress Note PATIENT NAME: Lisandro De La Rosa DATE OF SERVICE: July 15, 2021 TIME: 4:09 PM PATIENT IDENTITY VERIFICATION COMPLETED USING TWO (2) IDENTIFIERS: Name and Date of confirmed by patient verbally. FALL SCREENING: Has the patient had 2 falls in the last year or 1 fall with injury or currently using an Ambulatory Assistive Device (Walker, Cane, Wheelchair, Crutches, etc.)? No PATIENT GENDER DATA: Female. status: : No status: NO. PATIENT RELEVANT IMPLANT DATA REVIEWED: Not Applicable RADIOLOGY DEPARTMENT: General X-ray: Exam(s) Completed: Chest X-Ray PERIPHERAL IV DATA: Not applicable SIGNED BY: RT David(R) July 15, 2021 4:09 PM documented in this encounter [facility] 07-15-2021 Instructions Ketty Reed APRN.HUMAN RESOURCES COMPLIANCE MANAGER - 07/15/2021 3:36 PM EDT PATIENT PREOPERATIVE INSTRUCTIONS Jennifer Montelongo MD has scheduled you for your procedure at this surgery center: [facility]: [phone] -- [id number] [place] [address]. Please read below carefully for your personalized instructions. Dietary Restrictions: - No solid food after midnight. - You may have 12 ounces of clear liquids (water, clear juices such as apple juice or gatorade, carbonated beverages, clear tea, black coffee, jello) until 2 hours before scheduled arrival at facility. No red/purple coloring and no creamer/sugar Medications: Unless instructed differently below, stay on all of your medications until your surgery. Approved medications to take the morning of surgery with a sip of water: Albuterol, Breztri If you start any new medications after today's visit, please contact the surgeon's office. Blood Thinning Medications: - Stop NSAIDS (Ibuprofen, Advil, Aleve, Motrin, Celebrex, Mobic, etc.) 7 days before surgery, as directed by your surgeon. - Stop Aspirin 7 days before surgery, as directed by your surgeon. - Stop Vitamin E, ALL multi-vitamins, herbals and dietary supplements 7 days before surgery. - You may take Tylenol (Acetaminophen) or any of your pain medications that do not contain aspirin or NSAIDS as needed. Important Reminders: - If you use CPAP/BIPAP, bring the machine with you to the surgery center. - If you are prescribed inhalers for breathing, continue using them. - Candy, mints, and tobacco products are NOT permitted the morning of surgery. - Hearing aids, dentures and glasses may be worn the morning of surgery. - NO jewelry, body piercings, makeup, hairpins or contacts are to be worn the day of surgery. If you develop symptoms such as a fever, cold, or flu, or have other changes to your health within TWO DAYS of scheduled surgery or the morning of surgery, please contact the surgery center above. Personal Belongings: -Please have photo ID and insurance cards. -If you do not have a copy of advance directives on file with us, please bring a copy with you on the day of surgery. - Leave ALL valuables and money at home or with family members. For Outpatient Procedures: - YOU MUST HAVE A RESPONSIBLE CYLINDER INSPECTOR TAKE YOU HOME. A PATTERN CHANGER AND REPAIRER OR INDEPENDENT FREIGHT AGENT CANNOT BE MADE A RESPONSIBLE CYLINDER INSPECTOR. - We recommend that a responsible person stays with you overnight to take care of you. - You cannot stay in a hotel alone after outpatient surgery. You will not be permitted to have your surgery, if you do not have someone to take care of you. Arrival Time for Surgery: - The Surgery Center or hospital where you are having surgery will call the afternoon before surgery (or Sunday for Sunday surgery) with a scheduled arrival time. - If you have not heard by 4 pm, please contact the surgery center above. Please be aware that emergency situations arise, which may delay or change your surgical time. If this happens, we will notify you as soon as possible and regret any inconvenience. If you already have an Advance Directive, please fax a copy to [phone] or email to for it to be added to your chart. If you do not have an Advance Directive, you can find the appropriate form and more information at [email or web address]. We recommend that you complete the Advance Directive form found on the website and bring it with you the day of your surgery. It can be witnessed and scanned into your chart that day. Ketty Reed APRN.REYNA documented in this encounter [facility] 07-15-2021 History and physical note HISTORY AND PHYSICAL EXAMINATION SERVICE DATE: 07/15/2021 SERVICE TIME: 3:32 PM PRIMARY CARE PHYSICIAN: Juwan Mercado APRN.CNP REASON FOR VISIT: Lisandro De La Rosa is a 46 year old female who is scheduled for Procedure(s): THYROIDECTOMY TOTAL (Bilateral) at the request of Dr. Jennifer Montelongo for consultation. My final recommendation will be communicated back to the requesting physician by way of shared medical record or letter. Subjective The patient has the following: ACTIVE PROBLEM LIST Chronic Pain Syndrome S/P Lumbar Discectomy Multiple Thyroid Nodules Low Serum Thyroid Stimulating Hormone (Tsh) COVID-19 Immunization Status Overdue - COVID-19 VACCINE (1) Overdue - never done No completion, postpone, frequency change, or communication history exists for this topic. CHIEF COMPLAINT: Pre-op exam HPI: SHAWN is a 46 yo seen for PAC due to scheduled above surgery because of Graves disease. 06/16/2021 Dr. Montelongo History of Present Illness: Lisandro De La Rosa is a 45 year old female referred by Dr. 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 Hyperthyroidism present since at least 2017. She c/o weight fluctuations, insomnia, fatigue, and vision changes. She has not yet seen an agricultural extension specialist. Most recent TFTs are normal. She is currently not taking anti-thyroid medications. Regarding etiology of hyperthyroidism, + TSH receptor antibodies suggestive of Graves disease, but iodine uptake heterogeneous and suggestive of toxic MNG. TSI negative. Ultrasound shows two nodules in the left lobe - 2.1 and and 1.0 cm - and FNA of both was benign. My findings and recommendations will be communicated by way of the shared medical record. ENDOCRINE SURGICAL HISTORY: New or established diagnosis: established Prior history of radiation treatment to the neck: no Known thyroid disease: yes Known parathyroid disease: no Prior neck operations: no Family history of hypercalcemia: no Family history of thyroid cancer: no Family history of other endocrine tumors: no Pertinent medications (levothyroxine, blood thinners, calcium, diuretics, lithium, Sensipar, biotin): metoprolol REVIEW OF SYSTEMS: General: No weight loss, malaise or fevers. 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 No neurological symptoms or problems. Positive for: headaches (migraines, otc analgesics as needed). Respiratory: Positive for: asthma (on rx and rx as needed) and tobacco use (0.5ppd/25+ years). Negative for: COPD, pneumonia within 6 weeks, URI < 2 weeks and obstructive sleep apnea. Cardiovascular: No history of HTN requiring medication, no history of angina, CHF, TX, cardiac surgery or stents. Denies rest pain, gangrene or revascularization/amputation for PVD. No history of cardiovascular symptoms or problems. GI: No history of GI symptoms or problems. No history of esophageal varices, recent ascites, or ETOH greater than 2 drinks per day. : No history of dysuria, frequency or incontinence, stones or chronic kidney disease. No difficulty urinating, nocturia > 1 time per night or hematuria. TEACHER COUNSELOR: Negative for abnormal vaginal bleeding, abnormal vaginal discharge. Endocrine: SEE HPI Negative for: diabetes mellitus. Hematology: No history of bleeding or clotting disorder. Patient is not taking anti-coagulation or platelet medications. No history of hematological symptoms or problems. Oncology: No history of CA metastasis, chemo within 30 days, or radiotherapy within 90 days. No history of oncological symptoms or problems. Psych: No history of psychiatric symptoms or problems. Musculoskeletal: Positive for: back pain (s/p lumbar laminectomy). Skin: Negative for lesions, rash and itching. PAST MEDICAL HISTORY Diagnosis Date Asthma Constipation Migraines Scoliosis Thyroid nodule 02/2021 PAST SURGICAL HISTORY Procedure Laterality Date BACK SURGERY HX BREAST SURGERY HX augmentation SECTION HX SECTION HX HYSTERECTOMY HX LAVH PAST SURGICAL HISTORY OF breast augmentation PAST SURGICAL HISTORY OF cyst removed from RT. wrist FAMILY HISTORY Problem Relation Age of Onset other (other) Mother breast issues Cervical Cancer Sister other (low platelets) Sister Systemic Lupus Erythematosus Sister Breast Cancer Other both sides of family Social History Tobacco Use Smoking status: Current Every Day Smoker Packs/day: 0.50 Years: 30.00 Pack years: 15.00 Types: Cigarettes Smokeless tobacco: Never Used Vaping Use Vaping Use: Never used Substance Use Topics Alcohol use: Yes Comment: occasionally Drug use: No Prior to Admission medications as of 07/15/21 7722 Medication Sig Last Dose Taking iodine strong (LUGOLS) 5 % solution Take 0.3 mL by mouth three times daily for 10 days. Discard remainder. Taking Yes albuterol HFA (VENTOLIN HFA) 90 mcg/actuation inhaler Inhale 2 Puffs as instructed every 4 hours as needed for wheezing/shortness of breath. Taking Yes montelukast (SINGULAIR) 10 mg tablet Take 1 tablet by mouth daily at bedtime. Taking Yes weizjsrpsx-yiglvoiv-ltmfllaile (BREZTRI) 160-9-4.8 mcg/actuation HFA aerosol inhaler Inhale 2 Puffs as instructed twice daily. Taking Yes acetaminophen 300 mg-caffeine 40 mg-butalbital 50 mg (FIORICET) per capsule Take 1 capsule by mouth every 4 hours as needed. Taking Yes diclofenac potassium (CATAFLAM) 50 mg tablet Take 1 tablet by mouth three times daily as needed (pain/migraine). Take with food. metoprolol succinate ER (TOPROL XL) 25 mg 24 hr tablet Take 1 tablet by mouth once daily. montelukast sodium (SINGULAIR ORAL) Take by mouth. ALBUTEROL SULFATE (PROVENTIL INHALATION) Inhale 2 Puffs as instructed as needed. Patient not taking: Reported on 07/15/2021 Not Taking No medication comments found. ALLERGIES No Known Allergies Objective PHYSICAL EXAM: General: alert and oriented (x3) and healthy appearance. Pertinent negatives noted - not distressed. Skin: normal color, no rash or lesions. HEENT: EOM intact and pupils equal round. Pertinent negatives noted - no carotid bruit. Cardiovascular: regular rate and rhythm, normal S1 and S2, no rub, murmurs, or gallop. Respiratory: normal breath sounds, no wheezes or crackles. No chest wall deformity or tenderness. Abdomen: soft. Pertinent negatives noted - not tender. Extremities: no deformity, no edema or tenderness, no joint swelling or clubbing. Neurological: normal cognition and motor skills. Gait normal. No weakness or sensory deficit. PAIN ASSESSMENT: VITALS: BP 116/78 Pulse 93 Temp (Src) 98.3 (Temporal) Resp 18 Ht 5' 3 (1.60m) Wt 164 lb (74.4kg) SpO2 98% BMI 29.06 kg/(m^2). Diagnostic tests reviewed for today's visit: Lab Value Units Date High Low HB 13.1 g/dL 06/16/2021 15.5 11.5 HB 13.4 g/dL 03/28/2021 15.5 11.5 HCT 40.1 % 06/16/2021 46.0 36.0 HCT 39.5 % 03/28/2021 46.0 36.0 WBC 13.06 k/uL 06/16/2021 11.00 3.70 WBC 12.14 k/uL 03/28/2021 11.00 3.70 PLT 349 k/uL 06/16/2021 400 150 PLT 365 k/uL 03/28/2021 400 150 NA 141 mmol/L 06/16/2021 144 136 NA 138 mmol/L 03/17/2021 144 136 K 4.0 mmol/L 06/16/2021 5.1 3.7 K 3.8 mmol/L 03/17/2021 5.1 3.7 GLUC 80 mg/dL 06/16/2021 99 74 GLUC 87 mg/dL 03/17/2021 99 74 BUN 10 mg/dL 06/16/2021 21 7 BUN 10 mg/dL 03/17/2021 21 7 CREAT 0.85 mg/dL 06/16/2021 0.96 0.58 CREAT 0.84 mg/dL 03/17/2021 0.96 0.58 PTSEC No results within date range. INR No results within date range. APTT No results within date range. ALT 8 U/L 03/17/2021 38 7 AST 11 U/L 03/17/2021 35 13 TBILI 0.3 mg/dL 03/17/2021 1.3 0.2 TSH 0.461 mIU/L 06/16/2021 4.200 0.270 TSH 0.485 mIU/L 04/20/2021 4.200 0.270 Lab Value Units Date High Low HCGQT No results within date range. UHCG No results within date range. HCG, BODY* No results within date range. Lab Value Units Date High Low ABORHD No results within date range. ABSCREEN No results within date range. Hemoglobin A1C (%) Date Value 03/17/2021 5.2 Recent Results (from the past 8760 hour(s)) ECG COMPLETE Collection Time: 07/15/21 3:21 PM Result Value Ventricular Rate 70 Atrial Rate 70 P-R Interval 152 QRS Duration 84 QT Interval 408 QTC Calculation (Bazett) 440 Calculated P Bohannon 57 Calculated R Bohannon 27 Calculated T Bohannon 42 Impression NORMAL SINUS RHYTHM POSSIBLE LEFT ATRIAL ENLARGEMENT ANTEROSEPTAL MYOCARDIAL INFARCTION , AGE UNDETERMINED ABNORMAL ECG Recent Results (from the past 30131 hour(s)) ECHO Collection Time: 02/17/21 2:51 PM Impression CONCLUSIONS: - Exam indication: Chest Pain - The left ventricle is normal in size. Left ventricular systolic function is normal. EF = 62 5% (2D biplane) Normal left ventricular diastolic function. - The right ventricle is normal in size. Right ventricular systolic function is normal. - There are no significant valvular abnormalities. - The patient has not had a prior [facility] echocardiographic exam for comparison. Assessment Asthma Assessment: controlled on daily rx and as needed Migraines Assessment: otc analgesics as needed S/P lumbar discectomy Assessment: hx, chronic LBP Leukocytosis Assessment: chronic, following Dr. Jang, hematology Hemoglobin (g/dL) Date Value 06/16/2021 13.1 03/28/2021 13.4 Hematocrit (%) Date Value 06/16/2021 40.1 03/28/2021 39.5 WBC (k/uL) Date Value 06/16/2021 13.06 03/28/2021 12.14 Current smoker Assessment: 0.5ppd/25+years, denies COPD,+asthma METS: Climb a flight of stairs or walk up a hill (5.50 METs) DASI Score: 5.5; Patient denies any chest pain or undue shortness of breath with the above physical activity. Clinical Frailty Scale: 3. Well, with treated comorbid disease ASA Class: 2 ANESTHESIA FINDINGS: Intubation History: No history of difficult intubation Significant Anesthesia Considerations: none Airway History: No history of difficult airway [id number] Score: Age: <65 Sex: Female CHF history: No Hypertension history: No Stroke/TIA/thromboembolism history: No Vascular disease history: No Diabetes history: No Score: 1 I - PHYSICAL EVALUATION AIRWAY Tracheostomy tube not present Mallampati: I. TM distance: >3 FB. Neck ROM: full ROM without neurological symptoms. Mouth opening: adequate. Short neck: no. Thick neck: no DENTAL Dentures, upper: complete. Dentures, lower: complete. II - ANESTHESIA PLAN ASA Score: 2 Anesthetic Plan: other Anesthetic plan additional comments: *PACC/TCI - anesthesia choice. Informed Consent Anesthetic risks, benefits, alternatives, personnel and consent discussed: yes. Patient / Responsible Green Party agrees to proceed: yes Patient / Surrogate agrees to blood products: blood products not planned Prepared for Surgery: optimally prepared for surgery, pending (see comment). COVID, CXR and ekg CONSULTS: Patient does not require consults for optimization at this time The Following Tests/Procedures Have Been Initiated: No orders of the defined types were placed in this encounter. Planned Anesthetic: other anesthesia choice Instructions Given to Patient: Instructions located in the after visit summary. Patient given verbal and written preop instructions and voices comprehension and compliance. SIGNATURE: Ketty Reed APRN.CNP PATIENT NAME: Lisandro De La Rosa DATE: July 15, 2021 TIME: 3:32 PM PAGER/CONTACT #: documented in this encounter [facility] Preoperative examination Preoperative examination, unspecified Encounter for screening for COVID-19 Preoperative examination Preoperative examination, unspecified Graves disease Toxic diffuse goiter without mention of thyrotoxic crisis or storm [facility] Diagnosis Graves disease- Primary Toxic diffuse goiter without mention of thyrotoxic crisis or storm Preoperative examination Preoperative examination, unspecified Encounter for screening for COVID-19 Preoperative examination Preoperative examination, unspecified Graves disease Toxic diffuse goiter without mention of thyrotoxic crisis or storm [facility] Diagnosis Graves disease- Primary Toxic diffuse goiter without mention of thyrotoxic crisis or storm Preoperative examination Preoperative examination, unspecified Encounter for screening for COVID-19 Preoperative examination Preoperative examination, unspecified Graves disease Toxic diffuse goiter without mention of thyrotoxic crisis or storm [facility] Diagnosis S/P complete thyroidectomy- Primary Other postprocedural status [facility] Diagnosis Sensation of swollen throat- Primary Other symptoms involving head and neck Graves disease Toxic diffuse goiter without mention of thyrotoxic crisis or storm Thyroid nodule Nontoxic uninodular goiter Abnormal EKG Nonspecific abnormal electrocardiogram (ECG) (EKG) Leukocytosis, unspecified type [facility] Diagnosis Sensation of swollen throat- Primary Other symptoms involving head and neck S/P complete thyroidectomy Other postprocedural status [facility] Diagnosis S/P complete thyroidectomy- Primary Other postprocedural status [facility]* Diagnosis Scoliosis, unspecified scoliosis type, unspecified spinal region S/P lumbar discectomy Other postprocedural status Degenerative disc disease, lumbar Degeneration of lumbar or lumbosacral intervertebral disc Acute right-sided low back pain with right-sided sciatica Spinal stenosis of lumbar region, unspecified whether neurogenic claudication present [facility] Diagnosis S/P lumbar discectomy- Primary Other postprocedural status Degenerative disc disease, lumbar Degeneration of lumbar or lumbosacral intervertebral disc Spinal stenosis of lumbar region, unspecified whether neurogenic claudication present Scoliosis, unspecified scoliosis type, unspecified spinal region Abnormal EKG Nonspecific abnormal electrocardiogram (ECG) (EKG) [facility] Diagnosis Chronic bilateral low back pain with left-sided sciatica- Primary Bilateral hand numbness Disturbance of skin sensation [facility] Diagnosis Degenerative disc disease, lumbar- Primary Degeneration of lumbar or lumbosacral intervertebral disc S/P lumbar discectomy Other postprocedural status Spinal stenosis of lumbar region, unspecified whether neurogenic claudication present Scoliosis, unspecified scoliosis type, unspecified spinal region Chronic pain syndrome [facility] Diagnosis S/P lumbar discectomy Other postprocedural status Degenerative disc disease, lumbar Degeneration of lumbar or lumbosacral intervertebral disc Spinal stenosis of lumbar region, unspecified whether neurogenic claudication present Scoliosis, unspecified scoliosis type, unspecified spinal region documented in this encounter [facility] [facility] Diagnosis S/P complete thyroidectomy- Primary Other postprocedural status [facility] Diagnosis S/P lumbar discectomy Other postprocedural status Degenerative disc disease, lumbar Degeneration of lumbar or lumbosacral intervertebral disc Spinal stenosis of lumbar region, unspecified whether neurogenic claudication present Scoliosis, unspecified scoliosis type, unspecified spinal region [facility] Diagnosis Loss of balance- Primary Other symptoms involving nervous and musculoskeletal systems Lumbar radiculopathy Thoracic or lumbosacral neuritis or radiculitis, unspecified [facility] Diagnosis Bilateral hand numbness- Primary Disturbance of skin sensation Chronic bilateral low back pain with left-sided sciatica [facility] Diagnosis S/P lumbar discectomy Other postprocedural status Degenerative disc disease, lumbar Degeneration of lumbar or lumbosacral intervertebral disc Spinal stenosis of lumbar region, unspecified whether neurogenic claudication present Scoliosis, unspecified scoliosis type, unspecified spinal region [facility] Diagnosis Chronic bilateral low back pain with left-sided sciatica [facility] Diagnosis Postlaminectomy syndrome- Primary Postlaminectomy syndrome, unspecified region Lumbar spondylosis Lumbosacral spondylosis without myelopathy Chronic bilateral low back pain without sciatica Sacroiliitis (HCC) Sacroiliitis, not elsewhere classified [facility] Diagnosis Lumbar spondylosis- Primary Lumbosacral spondylosis without myelopathy [facility]* Diagnosis Sluggishness- Primary Other alteration of consciousness Degenerative disc disease, lumbar Degeneration of lumbar or lumbosacral intervertebral disc Fatigue, unspecified type Chronic pain syndrome Myalgia Mylagia and myositis, unspecified Arthralgia, unspecified joint [facility] Diagnosis Acute pain of left knee- Primary Acute cough Hx of smoking Personal history of tobacco use, presenting hazards to health [facility]* Diagnosis S/P complete thyroidectomy- Primary Other postprocedural status documented in this encounter [facility] note* Diagnosis S/P complete thyroidectomy Other postprocedural status documented in this encounter [facility] note* Diagnosis Exhaustion- Primary Other malaise and fatigue Fatigue, unspecified type Lack of motivation Bloating Flatulence, eructation, and gas pain Epigastric pain Abdominal pain, epigastric Heartburn Nausea Nausea alone Migraine with aura and without status migrainosus, not intractable Migraine with aura, without mention of intractable migraine without mention of status migrainosus Vitamin D deficiency Unspecified vitamin D deficiency Encounter for vitamin deficiency screening Screening for other and unspecified endocrine, nutritional, metabolic, and immunity disorders Screening for diabetes mellitus Bloating Flatulence, eructation, and gas pain Epigastric pain Abdominal pain, epigastric Heartburn Nausea Nausea alone documented in this encounter [facility] note* Diagnosis Exhaustion- Primary Other malaise and fatigue Fatigue, unspecified type Lack of motivation S/P complete thyroidectomy Other postprocedural status [facility]* Diagnosis Bloating Flatulence, eructation, and gas pain Epigastric pain Abdominal pain, epigastric Heartburn Nausea Nausea alone documented in [facility]* Diagnosis S/P complete thyroidectomy Other postprocedural status documented in [facility]* Diagnosis S/P complete thyroidectomy Other postprocedural status documented in [facility]* Diagnosis S/P complete thyroidectomy Other postprocedural status documented in this [facility]* Diagnosis S/P complete thyroidectomy- Primary Other postprocedural status documented in this [facility]* Diagnosis Chronic bilateral low back pain without sciatica- Primary documented [facility]* Diagnosis Bloating Flatulence, eructation, and gas pain Epigastric pain Abdominal pain, epigastric Heartburn Nausea Nausea alone documented in this encounter [facility] note* Diagnosis Bloating Flatulence, eructation, and gas pain Epigastric pain Abdominal pain, epigastric Heartburn Nausea Nausea alone documented in this encounter [facility] note* Diagnosis Encounter for screening mammogram for breast cancer documented in this encounter [facility] note* Diagnosis Acute pain of left knee Acute cough Hx of smoking Personal history of tobacco use, presenting hazards to health documented in this encounter [facility] note* Diagnosis Abdominal bloating- Primary Flatulence, eructation, and gas pain Bloating Flatulence, eructation, and gas pain Epigastric pain Abdominal pain, epigastric Heartburn Nausea Nausea alone documented in this encounter [facility] note* Diagnosis Encounter for screening mammogram for breast cancer documented in this encounter [facility] for referral (narrative)* Outpatient Procedure (Routine) - Authorized Specialty Diagnoses / Procedures Referred By Contac t Referred To [facility] Diagnoses Abnormal EKG Procedures ECG COMPLETE ECG ROUTINE ECG W/LEAST 12 LDS W/I&R Juwan Mercado APRN.CNP [address] [place] [address] [facility] [place] [address] [place] [address] Referral ID Status Reason Start Date Expiration Date Visits Requested Visits Authorized [id number] Authorized Auto-Generat ed Referral 08/19/2021 08/19/2022 1 1 [facility] for referral (narrative)* Diagnostic Procedure Only (Routine) - Pending Review Specialty Diagnoses / Procedures Referred By Contac t Referred To Contact XR IMAGING Diagnoses Chronic bilateral low back pain with left-sided sciatica Procedures XR SCOLIOSIS PA STAND/LAT 2V RADEX ENTIR THRC LMBR CRV SAC SPI W/SKULL 2/3 VW Francois Desouza MD, PhD [address] [place] [address] Xr Imaging Referral ID Status Reason Start Date Expiration Date Visits Requested Visits Authorized [id number] Pending Review Auto-Generat ed Referral 11/28/2021 12/28/2022 1 1 * Diagnostic Procedure Only (Routine) - Pending Review Specialty Diagnoses / Procedures Referred By Contac t Referred To Contact XR IMAGING Diagnoses Chronic bilateral low back pain with left-sided sciatica Procedures XR LUMBAR MOTION 4V AP/LAT/ FLEX/EXT RADEX SPINE LUMBOSACRAL MINIMUM 4 VIEWS Francois Desouza MD, PhD [address] [facility] [address] Xr Imaging Referral ID Status Reason Start Date Expiration Date Visits Requested Visits Authorized [id number] Pending Review Auto-Generat ed Referral 11/28/2021 12/28/2022 1 1 * MRI/CT (Routine) - Open Specialty Diagnoses / Procedures Referred By Contac t Referred To Contact MR IMAGING Diagnoses Bilateral hand numbness Procedures MRI CERVICAL SPINE WO IVCON MRI SPINAL CANAL CERVICAL W/O CONTRAST MATRL Francois Desouza MD, PhD [address] [facility] [place] [address] Mr Imaging Referral ID Status Reason Start Date Expiration Date V isits Requested Visits Authorized [id number] Open Auto-Generate d Referral 11/28/2021 12/28/2022 1 1 * Physical Therapy (Routine) - Pending Review Specialty Diagnoses / Procedures Referred By Contac t Referred To Contact [facility] Diagnoses Chronic bilateral low back pain with left-sided sciatica Procedures CONSULT TO PHYSICAL THERAPY PHYSICAL THERAPY EVALUATION HIGH COMPLEX 45 MINS Francois Desouza MD, PhD [address] [facility] [address] [facility] [place] [address] [place] [address] Referral ID Status Reason Start Date Expiration Date Visits Requested Visits Authorized [id number] Pending Review Auto-Generat ed Referral 11/28/2021 11/28/2022 1 1 [facility] for referral (narrative)* Diagnostic Procedure Only (Routine) - Pending Review Specialty Diagnoses / Procedures Referred By Contac t Referred To Contact XR IMAGING Diagnoses Chronic bilateral low back pain with left-sided sciatica Procedures XR SCOLIOSIS PA STAND/LAT 2V RADEX ENTIR THRC LMBR CRV SAC SPI W/SKULL 2/3 VW Juwan Mercado APRN.HUMAN RESOURCES COMPLIANCE MANAGER [address] [place] [address] Xr Imaging Referral ID Status Reason Start Date Expiration Date Visits Requested Visits Authorized [id number] Pending Review Auto-Generat ed Referral 12/26/2021 01/25/2023 1 1 * Diagnostic Procedure Only (Routine) - Authorized Specialty Diagnoses / Procedures Referred By Contac t Referred To Contact XR IMAGING Diagnoses Chronic bilateral low back pain with left-sided sciatica Procedures XR LUMBAR MOTION 4V AP/LAT/ FLEX/EXT RADEX SPINE LUMBOSACRAL MINIMUM 4 VIEWS Juwan Mercado APRN.HUMAN RESOURCES COMPLIANCE MANAGER [address] [place] [address] Xr Imaging Referral ID Status Reason Start Date Expiration Date Visits Requested Visits Authorized [id number] Authorized Auto-Generat ed Referral 12/26/2021 01/25/2023 1 1 * MRI/CT (Routine) - Authorized Specialty Diagnoses / Procedures Referred By Contac t Referred To Contact MR IMAGING Diagnoses Bilateral hand numbness Procedures MRI CERVICAL SPINE WO IVCON MRI SPINAL CANAL CERVICAL W/O CONTRAST MATRL Juwan Mercado APRN.HUMAN RESOURCES COMPLIANCE MANAGER [address] [place] [address] Mr Imaging Referral ID Status Reason Start Date Expiration Date Visits Requested Visits Authorized [id number] Authorized Auto-Generat ed Referral 12/26/2021 02/10/2022 1 1 [facility] for referral (narrative)* Diagnostic Procedure Only (Routine) - Closed Specialty Diagnoses / Procedures Referred By Contac t Referred To Contact XR IMAGING Diagnoses Chronic bilateral low back pain with left-sided sciatica Procedures XR SCOLIOSIS PA STAND/LAT 2V RADEX ENTIR THRC LMBR CRV SAC SPI W/SKULL 2/3 VW Juwan Mercado APRN.HUMAN RESOURCES COMPLIANCE MANAGER [address] [place] [address] Xr Imaging Referral ID Status Reason Start Date Expiration Date V isits Requested Visits Authorized [id number] Closed Auto-Generate d Referral 12/26/2021 01/25/2023 1 1 * Diagnostic Procedure Only (Routine) - Closed Specialty Diagnoses / Procedures Referred By Contac t Referred To Contact XR IMAGING Diagnoses Chronic bilateral low back pain with left-sided sciatica Procedures XR LUMBAR MOTION 4V AP/LAT/ FLEX/EXT RADEX SPINE LUMBOSACRAL MINIMUM 4 VIEWS Juwan Mercado APRN.HUMAN RESOURCES COMPLIANCE MANAGER [address] [place] [address] Xr Imaging Referral ID Status Reason Start Date Expiration Date V isits Requested Visits Authorized [id number] Closed Auto-Generate d Referral 12/26/2021 01/25/2023 1 1 [facility] for referral (narrative)* Outpatient Procedure (Routine) - Authorized Specialty Diagnoses / Procedures Referred By Contac t Referred To Contact [facility] Diagnoses Bloating Epigastric pain Heartburn Nausea Procedures EGD DIAGNOSTIC ESOPHAGOGASTRODUODENOSC OPY TRANSORAL DIAGNOSTIC Warren Melgoza MD [address] [place] [address] [facility] [place] [address] [place] [address] Referral ID Status Reason Start Date Expiration Date Visits Requested Visits Authorized [id number] Authorized Auto-Generat ed Referral 09/12/2022 09/13/2023 1 1 [facility] for referral (narrative)* Diagnostic Procedure Only (Routine) - Closed Specialty Diagnoses / Procedures Referred By Sarah thakkar Referred To Contact US IMAGING Diagnoses Bloating Epigastric pain Heartburn Nausea Procedures US ABD RIGHT UPPER QUADRANT US ABDOMINAL REAL TIME W/IMAGE LIMITED Juwan Mercado APRN.HUMAN RESOURCES COMPLIANCE MANAGER [address] [place] [address] [place] [address] Referral ID Status Reason Start Date Expiration Date V isits Requested Visits Authorized [id number] Closed Auto-Generate d Referral 08/16/2022 09/15/2023 1 1 [facility] for referral (narrative)* Diagnostic Procedure Only (Routine) - Closed Specialty Diagnoses / Procedures Referred By Sarah thakkar Referred To Contact [facility] Diagnoses Bloating Epigastric pain Heartburn Nausea Procedures NM HEPATOBILIARY W EF AND/OR RX HEPATOBIL SYST IMAG INC GB W/PHARMA INTERVENJ Juwan Mercado APRN.HUMAN RESOURCES COMPLIANCE MANAGER [address] [place] [address] [facility] [address] [id number] Referral ID Status Reason Start Date Expiration Date V isits Requested Visits Authorized [id number] Closed Auto-Generate d Referral 08/16/2022 09/15/2023 1 1 [facility] for referral (narrative)* Diagnostic Procedure Only (Routine) - Closed Specialty Diagnoses / Procedures Referred By Sarah thakkar Referred To Contact BR IMAGING Diagnoses Encounter for screening mammogram for breast cancer Procedures MILAN SCREENING SCREENING MAMMOGRAPHY BI 2-VIEW BREAST INC CAD Juwan Mercado APRN.HUMAN RESOURCES COMPLIANCE MANAGER [address] [place] [address] [facility] [address] [place] [address] Referral ID Status Reason Start Date Expiration Date V isits Requested Visits Authorized [id number] Closed Auto-Generate d Referral 02/09/2021 03/11/2022 1 1 [facility] for referral (narrative)* Diagnostic Procedure Only (Routine) - Closed Specialty Diagnoses / Procedures Referred By Sarah thakkar Referred To Contact XR IMAGING Diagnoses Acute pain of left knee Procedures XR KNEE GENERAL 4V AP BOTH/PA BOTH/LAT/MERC LEFT RADIOLOGIC EXAM KNEE COMPLETE 4/MORE VIEWS Juwan Mercado APRN.HUMAN RESOURCES COMPLIANCE MANAGER [address] [place] [address] [place] [address] Referral ID Status Reason Start Date Expiration Date V isits Requested Visits Authorized [id number] Closed Auto-Generate d Referral 05/26/2022 06/25/2023 1 1 [facility] for referral (narrative)* Outpatient Procedure (Routine) - Closed Specialty Diagnoses / Procedures Referred By Sarah thakkar Referred To Contact [facility] Diagnoses Bloating Epigastric pain Heartburn Nausea Procedures EGD DIAGNOSTIC ESOPHAGOGASTRODUODENOSC OPY TRANSORAL DIAGNOSTIC Warren Melgoza MD [address] [facility] [place] [address] [facility] [address] [place] [address] Referral ID Status Reason Start Date Expiration Date V isits Requested Visits Authorized [id number] Closed Auto-Generate d Referral 09/12/2022 09/13/2023 1 1 [facility] for referral (narrative)* Diagnostic Procedure Only (Routine) - Authorized Specialty Diagnoses / Procedures Referred By Gradyac t Referred To Contact BR IMAGING Diagnoses Encounter for screening mammogram for breast cancer Procedures MILAN SCREENING SCREENING MAMMOGRAPHY BI 2-VIEW BREAST INC CAD RogelioJuwan APRN.HUMAN RESOURCES COMPLIANCE MANAGER [address] [place] [address] [facility] [address] [place] [address] Referral ID Status Reason Start Date Expiration Date Visits Requested Visits Authorized [id number] Authorized Auto-Generat ed Referral 04/26/2024 1 1 [facility] for visit Narrative* Diagnostic Procedure Only (Routine) - Closed Specialty Diagnoses / Procedures Referred By Sarah t Referred To Contact XR IMAGING Diagnoses Chronic bilateral low back pain with left-sided sciatica Procedures XR LUMBAR MOTION 4V AP/LAT/ FLEX/EXT RADEX SPINE LUMBOSACRAL MINIMUM 4 VIEWS Juwan Mercado, EDUCATION DEPARTMENT CHAIR.HUMAN RESOURCES COMPLIANCE MANAGER [address] [place] [address] Xr Imaging Referral ID Status Reason Start Date Expiration Date V isits Requested Visits Authorized [id number] Closed Auto-Generate d Referral 12/26/2021 01/25/2023 1 1 [facility] for visit Narrative* Diagnostic Procedure Only (Routine) - Closed Specialty Diagnoses / Procedures Referred By Contac t Referred To Contact BR IM[facility] Diagnoses Encounter for screening mammogram for breast cancer Procedures MILAN SCREENING SCREENING MAMMOGRAPHY BI 2-VIEW BREAST INC [facility] OaklandRogelioJuwan, EDUCATION DEPARTMENT CHAIR.HUMAN RESOURCES COMPLIANCE MANAGER [address] [place] [address] [facility] [address] [place] [address] Referral ID Status Reason Start Date Expiration Date V isits Requested Visits Authorized [id number] Closed Auto-Generate d Referral 02/09/2021 03/11/2022 1 1 [facility] for visit Narrative* Diagnostic Procedure Only (Routine) - Closed Specialty Diagnoses / Procedures Referred By Contac t Referred To Contact XR IMAGING Diagnoses Acute pain of left knee Procedures XR KNEE GENERAL 4V AP BOTH/PA BOTH/LAT/MERC LEFT RADIOLOGIC EXAM KNEE COMPLETE 4/MORE VIEWS Juwan Mercado, TITUS.HUMAN RESOURCES COMPLIANCE MANAGER [address] [place] [address] Xr Imaging [facility] Referral ID Status Reason Start Date Expiration Date V isits Requested Visits Authorized [id number] Closed Auto-Generate d Referral 05/26/2022 06/25/2023 1 1 [facility] Outpatient Procedure (Routine) - Closed Specialty Diagnoses / Procedures Referred By Sarah thakkar Referred To Contact [facility] Diagnoses Bloating Epigastric pain Heartburn Nausea Procedures EGD DIAGNOSTIC ESOPHAGOGASTRODUODENOSC OPY TRANSORAL DIAGNOSTIC Warren Melgoza MD [address] [place] [address] [facility] [address] [place] [address] Referral ID Status Reason Start Date Expiration Date V isits Requested Visits Authorized [id number] Closed Auto-Generate d Referral 09/12/2022 09/13/2023 1 1 [facility] Summary Purpose Family History No Family History Records FoundNo Family History Records FoundNo Family History Records FoundNo Family History Records FoundNo Family History Records Found Advance Directives No Advanced Directives Records FoundDocuments on File Type Date Recorded 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 Advance Directive(s) 08/21/2016 10:22 PM Advance Directive(s) 07/13/2016 12:55 PM Advance Directive(s) 07/13/2016 3:00 PM Documents on File Type Date Recorded 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 Advance Directive(s) 08/21/2016 10:22 PM Advance Directive(s) 07/13/2016 12:55 PM Advance Directive(s) 07/13/2016 3:00 PM Documents on File Type Date Recorded 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 Advance Directive(s) 07/13/2016 3:00 PM Documents on File Type Date Recorded 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 Advance Directive(s) 07/13/2016 3:00 PM Health Concerns Infection Onset Date Last Indicated Resolved Time COVID-19 Rule-Out 07/16/2021 07/16/2021 Reason for Referral Specialty Diagnoses / Procedures Referred By Contac t Referred To Contact Ent - Otolaryngology Diagnoses Sensation of swollen throat S/P complete thyroidectomy Procedures CONSULT TO ENT OFFICE/OUTPATIENT [facility] 60-74 MINUTES Juwan Mercado, EDUCATION DEPARTMENT CHAIR.HUMAN RESOURCES COMPLIANCE MANAGER [address] [place] [address] Referral ID Status Reason Start Date Expiration Date Visits Requested Visits Authorized [id number] Authorized PCP Requested Referral 08/24/2021 08/24/2022 1 1 Specialty Diagnoses / Procedures Referred By Contac t Referred To Contact Ivett Duncan, EDUCATION DEPARTMENT CHAIR.HUMAN RESOURCES COMPLIANCE MANAGER [address] [place] [address] Referral ID Status Reason Start Date Expiration Date Visits Re quested Visits Authorized [id number] Closed 1 1 Specialty Diagnoses / Procedures Referred By Contac t Referred To Contact MR IMAGING Diagnoses Scoliosis, unspecified scoliosis type, unspecified spinal region S/P lumbar discectomy Degenerative disc disease, lumbar Acute right-sided low back pain with right-sided sciatica Spinal stenosis of lumbar region, unspecified whether neurogenic claudication present Procedures MRI LUMBAR SPINE WO IVCON MRI SPINAL CANAL LUMBAR W/O CONTRAST MATERIAL Juwan Mercado, EDUCATION DEPARTMENT CHAIR.HUMAN RESOURCES COMPLIANCE MANAGER [address] [place] [address] Mr Imaging Referral ID Status Reason Start Date Expiration Date V isits Requested Visits Authorized [id number] Closed Auto-Generate d Referral 10/12/2021 11/26/2021 1 1 Specialty Diagnoses / Procedures Referred By Contac t Referred To Contact [facility] Diagnoses Degenerative disc disease, lumbar S/P lumbar discectomy Spinal stenosis of lumbar region, unspecified whether neurogenic claudication present Scoliosis, unspecified scoliosis type, unspecified spinal region Chronic pain syndrome Procedures CONSULT TO SPINE SURGERY OFFICE/OUTPATIENT [facility] 60-74 MINUTES Ivett Duncan, EDUCATION DEPARTMENT CHAIR.HUMAN RESOURCES COMPLIANCE MANAGER [address] [place] [address] [facility] [address] [place] [address] Referral ID Status Reason Start Date Expiration Date Visits Requested Visits Authorized [id number] Authorized PCP Requested Referral 11/28/2021 11/28/2022 1 1 Specialty Diagnoses / Procedures Referred By Contac t Referred To Contact Diagnoses S/P lumbar discectomy Degenerative disc disease, lumbar Spinal stenosis of lumbar region, unspecified whether neurogenic claudication present Scoliosis, unspecified scoliosis type, unspecified spinal region Juwan Mercado, EDUCATION DEPARTMENT CHAIR.HUMAN RESOURCES COMPLIANCE MANAGER [address] [place] [address] Referral ID Status Reason Start Date Expiration Date Visits Re quested Visits Authorized [id number] Closed 1 1 Specialty Diagnoses / Procedures Referred By Contac t Referred To Contact [facility] Diagnoses Loss of balance Procedures CONSULT TO PHYSICAL THERAPY PHYSICAL THERAPY EVALUATION HIGH COMPLEX 45 MINS Bailey Mendez, EDUCATION DEPARTMENT CHAIR.HUMAN RESOURCES COMPLIANCE MANAGER [address] [place] [address] [facility] [address] [address] Referral ID Status Reason Start Date Expiration Date Visits Requested Visits Authorized [id number] Pending Review Auto-Generat ed Referral 12/23/2021 12/23/2022 1 1 Specialty Diagnoses / Procedures Referred By Contac t Referred To Contact [facility] Diagnoses Acute pain of left knee Procedures CONSULT TO PHYSICAL THERAPY PHYSICAL THERAPY EVALUATION HIGH COMPLEX 45 MINS Juwan Mercado, EDUCATION DEPARTMENT CHAIR.HUMAN RESOURCES COMPLIANCE MANAGER [address] [place] [address] [facility] [address] [address] Referral ID Status Reason Start Date Expiration Date Visits Requested Visits Authorized [id number] Authorized Auto-Generat ed Referral 04/16/2022 04/15/2023 40 40 Specialty Diagnoses / Procedures Referred By Contac t Referred To Contact XR IMAGING Diagnoses Acute pain of left knee Procedures XR KNEE GENERAL 4V AP BOTH/PA BOTH/LAT/MERC LEFT RADIOLOGIC EXAM KNEE COMPLETE 4/MORE VIEWS Juwan Mercado, EDUCATION DEPARTMENT CHAIR.HUMAN RESOURCES COMPLIANCE MANAGER [address] [place] [address] Xr Imaging Referral ID Status Reason Start Date Expiration Date V isits Requested Visits Authorized [id number] Closed Auto-Generate d Referral 05/26/2022 06/25/2023 1 1 Specialty Diagnoses / Procedures Referred By Contac t Referred To Contact Juwan Mercado APRN.HUMAN RESOURCES COMPLIANCE MANAGER [address] [place] [address] Referral ID Status Reason Start Date Expiration Date Visits Re quested Visits Authorized [id number] Closed 1 1 Specialty Diagnoses / Procedures Referred By Contac t Referred To Contact Neurology Diagnoses Migraine with aura and without status migrainosus, not intractable Procedures CONSULT TO NEUROLOGY OFFICE/OUTPATIENT [facility] MDM 60-74 MINUTES Juwan Mercado APRN.HUMAN RESOURCES COMPLIANCE MANAGER [address] [place] [address] Referral ID Status Reason Start Date Expiration Date Visits Requested Visits Authorized [id number] Authorized PCP Requested Referral 08/16/2022 08/16/2023 1 1 Specialty Diagnoses / Procedures Referred By Contac t Referred To Contact US IMAGING Diagnoses Bloating Epigastric pain Heartburn Nausea Procedures US ABD RIGHT UPPER QUADRANT US ABDOMINAL REAL TIME W/IMAGE LIMITED Juwan Mercado APRN.HUMAN RESOURCES COMPLIANCE MANAGER [address] [place] [address] Us Imaging Referral ID Status Reason Start Date Expiration Date V isits Requested Visits Authorized [id number] Closed Auto-Generate d Referral 08/16/2022 09/15/2023 1 1 Specialty Diagnoses / Procedures Referred By Contac t Referred To Contact MOLECULAR & FUNCTIONAL IMAGING Diagnoses Bloating Epigastric pain Heartburn Nausea Procedures NM HEPATOBILIARY W EF AND/OR RX HEPATOBIL SYST IMAG INC GB W/PHARMA INTERVENJ Juwan Mercado, EDUCATION DEPARTMENT CHAIR.HUMAN RESOURCES COMPLIANCE MANAGER [address] [place] [address] Molecular & Functional Imaging [address] [place] [address] Referral ID Status Reason Start Date Expiration Date V isits Requested Visits Authorized [id number] Closed Auto-Generate d Referral 08/16/2022 09/15/2023 1 1 Specialty Diagnoses / Procedures Referred By Contac t Referred To Contact Endocrinology Diagnoses Exhaustion Fatigue, unspecified type Lack of motivation S/P complete thyroidectomy Procedures CONSULT TO ENDOCRINOLOGY OFFICE/OUTPATIENT NEW HIGH MDM 60-74 MINUTES Juwan Mercado APRN.HUMAN RESOURCES COMPLIANCE MANAGER [address] [place] [address] Referral ID Status Reason Start Date Expiration Date Visits Requested Visits Authorized [id number] Authorized PCP Requested Referral 08/21/2022 08/21/2023 1 1 Medications Administered Section Inactive Administered Medications - up to 3 most recent administrations Medication Order MAR Action Action Date Dose Rate Site benzocaine 20% 1 Rockwell (TOPEX) 1 Rockwell, TOPICAL, DIRECTED, Starting on Jeri 10/05/22 at 1130, Until Jeri 10/05/22 at 1529, DOSING DIRECTED BY PHYSICIAN FOR PROCEDURAL SEDATION ONLY - Pharmaceutical Waste: Aerosol -, Intraprocedure Given 10/05/2022 11:28 AM EDT 5 Sprays diphenhydrAMINE 12.5-50 mg injection (BENADRYL) 12.5-50 mg, INTRAVENOUS, DIRECTED, Starting on Jeri 10/05/22 at 1130, Until Jeri 10/05/22 at 1529, DOSING DIRECTED BY PHYSICIAN FOR PROCEDURAL SEDATION ONLY, Intraprocedure Given 10/05/2022 11:31 AM EDT 50 mg fentaNYL 50 mcg/mL 25-100 mcg injection (SUBLIMAZE) 25-100 mcg, INTRAVENOUS, DIRECTED, Starting on Jeri 10/05/22 at 1130, Until Jeri 10/05/22 at 1529, DOSING DIRECTED BY PHYSICIAN FOR PROCEDURAL SEDATION ONLY, Intraprocedure Given 10/05/2022 11:34 AM EDT 50 mcg Additional Source Comments INFORMATION SOURCE (unrecogn ized section and content) DATE CREATED AUTHOR AUTHOR'S ORGANIZ ATION 10/10/2017 [facility] DATE CREATED AUTHOR AUTHOR'S ORGANIZ ATION 08/04/2021 [facility] DATE CREATED AUTHOR AUTHOR'S ORGANIZ ATION 03/02/2022 [facility] DATE CREATED AUTHOR AUTHOR'S ORGANIZ ATION 04/21/2023 [facility] Source Comments (unrecognize d section and content) In the event this informatio n is protected by the Federal Confidentiality of Alcohol and Drug Abuse Patient Records regulations: The Federal rules restrict any use of the information to criminally investigate or prosecute any alcohol or drug abuse patient.[facility] HospitalIn the event this information is protected by the Federal Confidentiality of Alcohol and Drug Abuse Patient Records regulations: The Federal rules restrict any use of the information to criminally investigate or prosecute any alcohol or drug abuse patient.[facility] HospitalIn the event this information is protected by the Federal Confidentiality of Alcohol and Drug Abuse Patient Records regulations: The Federal rules restrict any use of the information to criminally investigate or prosecute any alcohol or drug abuse patient.[facility] HospitalIn the event this information is protected by the Federal Confidentiality of Alcohol and Drug Abuse Patient Records regulations: The Federal rules restrict any use of the information to criminally investigate or prosecute any alcohol or drug abuse patient.[facility] ClinicIn the event this information is protected by the Federal Confidentiality of Alcohol and Drug Abuse Patient Records regulations: The Federal rules restrict any use of the information to criminally investigate or prosecute any alcohol or drug abuse patient.[facility] HospitalIn the event this information is protected by the Federal Confidentiality of Alcohol and Drug Abuse Patient Records regulations: The Federal rules restrict any use of the information to criminally investigate or prosecute any alcohol or drug abuse patient.[facility] HospitalIn the event this information is protected by the Federal Confidentiality of Alcohol and Drug Abuse Patient Records regulations: The Federal rules restrict any use of the information to criminally investigate or prosecute any alcohol or drug abuse patient.[facility] HospitalIn the event this information is protected by the Federal Confidentiality of Alcohol and Drug Abuse Patient Records regulations: The Federal rules restrict any use of the information to criminally investigate or prosecute any alcohol or drug abuse patient.[facility] HospitalIn the event this information is protected by the Federal Confidentiality of Alcohol and Drug Abuse Patient Records regulations: The Federal rules restrict any use of the information to criminally investigate or prosecute any alcohol or drug abuse patient.[facility] HospitalIn the event this information is protected by the Federal Confidentiality of Alcohol and Drug Abuse Patient Records regulations: The Federal rules restrict any use of the information to criminally investigate or prosecute any alcohol or drug abuse patient.[facility] HospitalIn the event this information is protected by the Federal Confidentiality of Alcohol and Drug Abuse Patient Records regulations: The Federal rules restrict any use of the information to criminally investigate or prosecute any alcohol or drug abuse patient.[facility] HospitalIn the event this information is protected by the Federal Confidentiality of Alcohol and Drug Abuse Patient Records regulations: The Federal rules restrict any use of the information to criminally investigate or prosecute any alcohol or drug abuse patient.[facility] HospitalIn the event this information is protected by the Federal Confidentiality of Alcohol and Drug Abuse Patient Records regulations: The Federal rules restrict any use of the information to criminally investigate or prosecute any alcohol or drug abuse patient.[facility] HospitalIn the event this information is protected by the Federal Confidentiality of Alcohol and Drug Abuse Patient Records regulations: The Federal rules restrict any use of the information to criminally investigate or prosecute any alcohol or drug abuse patient.[facility] HospitalIn the event this information is protected by the Federal Confidentiality of Alcohol and Drug Abuse Patient Records regulations: The Federal rules restrict any use of the information to criminally investigate or prosecute any alcohol or drug abuse patient.[facility] HospitalIn the event this information is protected by the Federal Confidentiality of Alcohol and Drug Abuse Patient Records regulations: The Federal rules restrict any use of the information to criminally investigate or prosecute any alcohol or drug abuse patient.[facility] HospitalIn the event this information is protected by the Federal Confidentiality of Alcohol and Drug Abuse Patient Records regulations: The Federal rules restrict any use of the information to criminally investigate or prosecute any alcohol or drug abuse patient.[facility] HospitalIn the event this information is protected by the Federal Confidentiality of Alcohol and Drug Abuse Patient Records regulations: The Federal rules restrict any use of the information to criminally investigate or prosecute any alcohol or drug abuse patient.[facility] HospitalIn the event this information is protected by the Federal Confidentiality of Alcohol and Drug Abuse Patient Records regulations: The Federal rules restrict any use of the information to criminally investigate or prosecute any alcohol or drug abuse patient.[facility] HospitalIn the event this information is protected by the Federal Confidentiality of Alcohol and Drug Abuse Patient Records regulations: The Federal rules restrict any use of the information to criminally investigate or prosecute any alcohol or drug abuse patient.[facility] HospitalIn the event this information is protected by the Federal Confidentiality of Alcohol and Drug Abuse Patient Records regulations: The Federal rules restrict any use of the information to criminally investigate or prosecute any alcohol or drug abuse patient.[facility] HospitalIn the event this information is protected by the Federal Confidentiality of Alcohol and Drug Abuse Patient Records regulations: The Federal rules restrict any use of the information to criminally investigate or prosecute any alcohol or drug abuse patient.[facility] HospitalIn the event this information is protected by the Federal Confidentiality of Alcohol and Drug Abuse Patient Records regulations: The Federal rules restrict any use of the information to criminally investigate or prosecute any alcohol or drug abuse patient.[facility] HospitalIn the event this information is protected by the Federal Confidentiality of Alcohol and Drug Abuse Patient Records regulations: The Federal rules restrict any use of the information to criminally investigate or prosecute any alcohol or drug abuse patient.[facility] HospitalIn the event this information is protected by the Federal Confidentiality of Alcohol and Drug Abuse Patient Records regulations: The Federal rules restrict any use of the information to criminally investigate or prosecute any alcohol or drug abuse patient.[facility] HospitalIn the event this information is protected by the Federal Confidentiality of Alcohol and Drug Abuse Patient Records regulations: The Federal rules restrict any use of the information to criminally investigate or prosecute any alcohol or drug abuse patient.[facility] HospitalIn the event this information is protected by the Federal Confidentiality of Alcohol and Drug Abuse Patient Records regulations: The Federal rules restrict any use of the information to criminally investigate or prosecute any alcohol or drug abuse patient.[facility] HospitalIn the event this information is protected by the Federal Confidentiality of Alcohol and Drug Abuse Patient Records regulations: The Federal rules restrict any use of the information to criminally investigate or prosecute any alcohol or drug abuse patient.[facility] HospitalIn the event this information is protected by the Federal Confidentiality of Alcohol and Drug Abuse Patient Records regulations: The Federal rules restrict any use of the information to criminally investigate or prosecute any alcohol or drug abuse patient.[facility] HospitalIn the event this information is protected by the Federal Confidentiality of Alcohol and Drug Abuse Patient Records regulations: The Federal rules restrict any use of the information to criminally investigate or prosecute any alcohol or drug abuse patient.[facility] HospitalIn the event this information is protected by the Federal Confidentiality of Alcohol and Drug Abuse Patient Records regulations: The Federal rules restrict any use of the information to criminally investigate or prosecute any alcohol or drug abuse patient.[facility] HospitalIn the event this information is protected by the Federal Confidentiality of Alcohol and Drug Abuse Patient Records regulations: The Federal rules restrict any use of the information to criminally investigate or prosecute any alcohol or drug abuse patient.[facility] HospitalIn the event this information is protected by the Federal Confidentiality of Alcohol and Drug Abuse Patient Records regulations: The Federal rules restrict any use of the information to criminally investigate or prosecute any alcohol or drug abuse patient.[facility] HospitalIn the event this information is protected by the Federal Confidentiality of Alcohol and Drug Abuse Patient Records regulations: The Federal rules restrict any use of the information to criminally investigate or prosecute any alcohol or drug abuse patient.[facility] HospitalIn the event this information is protected by the Federal Confidentiality of Alcohol and Drug Abuse Patient Records regulations: The Federal rules restrict any use of the information to criminally investigate or prosecute any alcohol or drug abuse patient.[facility] HospitalIn the event this information is protected by the Federal Confidentiality of Alcohol and Drug Abuse Patient Records regulations: The Federal rules restrict any use of the information to criminally investigate or prosecute any alcohol or drug abuse patient.[facility] HospitalIn the event this information is protected by the Federal Confidentiality of Alcohol and Drug Abuse Patient Records regulations: The Federal rules restrict any use of the information to criminally investigate or prosecute any alcohol or drug abuse patient.[facility] HospitalIn the event this information is protected by the Federal Confidentiality of Alcohol and Drug Abuse Patient Records regulations: The Federal rules restrict any use of the information to criminally investigate or prosecute any alcohol or drug abuse patient.[facility] HospitalIn the event this information is protected by the Federal Confidentiality of Alcohol and Drug Abuse Patient Records regulations: The Federal rules restrict any use of the information to criminally investigate or prosecute any alcohol or drug abuse patient.[facility] HospitalIn the event this information is protected by the Federal Confidentiality of Alcohol and Drug Abuse Patient Records regulations: The Federal rules restrict any use of the information to criminally investigate or prosecute any alcohol or drug abuse patient.[facility] HospitalIn the event this information is protected by the Federal Confidentiality of Alcohol and Drug Abuse Patient Records regulations: The Federal rules restrict any use of the information to criminally investigate or prosecute any alcohol or drug abuse patient.[facility] HospitalIn the event this information is protected by the Federal Confidentiality of Alcohol and Drug Abuse Patient Records regulations: The Federal rules restrict any use of the information to criminally investigate or prosecute any alcohol or drug abuse patient.[facility] HospitalIn the event this information is protected by the Federal Confidentiality of Alcohol and Drug Abuse Patient Records regulations: The Federal rules restrict any use of the information to criminally investigate or prosecute any alcohol or drug abuse patient.[facility] HospitalIn the event this information is protected by the Federal Confidentiality of Alcohol and Drug Abuse Patient Records regulations: The Federal rules restrict any use of the information to criminally investigate or prosecute any alcohol or drug abuse patient.[facility] HospitalIn the event this information is protected by the Federal Confidentiality of Alcohol and Drug Abuse Patient Records regulations: The Federal rules restrict any use of the information to criminally investigate or prosecute any alcohol or drug abuse patient.[facility] HospitalIn the event this information is protected by the Federal Confidentiality of Alcohol and Drug Abuse Patient Records regulations: The Federal rules restrict any use of the information to criminally investigate or prosecute any alcohol or drug abuse patient.[facility] HospitalIn the event this information is protected by the Federal Confidentiality of Alcohol and Drug Abuse Patient Records regulations: The Federal rules restrict any use of the information to criminally investigate or prosecute any alcohol or drug abuse patient.[facility] HospitalIn the event this information is protected by the Federal Confidentiality of Alcohol and Drug Abuse Patient Records regulations: The Federal rules restrict any use of the information to criminally investigate or prosecute any alcohol or drug abuse patient.[facility] HospitalIn the event this information is protected by the Federal Confidentiality of Alcohol and Drug Abuse Patient Records regulations: The Federal rules restrict any use of the information to criminally investigate or prosecute any alcohol or drug abuse patient.[facility] HospitalIn the event this information is protected by the Federal Confidentiality of Alcohol and Drug Abuse Patient Records regulations: The Federal rules restrict any use of the information to criminally investigate or prosecute any alcohol or drug abuse patient.[facility] HospitalIn the event this information is protected by the Federal Confidentiality of Alcohol and Drug Abuse Patient Records regulations: The Federal rules restrict any use of the information to criminally investigate or prosecute any alcohol or drug abuse patient.[facility] HospitalIn the event this information is protected by the Federal Confidentiality of Alcohol and Drug Abuse Patient Records regulations: The Federal rules restrict any use of the information to criminally investigate or prosecute any alcohol or drug abuse patient.[facility] HospitalIn the event this information is protected by the Federal Confidentiality of Alcohol and Drug Abuse Patient Records regulations: The Federal rules restrict any use of the information to criminally investigate or prosecute any alcohol or drug abuse patient.[facility] HospitalIn the event this information is protected by the Federal Confidentiality of Alcohol and Drug Abuse Patient Records regulations: The Federal rules restrict any use of the information to criminally investigate or prosecute any alcohol or drug abuse patient.[facility] ClinicIn the event this information is protected by the Federal Confidentiality of Alcohol and Drug Abuse Patient Records regulations: The Federal rules restrict any use of the information to criminally investigate or prosecute any alcohol or drug abuse patient.[facility] HospitalIn the event this information is protected by the Federal Confidentiality of Alcohol and Drug Abuse Patient Records regulations: The Federal rules restrict any use of the information to criminally investigate or prosecute any alcohol or drug abuse patient.[facility] HospitalIn the event this information is protected by the Federal Confidentiality of Alcohol and Drug Abuse Patient Records regulations: The Federal rules restrict any use of the information to criminally investigate or prosecute any alcohol or drug abuse patient.[facility] HospitalIn the event this information is protected by the Federal Confidentiality of Alcohol and Drug Abuse Patient Records regulations: The Federal rules restrict any use of the information to criminally investigate or prosecute any alcohol or drug abuse patient.[facility] HospitalIn the event this information is protected by the Federal Confidentiality of Alcohol and Drug Abuse Patient Records regulations: The Federal rules restrict any use of the information to criminally investigate or prosecute any alcohol or drug abuse patient.[facility] HospitalIn the event this information is protected by the Federal Confidentiality of Alcohol and Drug Abuse Patient Records regulations: The Federal rules restrict any use of the information to criminally investigate or prosecute any alcohol or drug abuse patient.[facility] HospitalIn the event this information is protected by the Federal Confidentiality of Alcohol and Drug Abuse Patient Records regulations: The Federal rules restrict any use of the information to criminally investigate or prosecute any alcohol or drug abuse patient.[facility] HospitalIn the event this information is protected by the Federal Confidentiality of Alcohol and Drug Abuse Patient Records regulations: The Federal rules restrict any use of the information to criminally investigate or prosecute any alcohol or drug abuse patient.[facility] HospitalIn the event this information is protected by the Federal Confidentiality of Alcohol and Drug Abuse Patient Records regulations: The Federal rules restrict any use of the information to criminally investigate or prosecute any alcohol or drug abuse patient.[facility] HospitalIn the event this information is protected by the Federal Confidentiality of Alcohol and Drug Abuse Patient Records regulations: The Federal rules restrict any use of the information to criminally investigate or prosecute any alcohol or drug abuse patient.[facility] HospitalIn the event this information is protected by the Federal Confidentiality of Alcohol and Drug Abuse Patient Records regulations: The Federal rules restrict any use of the information to criminally investigate or prosecute any alcohol or drug abuse patient.[facility] HospitalIn the event this information is protected by the Federal Confidentiality of Alcohol and Drug Abuse Patient Records regulations: The Federal rules restrict any use of the information to criminally investigate or prosecute any alcohol or drug abuse patient.[facility] HospitalIn the event this information is protected by the Federal Confidentiality of Alcohol and Drug Abuse Patient Records regulations: The Federal rules restrict any use of the information to criminally investigate or prosecute any alcohol or drug abuse patient.[facility] HospitalIn the event this information is protected by the Federal Confidentiality of Alcohol and Drug Abuse Patient Records regulations: The Federal rules restrict any use of the information to criminally investigate or prosecute any alcohol or drug abuse patient.[facility] Reason for Visit (unrecogniz ed section and content) Reason Comments Opened In Error Reason Comments Results Reason Comments Post-Op Visit Reason Comments Future Appointment today for problem sw allowing Reason Comments Difficulty Swallowing x1 week, had no di fficulty swallowing right after surgery Reason Comments Patient Update problems swallowing Reason Onset Date Comments Refill Request 09/28/2021 Reason Comments Refill Request Specialty Diagnoses / Procedures Referred By Contac t Referred To Contact MR IMAGING Diagnoses Scoliosis, unspecified scoliosis type, unspecified spinal region S/P lumbar discectomy Degenerative disc disease, lumbar Acute right-sided low back pain with right-sided sciatica Spinal stenosis of lumbar region, unspecified whether neurogenic claudication present Procedures MRI LUMBAR SPINE WO IVCON MRI SPINAL CANAL LUMBAR W/O CONTRAST MATERIAL Juwan Mercado, TITUS.HUMAN RESOURCES COMPLIANCE MANAGER [address] [place] [address] Mr Imaging Referral ID Status Reason Start Date Expiration Date V isits Requested Visits Authorized [id number] Closed Auto-Generate d Referral 10/12/2021 11/26/2021 1 1 Reason Comments Back Pain MRI results Reason Comments New Patient Evaluation Reason Comments Appointment Reason Comments Medication Problem Reason Comments Rx refill; not on current med list Reason Onset Date Comments Refill Request 12/20/2021 Reason Comments Low Back Pain Reason Onset Date Comments Refill Request 01/02/2022 Reason Comments New Patient Reason Onset Date Comments Refill Request 01/30/2022 Reason Comments Patient Question Requests imaging tra nsferred to a disc Reason Comments Nerve Pain Hypersensitivity to mendez legs and buttocks Reason Onset Date Comments Refill Request 08/14/2022 Reason Comments Headache Results, Lab Thyroid Abdominal Pain Heartburn Reason Comments Results Reason Comments Consult Bloating, epigastric pain, heartburn, nausea Specialty Diagnoses / Procedures Referred By Contac t Referred To Contact General Surgery Diagnoses Bloating Epigastric pain Heartburn Nausea Procedures CONSULT TO GENERAL SURGERY OFFICE/OUTPATIENT NEW HIGH MDM 60-74 MINUTES Juwan Mercado, EDUCATION DEPARTMENT CHAIR.HUMAN RESOURCES COMPLIANCE MANAGER [address] [place] [address] Referral ID Status Reason Start Date Expiration Date V isits Requested Visits Authorized [id number] Closed PCP Requested Referral 08/25/2022 08/25/2023 1 1 Reason Onset Date Comments Refill Request Refill Request 10/24/2022 Reason Onset Date Comments Refill Request 10/21/2022 Reason Comments 10/05/2022 egd asc Reason Onset Date Comments Refill Request 12/10/2022 Reason Comments Follow Up Reason Comments Patient Update Reason Comments Radiology US Specialty Diagnoses / Procedures Referred By Contac t Referred To Contact US IMAGING Diagnoses Bloating Epigastric pain Heartburn Nausea Procedures US ABD RIGHT UPPER QUADRANT US ABDOMINAL REAL TIME W/IMAGE LIMITED Juwan Mercado, EDUCATION DEPARTMENT CHAIR.HUMAN RESOURCES COMPLIANCE MANAGER [address] [place] [address] [place] [address] Referral ID Status Reason Start Date Expiration Date V isits Requested Visits Authorized [id number] Closed Auto-Generate d Referral 08/16/2022 09/15/2023 1 1 Reason Comments Radiology NM Specialty Diagnoses / Procedures Referred By Sarah t Referred To Contact MOLECULAR & FUNCTIONAL IMAGING Diagnoses Bloating Epigastric pain Heartburn Nausea Procedures NM HEPATOBILIARY W EF AND/OR RX HEPATOBIL SYST IMAG INC GB W/PHARMA INTERVENJ Juwan Mercado, EDUCATION DEPARTMENT CHAIR.HUMAN RESOURCES COMPLIANCE MANAGER [address] [place] [address] Molecular & Functional Imaging [address] [place] [address] Referral ID Status Reason Start Date Expiration Date V isits Requested Visits Authorized [id number] Closed Auto-Generate d Referral 08/16/2022 09/15/2023 1 1 Care Teams (unrecognized sec tion and content) Urology Physician Assistant Relationship Specialty Start Date End Date Juwan Mercado, EDUCATION DEPARTMENT CHAIR.HUMAN RESOURCES COMPLIANCE MANAGER [address] [place], [place] [address] [phone] PCP - General Family Practice 01/14/21 Urology Physician Assistant Relationship Specialty Start Date End Date Juwan Mercado, EDUCATION DEPARTMENT CHAIR.HUMAN RESOURCES COMPLIANCE MANAGER [address] [place] [address] PCP - General Family Practice 01/14/21 Urology Physician Assistant Relationship Specialty Start Date End Date Juwan Mercado, EDUCATION DEPARTMENT CHAIR.HUMAN RESOURCES COMPLIANCE MANAGER [address] [place] [address] PCP - General Family Practice 01/14/21 Urology Physician Assistant Relationship Specialty Start Date End Date Juwan Mercado, EDUCATION DEPARTMENT CHAIR.HUMAN RESOURCES COMPLIANCE MANAGER [address] [place] [address] PCP - General Family Practice 01/14/21 Urology Physician Assistant Relationship Specialty Start Date End Date Juwan Mercado, EDUCATION DEPARTMENT CHAIR.HUMAN RESOURCES COMPLIANCE MANAGER [address] [place] [address] PCP - General Family Practice 01/14/21 Urology Physician Assistant Relationship Specialty Start Date End Date Juwan Mercado, EDUCATION DEPARTMENT CHAIR.HUMAN RESOURCES COMPLIANCE MANAGER [address] [place] [address] PCP - General Family Practice 01/14/21 Urology Physician Assistant Relationship Specialty Start Date End Date Juwan Mercado, EDUCATION DEPARTMENT CHAIR.HUMAN RESOURCES COMPLIANCE MANAGER [address] [place] [address] PCP - General Family Practice 01/14/21 Urology Physician Assistant Relationship Specialty Start Date End Date RogelioJuwan, EDUCATION DEPARTMENT CHAIR.HUMAN RESOURCES COMPLIANCE MANAGER [address] [place] [address] PCP - General Family Practice 01/14/21 Urology Physician Assistant Relationship Specialty Start Date End Date Juwan Mercado, EDUCATION DEPARTMENT CHAIR.HUMAN RESOURCES COMPLIANCE MANAGER [address] [place] [address] PCP - General Family Practice 01/14/21 Urology Physician Assistant Relationship Specialty Start Date End Date RogelioJuwan, EDUCATION DEPARTMENT CHAIR.HUMAN RESOURCES COMPLIANCE MANAGER [address] [place] [address] PCP - General Family Practice 01/14/21 Urology Physician Assistant Relationship Specialty Start Date End Date RogelioJuwan, EDUCATION DEPARTMENT CHAIR.HUMAN RESOURCES COMPLIANCE MANAGER [address] [place] [address] PCP - General Family Practice 01/14/21 Urology Physician Assistant Relationship Specialty Start Date End Date RogelioJuwan, EDUCATION DEPARTMENT CHAIR.HUMAN RESOURCES COMPLIANCE MANAGER [address] [place] [address] PCP - General Family Practice 01/14/21 Urology Physician Assistant Relationship Specialty Start Date End Date RogelioJuwan, EDUCATION DEPARTMENT CHAIR.HUMAN RESOURCES COMPLIANCE MANAGER [address] [place] [address] PCP - General Family Practice 01/14/21 Urology Physician Assistant Relationship Specialty Start Date End Date RogelioJuwan, EDUCATION DEPARTMENT CHAIR.HUMAN RESOURCES COMPLIANCE MANAGER [address] [place] [address] PCP - General Family Practice 01/14/21 Urology Physician Assistant Relationship Specialty Start Date End Date Juwan Mercado, EDUCATION DEPARTMENT CHAIR.HUMAN RESOURCES COMPLIANCE MANAGER [address] [place] [address] PCP - General Family Practice 01/14/21 Urology Physician Assistant Relationship Specialty Start Date End Date Juwan Mercado, EDUCATION DEPARTMENT CHAIR.HUMAN RESOURCES COMPLIANCE MANAGER [address] [place] [address] PCP - General Family Practice 01/14/21 Urology Physician Assistant Relationship Specialty Start Date End Date Juwan Mercado, EDUCATION DEPARTMENT CHAIR.HUMAN RESOURCES COMPLIANCE MANAGER [address] [place] [address] PCP - General Family Practice 01/14/21 Urology Physician Assistant Relationship Specialty Start Date End Date Juwan Mercado, EDUCATION DEPARTMENT CHAIR.HUMAN RESOURCES COMPLIANCE MANAGER [address] [place] [address] PCP - General Family Practice 01/14/21 Urology Physician Assistant Relationship Specialty Start Date End Date Juwan Mercado, EDUCATION DEPARTMENT CHAIR.HUMAN RESOURCES COMPLIANCE MANAGER [address] [place] [address] PCP - General Family Practice 01/14/21 Urology Physician Assistant Relationship Specialty Start Date End Date Juwan Mercado, EDUCATION DEPARTMENT CHAIR.HUMAN RESOURCES COMPLIANCE MANAGER [address] [place] [address] PCP - General Family Practice 01/14/21 Urology Physician Assistant Relationship Specialty Start Date End Date Juwan Mercado, EDUCATION DEPARTMENT CHAIR.HUMAN RESOURCES COMPLIANCE MANAGER [address] [place] [address] PCP - General Family Practice 01/14/21 Urology Physician Assistant Relationship Specialty Start Date End Date Juwan Mercado, EDUCATION DEPARTMENT CHAIR.HUMAN RESOURCES COMPLIANCE MANAGER [address] [place] [address] PCP - General Family Practice 01/14/21 Urology Physician Assistant Relationship Specialty Start Date End Date RogelioJuwan, EDUCATION DEPARTMENT CHAIR.HUMAN RESOURCES COMPLIANCE MANAGER [address] [place] [address] PCP - General Family Medicine 01/14/21 Urology Physician Assistant Relationship Specialty Start Date End Date RogelioJuwan, EDUCATION DEPARTMENT CHAIR.HUMAN RESOURCES COMPLIANCE MANAGER [address] [place] [address] PCP - General Family Medicine 01/14/21 Urology Physician Assistant Relationship Specialty Start Date End Date RogelioJuwan, EDUCATION DEPARTMENT CHAIR.HUMAN RESOURCES COMPLIANCE MANAGER [address] [place] [address] PCP - General Family Medicine 01/14/21 Urology Physician Assistant Relationship Specialty Start Date End Date RogelioJuwan, EDUCATION DEPARTMENT CHAIR.HUMAN RESOURCES COMPLIANCE MANAGER [address] [place] [address] PCP - General Family Medicine 01/14/21 Urology Physician Assistant Relationship Specialty Start Date End Date RogelioJuwan, EDUCATION DEPARTMENT CHAIR.HUMAN RESOURCES COMPLIANCE MANAGER [address] [place] [address] PCP - General Family Medicine 01/14/21 Urology Physician Assistant Relationship Specialty Start Date End Date RogelioJuwan, EDUCATION DEPARTMENT CHAIR.HUMAN RESOURCES COMPLIANCE MANAGER [address] [place] [address] PCP - General Family Medicine 01/14/21 Urology Physician Assistant Relationship Specialty Start Date End Date [facility] EDUCATION DEPARTMENT CHAIR.HUMAN RESOURCES COMPLIANCE MANAGER [address] [place] [address] PCP - General Family Medicine 01/14/21 Urology Physician Assistant Relationship Specialty Start Date End Date RogelioJuwan, EDUCATION DEPARTMENT CHAIR.HUMAN RESOURCES COMPLIANCE MANAGER [address] [place] [address] PCP - General Family Medicine 01/14/21 Urology Physician Assistant Relationship Specialty Start Date End Date Juwan Mercado, EDUCATION DEPARTMENT CHAIR.HUMAN RESOURCES COMPLIANCE MANAGER [address] [facility] [place] [address] PCP - General Family Medicine 01/14/21 Urology Physician Assistant Relationship Specialty Start Date End Date Juwan Mercado, EDUCATION DEPARTMENT CHAIR.HUMAN RESOURCES COMPLIANCE MANAGER [address] [facility] [place] [address] PCP - General Family Medicine 01/14/21 Urology Physician Assistant Relationship Specialty Start Date End Date Juwan Mercado, EDUCATION DEPARTMENT CHAIR.HUMAN RESOURCES COMPLIANCE MANAGER [address] [place] [address] PCP - General Family Medicine 01/14/21 Urology Physician Assistant Relationship Specialty Start Date End Date Juwan Mercado, EDUCATION DEPARTMENT CHAIR.HUMAN RESOURCES COMPLIANCE MANAGER [address] [place] [address] PCP - General Family Medicine 01/14/21 Urology Physician Assistant Relationship Specialty Start Date End Date Juwan Mercado, EDUCATION DEPARTMENT CHAIR.HUMAN RESOURCES COMPLIANCE MANAGER [address] [place] [address] PCP - General Family Medicine 01/14/21 Urology Physician Assistant Relationship Specialty Start Date End Date Juwan Mercado, EDUCATION DEPARTMENT CHAIR.HUMAN RESOURCES COMPLIANCE MANAGER [address] [place] [address] PCP - General Family Medicine 01/14/21 Urology Physician Assistant Relationship Specialty Start Date End Date Juwan Mercado, EDUCATION DEPARTMENT CHAIR.HUMAN RESOURCES COMPLIANCE MANAGER [address] [facility] [place] [address] PCP - General Family Medicine 01/14/21 Urology Physician Assistant Relationship Specialty Start Date End Date Juwan Mercado, EDUCATION DEPARTMENT CHAIR.HUMAN RESOURCES COMPLIANCE MANAGER [address] [facility] [place] [address] PCP - General Family Medicine 01/14/21 Urology Physician Assistant Relationship Specialty Start Date End Date Juwan Mercado, EDUCATION DEPARTMENT CHAIR.HUMAN RESOURCES COMPLIANCE MANAGER [address] [facility] [place] [address] PCP - General Family Medicine 01/14/21 Urology Physician Assistant Relationship Specialty Start Date End Date [facility], EDUCATION DEPARTMENT CHAIR.HUMAN RESOURCES COMPLIANCE MANAGER [address] [facility] [place] [address] PCP - General Family Medicine 01/14/21 Urology Physician Assistant Relationship Specialty Start Date End Date [facility], EDUCATION DEPARTMENT CHAIR.HUMAN RESOURCES COMPLIANCE MANAGER [address] [facility] [place] [address] PCP - General Family Medicine 01/14/21 Urology Physician Assistant Relationship Specialty Start Date End Date [facility], EDUCATION DEPARTMENT CHAIR.HUMAN RESOURCES COMPLIANCE MANAGER [address] [facility] [place] [place] [address] PCP - General Family Medicine 01/14/21 Urology Physician Assistant Relationship Specialty Start Date End Date [facility], EDUCATION DEPARTMENT CHAIR.HUMAN RESOURCES COMPLIANCE MANAGER [address] [facility] [place] [address] PCP - General Family Medicine 01/14/21 Urology Physician Assistant Relationship Specialty Start Date End Date [facility], EDUCATION DEPARTMENT CHAIR.HUMAN RESOURCES COMPLIANCE MANAGER [address] [facility] [place] [address] PCP - General Family Medicine 01/14/21 Urology Physician Assistant Relationship Specialty Start Date End Date [facility], EDUCATION DEPARTMENT CHAIR.HUMAN RESOURCES COMPLIANCE MANAGER [address] [facility] [place] [address] PCP - General Family Medicine 01/14/21 Urology Physician Assistant Relationship Specialty Start Date End Date [facility], EDUCATION DEPARTMENT CHAIR.HUMAN RESOURCES COMPLIANCE MANAGER [address] [facility] [place] [address] PCP - General Family Medicine 01/14/21 Urology Physician Assistant Relationship Specialty Start Date End Date [facility], EDUCATION DEPARTMENT CHAIR.HUMAN RESOURCES COMPLIANCE MANAGER [address] [place] [address] PCP - General Family Medicine 01/14/21 Urology Physician Assistant Relationship Specialty Start Date End Date [facility], EDUCATION DEPARTMENT CHAIR.HUMAN RESOURCES COMPLIANCE MANAGER [address] [place] [address] PCP - General Family Medicine 01/14/21 Urology Physician Assistant Relationship Specialty Start Date End Date [facility], EDUCATION DEPARTMENT CHAIR.HUMAN RESOURCES COMPLIANCE MANAGER [address] [facility] [place] [address] PCP - General Family Medicine 01/14/21 Urology Physician Assistant Relationship Specialty Start Date End Date [facility], EDUCATION DEPARTMENT CHAIR.HUMAN RESOURCES COMPLIANCE MANAGER [address] [facility] [place] [address] PCP - General Family Medicine 01/14/21 Urology Physician Assistant Relationship Specialty Start Date End Date [facility], EDUCATION DEPARTMENT CHAIR.HUMAN RESOURCES COMPLIANCE MANAGER [address] [facility] [place] [address] PCP - General Family Medicine 01/14/21 Urology Physician Assistant Relationship Specialty Start Date End Date [facility], EDUCATION DEPARTMENT CHAIR.HUMAN RESOURCES COMPLIANCE MANAGER [address] [facility] [place] [address] PCP - General Family Medicine 01/14/21 FOR RECORDS PERTAINING TO PATIENTS WHO ARE OR HAVE BEEN ENROLLED IN A CHEMICAL DEPENDENCY/SUBSTANCEABUSE PROGRAM, SOME INFORMATION MAY BE OMITTED. This clinical summary was aggregated from multiple sources. Caution should be exercised in using it in the provision of clinical care. This summary normalizes information from multiple sources, and as a consequence, information in this document may materially change the coding, format and clinical context of patient data. In addition, data may be omitted in some cases. CLINICAL DECISIONS SHOULD BE BASED ON THE PRIMARY CLINICAL RECORDS. [employer] [facility]. provides no warranty or guarantee of the accuracy or completeness of information in this document.
--- NOTE | 2023-04-30 10:00 | RAD_ITS ---
PROCEDURE: Spinal cord stimulator placement. DATE OF EXAMINATION: April 30, 2023. INDICATION: Female, 47 years old. Chronic back pain. FLUOROSCOPY TIME (if supplied): (1 minute and 59 seconds) minutes/seconds. 26.03 mGy. 10 fluoroscopic images were provided. RAD/Lumbar Spine 2 or 3 Views IMPRESSION: Intraoperative imaging provided for spinal cord stimulator placement. Electronically Signed: Perico Ballard MD at 15:32 EST ,
[2023-04-30] MEDS: Cefazolin 2 GM in 0.9% Normal Saline (100mL Bag) 100 ML IV (10:04)
[2023-04-30] MEDS: Bacitracin 500 UNITS/GM PACKET (10:34)
[2023-04-30] MEDS: Bupivacaine 0.25% 30 ML Vial (10:36)
[2023-04-30] MEDS: Lidocaine 2% (20 ml mdv) 20 ML Vial (10:36)
--- NOTE | 2023-04-30 10:47 | OP.PCM_ITS ---
Report of Operation Date of Procedure: 04/30/23 Description of Surgical Findings:: Pre-Operative Diagnosis: Lumbosacral radiculopathy, lumbosacral degenerative disc disease, lumbosacral spinal stenosis, postlaminectomy syndrome of the lumbar spine. Post-Operative Diagnosis: Lumbosacral radiculopathy, lumbosacral degenerative disc disease, lumbosacral spinal stenosis, postlaminectomy syndrome of the lumbar spine. Surgery/Procedure Performed:: 1.? Percutaneous spinal cord stimulator trial x2 leads at the thoracolumbar level,2- spinal cord stimulator programming, 3- intraoperative fluoroscopic interpretation ANESTHESIA: MAC COMPLICATIONS: None BLOOD LOSS: Minimal Implanted device: Spinal cord stimulator lead [id number] lot number [id number], lead #2? [id number] number [id number] PROCEDURE IN DETAIL: History and physical today was reviewed. Risks and benefits of procedure explained. The patient understood, agreed to procedure, informed consent was obtained. IV inserted per routine protocol. The patient was taken to the operating room, placed in the prone position with a pillow positioned underneath the abdomen. A 2 g of Ancef IV piggyback was infused per anesthesia. The lower back area was prepped and draped in a sterile fashion using iodine x3 Ioban was placed.? The C-arm was brought in position for AP view at the L1-2 vertebral bodies under direct visualization fluoroscopy on a true AP view the L1-2 interlaminar space was identified skin and subcutaneous tissue and size approximately 10 cc of a mix of 2% lidocaine and 0.25% Marcaine using a 25-gauge regular needle followed by a 25-gauge 3-1/2 inch spinal needle towards the interlaminar space at L1-L2, the skin and subcutaneous tissue were then anesthetized and using an 11-gauge blade was then taken down to the skin and subcutaneous tissue using a 14-gauge 3 1/2 inch inch Touhy needle provided by the Microstim kit the needle was passed through the skin towards the interlaminar space at L1-2 and a left paramedian approach the needle was then advanced under direct visualization fluoroscopy towards the interlaminar space at L1-2 [id number] technique was then carried to air towards the interlaminar space at L1-2 once the tip of the needle was in the epidural space and loss of resistance was encountered to air and after confirmation of AP as well as oblique view of the spinal cord stimulator lead was then advanced under direct visualization fluoroscopy to be at the tip of the lead at T8 and the bottom of the lead around mid T10 after confirmation of AP as well as lateral view to confirm correct placement of the lead in the posterior compartment of the epidural space the previous procedure was then repeated to th e same level at L2-3 interlaminar space left paramedian approach the lead was then advanced to the right the second lead was then inserted under direct visualization with fluoroscopy to be at the mid T8 and mid T10 area the leads were were then connected to the external neurostimulator and patient was then awakened to confirm satisfactory coverage of the painful area once satisfactory coverage was then achieved the stylette of each needle was then removed and the skin and subcutaneous tissue on to the left of the paramedian needles was then taken anesthetized with a total of 10 cc of the previous mixture of 0.25% Marcaine and 2% lidocaine using a 25-gauge regular needle , using the 3-0 silk stitch to secure both leads to the skin with Steri-Strips, the skin was then covered with a Steri-Strips and bacitracin, the external stimulator was then attached to the pouch to the right of the patient's lower back area, the patient was then returned into the supine position in a stable condition and returned to recovery in a stable condition patient experienced no signs or symptoms of intrathecal or intravascular injection patient experienced no paresthesia the procedure was completed without any apparent difficulty any complication the patient appeared to tolerate well, motor as well as sensory function was unchanged from prior to the procedure ASSESSMENT AND PLAN: This is a 47 year-old Female with lumbosacral radiculopathy lumbosacral, degenerative disc disease lumbosacral spinal stenosis, postlaminectomy syndrome of the lumbar spine status post 1.? Spinal cord stimulator thoracolumbar leads placement x2 percutaneous trial, spinal cord stimulator programming, 3- intraoperative fluoroscopic interpretation,? patient will continue her current medications a prescription was provided to the patient Keflex 500 mg 1 p.o. every 8 hours for 7 days postop instruction were given in writing to the patient as well as verbally, patient will follow approximately 1 week for reevaluation.
== END 2023-04-30 11:50 | disposition home or self-care (01) ==
LOC: SDC 08:25 → AC 08:27
PROVIDERS: PCP Nurse Practitioner Family; Referring Provider Anesthesiology Pain Medicine; Visit Provider Anesthesiology Pain Medicine
PROC: (CPT 63650; principal; 2023-04-30 09:55)
DX: Z45.42 Encounter for adjustment and management of neurostimulator (principal); M48.07 Spinal stenosis, lumbosacral region; M96.1 Postlaminectomy syndrome, not elsewhere classified; M51.17 Intervertebral disc disorders with radiculopathy, lumbosacral region
CPT/HCPCS: 63650 ×2; 00620; 72100; 76000; C1778; J7120; J2405

== ENCOUNTER 2023-06-04 10:26 | Day surgery (SDC) | payer BC, SELFPAY ==
[2023-06-04] VITALS (7 sets, daily range): BP systolic 91–118; BP diastolic 55–70; PULSE 55–68; RESP 16; TEMP 36.3–36.9; O2SAT 98–100; BMI 29.6
[2023-06-04] MEDS: Lactated Ringers 1,000 ML 15 ML IV ×2 (11:20→14:17)
[2023-06-04] MEDS: Cefazolin 2 GM in 0.9% Normal Saline (100mL Bag) 100 ML IV (12:31)
--- NOTE | 2023-06-04 12:48 | RAD_ITS ---
PROCEDURE: Permanent spinal cord stimulator implant. DATE OF EXAMINATION: June 04, 2023. INDICATION: Female, 47 years old. Chronic back pain. FLUOROSCOPY TIME (if supplied): (2 minutes and 18 seconds.) minutes/seconds. 32.41 mGy RAD/Lumbar Spine 2 or 3 Views IMPRESSION: Intraoperative imaging provided for prominent spinal cord stimulator implantation. Electronically Signed: Perico Ballard MD at 15:17 EST ,
[2023-06-04] MEDS: Bupivacaine 0.25% 30 ML Vial (13:16)
[2023-06-04] MEDS: Lidocaine 2% (20 ml mdv) 20 ML Vial (13:16)
[2023-06-04] MEDS: Bacitracin 500 UNITS/GM PACKET (13:19)
--- NOTE | 2023-06-04 13:39 | OP.PCM_ITS ---
Report of Operation Date of Procedure: 06/04/23 Description of Surgical Findings:: Pre-Operative Diagnosis: Lumbosacral radiculopathy, lumbosacral degenerative disc disease, lumbosacral spinal stenosis, lumbar postlaminectomy syndrome Post-Operative Diagnosis: Lumbosacral radiculopathy, lumbosacral degenerative disc disease, lumbosacral spinal stenosis, postlaminectomy syndrome of the lumbar spine Surgery/Procedure Performed:: 1.? Spinal cord stimulator thoracolumbar leads placement x2 #2 spinal cord stimulator Medtronic Intellis placement #3 spinal cord stimulator generator pocket creation at the right gluteal region #4 spinal cord stimulator complex programming, 5-intraoperative fluoroscopic interpret ation ANESTHESIA: MAC COMPLICATIONS: None BLOOD LOSS: Minimal Implanted device: Spinal cord stimulator lead [id number] lot number [id number], lead #2? [id number] lot number [id number] Medtronic spinal cord stimulator generator intellus serial number [id number] PROCEDURE IN DETAIL: History and physical of today was reviewed. Risks and benefits of the procedure were explained. The patient understood, agreed to the procedure, informed consent was obtained. IV inserted per routine protocol. The patient was taken to the operating room, placed in the prone position with a pillow positioned underneath the abdomen. A 2 gm of Ancef IV piggyback was infused per anesthesia prior to incision. The lower back and right gluteal area was prepped and draped in a sterile fashion using iodine x3 Ioban was placed.? The C-arm was brought in position for AP view at the T12-L2 vertebral bodies under direct visualization fluoroscopy on a true AP view the T12-L2 interlaminar space was identified skin and subcutaneous tissue and size approximately 10 cc of a mix of 2% lidocaine and 0.25% Marcaine using a 25-gauge regular needle followed by a 25-gauge 3-1/2 inch spinal needle towards the interlaminar space at T12-L1 from the left paramedian approach, the skin and subcutaneous tissue were then anesthetized and using an 11-gauge blade was then taken down to the skin and subcutaneous tissue using a 14-gauge 3 1/2 inch Touhy needle provided by the [employer] kit the needle was passed through the skin towards the interlaminar space at T12-L1 and a paramedian approach the needle was then advanced under direct visualization fluoroscopy towards the interlaminar space at T12-L1 [id number] technique was then carried to air towards the interlaminar space at T12-L1 once the tip of the needle was in the epidural space and loss of resistance was encountered to air and after confirmation of AP as well as oblique view of the spinal cord stimulator lead was then advanced under direct visualization fl uoroscopy to be at the tip of the lead at tip of T8 and the bottom of the lead around mid T10 after confirmation of AP as well as lateral view to confirm correct placement of the lead in the posterior compartment of the epidural space the previous procedure was then repeated to a level? at L1-2 interlaminar space on the left paramedian approach, the needle was then redirected after repeated confirmation with [id number] technique and confirmation on AP as well as lateral view , the second lead was then inserted under direct visualization with fluoroscopy to be at the tip T8 and mid T10 area to the right of the previously inserted lead, the leads were were then connected to the external neurostimulator and patient was then awakened to confirm satisfactory coverage of the painful area once satisfactory coverage was then achieved the stylette of each needle was then removed the areas of the skin and subcutaneous tissue and then reanesthetized with the above mixture using a total of 10 cc 2 vertical incisions were made where the needle entry took place and approximately 2 cm each the incisions were taken down via cautery and blunt dissection to the fascial level hemostasis was maintained, the right gluteal area skin and subcutaneous tissue was then anesthetized with a total of 10 cc of the previous mixture of 0.25% Marcaine and 2% lidocaine using a 25-gauge regular needle, the incision was then made in a vertical incision approximately 5 cm in length was then taken down through the skin and subcutaneous tissue towards the fascia making sure hemostasis was then maintained via cautery, the spinal cord stimulator leads were then passed through the above incision and secured using the injex anchor and sutured down with a 2-0 silk to the fascia at that level the spinal cord stimulator leads were then tunneled via a tunneler provided by the [employer] kit towards the previously incised spinal cord stimulator battery at the right gluteal region skin and subcutaneous tissue were anesthetized with approximately 10 cc of a mix of 2% lidocaine and 0.25% Marcaine using a 25 gauge regular needle, skin and subcutaneous tissue was then taken down with the 11- gauge blade hemostasis was maintained with Bovie and direct pressure the incision was then taken down to the fascia and the battery was then secured with the 2-0 silk sutures that were the spinal cord stimulator leads the upper lead was then marked the new until spinal cord stimulator battery was then provided Via [employer] kit the battery was then reattached of the spinal cord stimulator make ensure that the top lead is attached to the top position from 0-7 electrodes and the bottom from 8-15 electrodes once impedance was then checked to be in the proper average number the intellis battery was then inserted into the pocket and impedance was then checked again the pocket was then inspected to confirm hemostasis in place, the intellis battery was then protected with a tyrx antibacterial? pouch and then secured to the fascia using a 2-0 silk to the upper eyes of the battery confirming an upward posterior facing writing of the intellis facing posterior,? once complete confirmation was obtained, the battery was then placed in the position and the the mid paramedians and the gluteal incisions were then closed primarily through a 3-0 Vicryl in a running fashion followed by a 4-0 Monocryl to the skin, hemostasis was maintained during the procedure via Bovie as well as pressure, the skin was then covered with a Steri- Strips and bacitracin and a sterile fashion patient was then returned into the supine position in a stable condition and returned to recovery in a stable condition, patient experienced no signs or symptoms of intrathecal or intravascular injection patient experienced no paresthesia the procedure was completed without any apparent difficulty or any complication the patient appeared to tolerate the procedure well, motor as well as sensory function was unchanged from prior to the procedure ESTIMATED BLOOD LOSS: Minimal less than 10 mL ASSESSMENT AND PLAN: This is a 47-year-old Female with lumbosacral radiculopathy, lumbosacral degenerative disc disease and lumbosacral spinal stenosis, postlaminectomy syndrome of the lumbar spine status post 1.? Spinal cord stimulator thoracolumbar leads placement x2 #2 spinal cord stimulator Medtronic Intellis generator placement #3 spinal cord stimulator generator pocket creation at the right gluteal region #4 spinal cord stimulator complex programming, 5- intraoperative fluoroscopic interpretation patient will continue her current m edications a prescription was provided to the patient?Keflex 500 mg 1 p.o. every 8 hours for 7 days, postop instruction were given in writing to the patient? as well as her and verbally, patient will follow approximately 1 week for reevaluation.
== END 2023-06-04 15:26 | disposition home or self-care (01) ==
LOC: SDC 10:30 → AC 10:31
PROVIDERS: PCP Nurse Practitioner Family; Referring Provider Anesthesiology Pain Medicine; Visit Provider Anesthesiology Pain Medicine
PROC: (CPT 63685; principal; 2023-06-04 12:05)
DX: Z45.42 Encounter for adjustment and management of neurostimulator (principal); M51.17 Intervertebral disc disorders with radiculopathy, lumbosacral region; M48.07 Spinal stenosis, lumbosacral region; M96.1 Postlaminectomy syndrome, not elsewhere classified; J45.909 Unspecified asthma, uncomplicated; E07.9 Disorder of thyroid, unspecified; Z79.890 Hormone replacement therapy; Z79.899 Other long term (current) drug therapy
CPT/HCPCS: 63685; 63650 ×2; 00300; 72100; 76000; C1778; C1820; J7120; J2405